=== PATIENT | male | born 1935 | race Caucasian/White ===

== ENCOUNTER → 2016-06-17 | Outpatient (CLI) | payer BC ==
[~2016-06-17] MED LIST: ASPI81TA28 PO; CALC500C50 PO; CZR25 PO; MULT-513 PO; SERT25TA PO
[2016-06-17 13:03] LABS: BASO % 0.1 %; BASO ABS # 0.01 K/uL (0-0.2); COMPLETE YES; EOS % 1.5 %; HEMATOCRIT 44.5 % (42-52); LYMPH ABS # 1.85 K/uL (1.2-3.4); MEAN CELL VOLUME 93.3 fL (80-100); MEAN CORPUSCULAR HEMOGLOBIN 33.1 pg (25-34); MEAN CORPUSCULAR HGB CONC 35.5 g/dl (32-36); MEAN PLATELET VOLUME 9.7 fL (7.4-10.4); NEUT % 61.4 %; PLATELET COUNT 222 K/uL (130-400); RED BLOOD COUNT 4.77 M/uL (4.7-6.1); WHITE BLOOD COUNT 7.12 K/uL (4.8-10.8)
[2016-06-17 13:16] LABS: ALT/SGPT 23 U/L (12-78); AST/SGOT 24 U/L (15-37); BLOOD UREA NITROGEN 15 mg/dl (7-18); BUN/CREATININE RATIO 15.8 (10-20); CALCIUM 9.2 mg/dl (8.5-10.1); CARBON DIOXIDE 23 mmol/L (21-32); CHLORIDE 101 mmol/L (98-107); CHOLESTEROL 160 mg/dl (0-200); CREATININE 0.93 mg/dl (0.60-1.40); GLUCOSE 119 mg/dl (70-99); POTASSIUM 4.3 mmol/L (3.5-5.1); SODIUM 135 mmol/L (136-145); TRIGLYCERIDES 87 mg/dl (0-150); VERY LOW DENSITY LIPOPROT CALC 17 mg/dl
[2016-06-17 13:26] LABS: ALB/GLOB RATIO 1.2 (0.9-2); ALKALINE PHOSPHATASE 72 U/L (45-117); CHOLESTEROL/HDL RATIO 2.9; HDL CHOLESTEROL 55 mg/dl
== END | disposition home or self-care (01) ==
LOC: C.LABSPEC 12:20
PROVIDERS: ATTEND Internal Medicine
DX: I10 Essential (primary) hypertension (principal); E78.5 Hyperlipidemia, unspecified; K59.00 Constipation, unspecified

== ENCOUNTER → 2016-12-16 | Outpatient (CLI) | payer BC ==
[2016-12-16 13:45] LABS: BASO % 0.1 %; BASO ABS # 0.01 K/uL (0-0.2); COMPLETE YES; EOS % 2.6 %; HEMATOCRIT 45.8 % (42-52); LYMPH % 25.4 %; LYMPH ABS # 1.93 K/uL (1.2-3.4); MEAN CELL VOLUME 94.4 fL (80-100); MEAN CORPUSCULAR HEMOGLOBIN 32.6 pg (25-34); MEAN CORPUSCULAR HGB CONC 34.5 g/dl (32-36); MEAN PLATELET VOLUME 9.3 fL (7.4-10.4); MONO % 11.9 %; PLATELET COUNT 231 K/uL (130-400); RED BLOOD COUNT 4.85 M/uL (4.7-6.1); WHITE BLOOD COUNT 7.59 K/uL (4.8-10.8)
[2016-12-16 14:16] LABS: ALT/SGPT 25 U/L (12-78); AST/SGOT 24 U/L (15-37); BLOOD UREA NITROGEN 9 mg/dl (7-18); BUN/CREATININE RATIO 9.2 (10-20); CALCIUM 9.2 mg/dl (8.5-10.1); CARBON DIOXIDE 27 mmol/L (21-32); CHLORIDE 101 mmol/L (98-107); CREATININE 0.94 mg/dl (0.60-1.40); GLUCOSE 98 mg/dl (70-99); POTASSIUM 4.4 mmol/L (3.5-5.1); SODIUM 135 mmol/L (136-145)
[2016-12-16 14:26] LABS: ALB/GLOB RATIO 1.1 (0.9-2); ALKALINE PHOSPHATASE 79 U/L (45-117)
[2016-12-17 07:54] LABS: ESTIMATED AVERAGE GLUCOSE 126 mg/dl; HA1C FLAG Normal (Normal)
--- NOTE | 2016-12-23 08:51 | CODING QUERY MEDICAL NECESSITY ---
SUPPORTING DIAGNOSIS NEEDED Dr. Chari Collins, A supporting diagnosis is required for the test/procedure performed on this patient in order for us to be reimbursed by the patient's insurance. Please provide a supporting diagnosis for the following test/procedure listed below next to the test name along with your signature. *If there is no additional diagnosis for this patient that would support the following test/procedure please document that below next to the test/procedure. Test(s)/Procedure(s) that require a supporting diagnosis: * [id number] GLYCATED HEMOGLOBIN DIAGNOSIS: DATE OF SERVICE: 12/16/16 Provider Signature: Date: Thank you Ish Meléndez [facility] Once completed, please kindly fax back to [phone] For questions please call [phone]
== END | disposition home or self-care (01) ==
LOC: C.LABSPEC 12:22
PROVIDERS: ATTEND Internal Medicine
DX: I10 Essential (primary) hypertension (principal); R63.4 Abnormal weight loss; Z85.46 Personal history of malignant neoplasm of prostate; R73.9 Hyperglycemia, unspecified

== ENCOUNTER 2017-10-14 09:36 | Inpatient (IN) | payer BC, OTHER ==
[~2017-10-14] VITALS: Ht 180.3 cm; Wt 86.5 kg
[2017-10-14] MEDS ORDERED: MULT-1093 PO (10:35)
[2017-10-14] MEDS ORDERED: ASPI-435 PO (10:35)
[2017-10-14] MEDS ORDERED: ALPR-412 PO (10:35)
[2017-10-14] MEDS ORDERED: LOSA1TAB PO (10:35)
[2017-10-14] MEDS ORDERED: NAPR1TAB9 PO (10:35)
[2017-10-14] MEDS ORDERED: SIME80CH PO (10:35)
[2017-10-14] MEDS ORDERED: FLUO20CA35 PO (10:35)
[2017-10-14 10:44] LABS: BASO % 0.1 %; BASO ABS # 0.01 K/uL (0-0.2); EOS % 0.7 %; EOS ABS # 0.05 K/uL (0-0.5); HEMATOCRIT 40.7 % (42-52); HEMOGLOBIN 14.8 g/dL (14.0-18.0); IG# 0.02 K/uL (0.00-0.02); LYMPH % 13.4 %; LYMPH ABS # 0.95 K/uL (1.2-3.4); MEAN CELL VOLUME 93.1 fL (80-100); MEAN CORPUSCULAR HEMOGLOBIN 33.9 pg (25-34); MEAN CORPUSCULAR HGB CONC 36.4 g/dl (32-36); MEAN PLATELET VOLUME 8.5 fL (7.4-10.4); MONO % 9.9 %; NEUT % 75.6 %; NEUT ABS # 5.37 K/uL (1.4-6.5); PLATELET COUNT 184 K/uL (130-400); RED CELL DISTRIBUTION WIDTH CV 12.8 % (11.5-14.5); RED CELL DISTRIBUTION WIDTH SD 43.9 fL (36.4-46.3)
--- NOTE | 2017-10-14 10:48 | EMERGENCY ROOM VISIT NOTE ---
History Report prepared by Alexander: Roberto Vega Under the Supervision of: Dr. Antoni Norman M.D. First contact with patient: 10:02 Chief Complaint: MENTAL HEALTH EVALUATION Stated Complaint: MENTAL HEALTH-ANXIETY/DARK THOUGHTS SENT BY PCP History of Present Illness The patient is an 82 year old white male with a past medical history of prostates cancer, spinal stenosis, and anxiety who presents to the ED with a cc of worsening anxiety beginning 3 months ago. Pt sates he was on sertraline without problems for 5 years. He reports he stopped taking it a few months ago and developed shakes in June. The patient's daughter notes he also started to have constipation. She states he was extremely compulsive and had to make sure he flushed his toilet and turned the facets off. The daughter reports he eventually started revolving his day around if he had a BM or not. She notes he started taking Xanax and Prozac in July, and he started to do slightly better. The daughter states the patient's Prozac was increased, and he is now more agitated. He reports he had a vision he was standing next to his grandchildren holding a knife. The patient notes he does not want to hurt them, but he feels like they may get hurt. He states he called his PCP and was told to come to the ED. Negative SI, HI, a history of hurting himself, alcohol use, tobacco use, drug use, auditory hallucinations, visual hallucination. Pt notes he does not have a psychiatrist or psychologist. All of his psychiatric needs are monitored by his PCP. Source of History: patient Onset: 3 months ago Quality: other (anxiety) Timing: worsening Modifying Factors (Worsening): other (increasing Prozac dosage) Note: Associated symptoms: visual thoughts of holding a knife Denies: SI, HI, a history of hurting himself, alcohol use, tobacco use, drug use , auditory hallucinations, visual hallucination. Review of Systems See HPI for pertinent positives and negatives. A total of ten systems were reviewed and were otherwise negative. Past Medical & Surgical Medical Problems: (1) Anxiety (2) OCD (obsessive compulsive disorder) (3) Prostate cancer (4) Spinal stenosis Family History Patient reports no known family medical history. Social History Smoking Status: Former Smoker Marital Status: Occupation Status: retired Current/Historical Medications Scheduled Alprazolam (Alprazolam), 0.25 MG PO BID Aspirin (Aspirin 81), 81 MG PO DAILY Fluoxetine (Prozac), 20 MG PO DAILY Losartan Potassium (Cozaar), 25 MG PO DAILY Multiple Vitamins W/ Minerals (Centrum Silver 50+Men), 1 TAB PO DAILY Naproxen (Aleve), 220 MG PO BID Simethicone (Gas-X), 160 MG PO TIDM Allergies Coded Allergies: No Known Allergies (Unverified , 07/07/13) Physical Exam Vital Signs Date Time Temp Pulse Resp B/P (MAP) Pulse Ox O2 Delivery O2 Flow Rate FiO2 10/14/17 11:40 81 18 136/78 95 Room Air 10/14/17 09:40 37.2 89 18 129/84 95 Room Air Physical Exam GENERAL: Awake, alert, well-appearing, NAD HENT: Normocephalic, atraumatic. EYES: Normal conjunctiva. Sclera non-icteric. PERRL. No anisocoria. NECK: Supple. No nuchal rigidity. FROM. RESPIRATORY: CTAB, no rhonchi, wheezing, crackles CARDIAC: RRR, no MRG ABDOMEN: Soft, NTND, BS+ MSK: No chest wall TTP, no LE edema NEURO: GCS 15, CN 2-12 intact, moves all 4s on command SKIN: No rash or jaundice noted. PSYCH: No SI, HI, or AVH Medical Decision & Procedures Laboratory Results 10/14/17 10:29 Red Blood Count 4.37, Mean Corpuscular Volume 93.1, Mean Corpuscular Hemoglobin 33.9, Mean Corpuscular Hemoglobin Concent 36.4, Mean Platelet Volume 8.5, Neutrophils (%) (Auto) 75.6, Lymphocytes (%) (Auto) 13.4, Monocytes (%) (Auto) 9.9, Eosinophils (%) (Auto) 0.7, Basophils (%) (Auto) 0.1, Neutrophils # (Auto) 5.37, Lymphocytes # (Auto) 0.95, Monocytes # (Auto) 0.70, Eosinophils # (Auto) 0.05, Basophils # (Auto) 0.01 10/14/17 10:29 Test 10/14/17 10:29 10/14/17 11:09 White Blood Count 7.10 K/uL (4.8-10.8) Red Blood Count 4.37 M/uL (4.7-6.1) Hemoglobin 14.8 g/dL (14.0-18.0) Hematocrit 40.7 % (42-52) Mean Corpuscular Volume 93.1 fL (80-100) Mean Corpuscular Hemoglobin 33.9 pg (25-34) Mean Corpuscular Hemoglobin Concent 36.4 g/dl (32-36) Platelet Count 184 K/uL (130-400) Mean Platelet Volume 8.5 fL (7.4-10.4) Neutrophils (%) (Auto) 75.6 % Lymphocytes (%) (Auto) 13.4 % Monocytes (%) (Auto) 9.9 % Eosinophils (%) (Auto) 0.7 % Basophils (%) (Auto) 0.1 % Neutrophils # (Auto) 5.37 K/uL (1.4-6.5) Lymphocytes # (Auto) 0.95 K/uL (1.2-3.4) Monocytes # (Auto) 0.70 K/uL (0.11-0.59) Eosinophils # (Auto) 0.05 K/uL (0-0.5) Basophils # (Auto) 0.01 K/uL (0-0.2) RDW Standard Deviation 43.9 fL (36.4-46.3) RDW Coefficient of Variation 12.8 % (11.5-14.5) Immature Granulocyte % (Auto) 0.3 % Immature Granulocyte # (Auto) 0.02 K/uL (0.00-0.02) Anion Gap 8.0 mmol/L (3-11) Est Creatinine Clear Calc Drug Dose 67.7 ml/min Estimated GFR () 92.1 Estimated GFR (Non- 79.4 BUN/Creatinine Ratio 12.9 (10-20) Calcium Level 8.4 mg/dl (8.5-10.1) Total Bilirubin 1.5 mg/dl (0.2-1) Direct Bilirubin 0.4 mg/dl (0-0.2) Aspartate Amino Transf (AST/SGOT) 24 U/L (15-37) Alanine Aminotransferase (ALT/SGPT) 23 U/L (12-78) Alkaline Phosphatase 75 U/L (45-117) Total Protein 7.5 gm/dl (6.4-8.2) Albumin 3.8 gm/dl (3.4-5.0) Thyroid Stimulating Hormone (TSH) 1.530 uIu/ml (0.300-4.500) Salicylates Level < 1.7 mg/dl (2.8-20) Acetaminophen Level < 2 ug/ml (10-30) Ethyl Alcohol mg/dL < 3.0 mg/dl (0-3) Urine Color YELLOW Urine Appearance CLEAR (CLEAR) Urine pH 7.5 (4.5-7.5) Urine Specific [place] 1.017 (1.000-1.030) Urine Protein NEG (NEG) Urine Glucose (UA) NEG (NEG) Urine Ketones 1+ (NEG) Urine Occult Blood NEG (NEG) Urine Nitrite NEG (NEG) Urine Bilirubin NEG (NEG) Urine Urobilinogen NEG (NEG) Urine Leukocyte Esterase NEG (NEG) Urine Opiates Screen NEG (NEG) Urine Methadone, Qualitative NEG (NEG) Urine Barbiturates NEG (NEG) Urine Phencyclidine (PCP) Level NEG (NEG) Ur Amphetamine/Methamphetamine NEG (NEG) MDMA (Ecstasy) Screen NEG (NEG) Urine Benzodiazepines Screen POS (NEG) Urine Cocaine Metabolite NEG (NEG) Urine Marijuana (THC) NEG (NEG) Laboratory results reviewed by me ED Course 1044: The patient was evaluated in room A05. A complete history and physical exam was performed. 1316: I reevaluated the patient and discussed his test results. The patient was accepted to [facility] for further management and care. Medical Decision Nursing notes reviewed. Ancillary studies and prior records reviewed. The patient is an 82 year old white male with a past medical history of prostates cancer, spinal stenosis, and anxiety who presents to the ED with a cc of worsening anxiety beginning 3 months ago. Differential diagnosis: Etiologies such as mood disorder, infection, hypoglycemia, electrolyte abnormalities, cardiac sources, intracerebral event, toxicologic, neurologic, as well as others were entertained. Patient was seen and evaluated the bedside. Patient does have a known history of anxiety and depression. Patient had been on sertraline this year but was taken off due to some what he describes as "shakes." Patient was then started on some Prozac and was taking some Xanax. Patient has had some morbid thoughts including holding a knife over his grandchildren. The patient denies any acute SI, HI, or AVH. The patient denies any alcohol or drug abuse. The patient did have blood work completed in the patient was seen by the mental health specialist. Mild hypocalcemia and patient's bilirubin is mildly elevated. Patient denies any abdominal discomfort. I told that they should follow-up with her PCP and if anything worsens could be evaluated while inpatient here. The patient was admitted as a voluntary inpatient treatment was taken upstairs. Medication Reconcilliation Current Medication List: was personally reviewed by me Blood Pressure Screening Patient's blood pressure: Elevated blood pressure Impression Primary Impression: Depression Scribe Attestation The scribe's documentation has been prepared under my direction and personally reviewed by me in its entirety. I confirm that the note above accurately reflects all work, treatment, procedures, and medical decision making performed by me. Departure Information Dispostion Mental Health Acute Care Referrals Shaun Pathak M.D. (PCP) Patient Instructions My [facility] Problem Qualifiers Primary Impression: Depression Depression Type: unspecified Qualified Codes: F32.9 - Major depressive disorder, single episode, unspecified
[2017-10-14 11:13] LABS: ALBUMIN 3.8 gm/dl (3.4-5.0); CALCIUM 8.4 mg/dl (8.5-10.1); CREATININE 0.88 mg/dl (0.60-1.40); POTASSIUM 4.2 mmol/L (3.5-5.1); TOTAL PROTEIN 7.5 gm/dl (6.4-8.2)
[2017-10-14] MEDS ORDERED: ALUMINUM/MAGNESIUM SUSP 30 ML UDC PO PRN (13:00)
[2017-10-14] MEDS ORDERED: ACETAMINOPHEN 325 MG TAB PO PRN (13:00)
[2017-10-14] MEDS ORDERED: MAGNESIUM HYDROXIDE SUSP 30 ML UDC PO PRN (13:00)
[2017-10-14] MEDS ORDERED: hydrOXYzine HCL 25 MG TAB PO PRN ×2 (13:00)
[2017-10-14] MEDS ORDERED: BISMUTH SUBSALICYLATE PER ML OMNICELL CHARGE PO PRN (13:00)
[2017-10-14] MEDS ORDERED: SODIUM CHLORIDE 0.65% NA SOLN 45 ML (OCEAN) PRN (13:00)
[2017-10-14 13:35] VITALS: O2SAT 96
--- NOTE | 2017-10-14 13:44 | Psychiatric History & Physical ---
History Date of Service October 14, 2017. Identifying Data Vikram Ac is a 82-year-old male with anxiety treated by his PCP who was admitted voluntarily on 10/14/2017 for worsening anxiety and intrusive thoughts of harming others. Chief Complaint "For some reason, come June this year, I started going downhill". History of Present Illness Patient presented to the emergency room today with his daughter on referral from his PCPs office for thoughts of harming others. He has a history of anxiety for which she was successfully treated with sertraline for 5 years, but stopped taking the medication several months ago, and developed "shakes" in June. He also became obsessed with his bowel movements, was revolving his entire day around whether or not he had a bowel movement, and was checking repeatedly to see if he flushed the toilet and turn to the faucets off. In July, he was started on fluoxetine and alprazolam, and symptoms improved. His fluoxetine dose was increased at some point, and he became more agitated. He reported a vision of himself standing next to his grandchildren holding a knife , and although he stated he did not want to hurt them, he was afraid that they would get hurt. He called his PCP who instructed him to go to the emergency room. Spoke to Dr. Chari Collins, his PCP who treats his anxiety. He reports the patient was on sertraline for years, and was 25mg daily when he started seeing him in 2012. He reports obsessive thoughts, often around his urinary frequency and bowel movements. He went off the SSRI but his then noticed symptoms, so he was started on fluoxetine 10mg. On 10/01/17 he reported increased obsessions with his bowel movements, so the dose was increased to 20mg daily. He was also prescribing alprazolam 0.25mg bid prn. The patient reports he has had long standing anxiety, but it worsened in Jun. when he started having constipation and became more worried about symptoms. This past Thursday, he had intrusive thoughts of himself standing beside his grandchildren while holding a knife, and worried that he would harm them. He denies any intent or desire to harm them, but felt "panicked" about it. Denies VH, "it was just a thought." He stayed up all night worrying about it. He told his the next day, and felt better. The next morning, he woke up and "thought I had a screwdriver in my hand," even though he didn't. Again denies that he had a hallucination, but just "saw it in my mind." This caused him to feel very scared, and they called his family doctor. He notes his family was all supposed to come into town this weekend for the holiday, and he was afraid to have his grandkids in the house with these thoughts. He reports anxiety for several years, for which he was initially on sertraline, which helped. He says his PCP switched him from sertraline to fluoxetine, and isn't sure why as he thinks the sertraline was working and his anxiety was well controlled. He says he's always worried a lot, about everything, finds it difficult to control the worry, and it affects his daily life. He endorsing repeated checking everything in the house, including lights, stove, faucets. He will shut things off several times to ensure that it's really off. He says he has prostate cancer 20+ years ago, which has caused urinary frequency, so goes to the bathroom frequently. He has been very focused on his bowel movements, and says his "whole day is ruined if I didn't have a bowel movement." He has been isolating at home, and relies heavily on his , feeling very anxious being away from her. He reports episodes of high anxiety and "shakiness," but denies other panic symptoms. Describes mood as anxious, "not a very nice person to be around." Has been more irritable and sad, denies tearfulness, SI, and anhedonia. Energy has been low, appetite is decreased with at least a 10lb weight loss in the past 3 months, and he feels easily fatigued. Denies hallucinations, jose maria, paranoia. Does report memory has been worse over the past 3 months, not able to recall names. He is worried that the fluoxetine is causing side effects, as he and his read about it. He has been taking Xanax 0.25mg bid since Jun., and initially thought it helped, but anxiety then worsened over the past few weeks, despite increasing his fluoxetine dose. Exacerbating factors include worsening physical health, as hasn't been able to go to the gym regularly for the past two months due to spinal stenosis and chronic rib and back pain. He enjoys watching sports on TV, and time with family. Past Psychiatric History Current OP Treatment: no current treatment Prior OP Treatment: no prior treatment Prior Psych Hospitalizations: none Access to a Gun: Yes Suicide Attempts: No Past Medical/Surgical History (1) Spinal stenosis (2) Prostate cancer (3) Fracture dislocation of ankle Allergies Allergies: Coded Allergies: No Known Allergies (Unverified , 07/07/13) Home Medications Scheduled Alprazolam (Alprazolam), 0.25 MG PO BID Aspirin (Aspirin 81), 81 MG PO DAILY Fluoxetine (Prozac), 20 MG PO DAILY Losartan Potassium (Cozaar), 25 MG PO DAILY Multiple Vitamins W/ Minerals (Centrum Silver 50+Men), 1 TAB PO DAILY Naproxen (Aleve), 220 MG PO BID Simethicone (Gas-X), 160 MG PO TIDM Family History Patient reports no known family medical history. History of Suicide: No History of Substance Abuse: Yes (Oldest brother "drank himself to .") Psychiatric History: Yes (older sister with "mental problems her whole life," and had ECT. Doesn't know her diagnoses, notes she was a hoarder. ) Alcohol Use Alcohol Use In Past 12 Months: Yes (Occasional) Used to drink heavily, up to 6 beers daily, but cut back in the 90s. Now drinks once every few months, 1 drink. Smoking Use Smoking Status: Former Smoker Substance History Denies. Personal History Lives in: [place] with his Childhood: From [place]. Youngest of 5 children. Living in [place] since 1964. 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 Relationship History: Children: 4 children, 9 grandkids Spiritual Affiliation: "I read the Bible every day." [facility] History: none Psychological Trauma History: Denies Hx Traumatic Event, Other Additional Comments: Hasn't been going to religious for the past few months due to not feeling well. Review of Systems 10 systems reviewed - +rib and back pain, chronic urinary frequency, constipation, hard of hearing and has hearing aids, difficulty walking (uses cane), leg numbness, decreased appetite. Others negative except as stated above. Examination Physical Examination A physical exam was performed [in the ER] [on the medical floor] prior to admission to the unit by [ ]. I accept that physical as correct/medical clearance for the inpatient physical exam. Vital Signs Vital Signs Past 12 Hours Date Time Temp Pulse Resp B/P (MAP) Pulse Ox O2 Delivery O2 Flow Rate FiO2 10/14/17 13:12 89 18 139/78 96 Room Air 10/14/17 11:40 81 18 136/78 95 Room Air 10/14/17 09:40 37.2 89 18 129/84 95 Room Air Laboratory Results Last 24 Hours Test 10/14/17 10:29 10/14/17 11:09 White Blood Count 7.10 K/uL Red Blood Count 4.37 M/uL Hemoglobin 14.8 g/dL Hematocrit 40.7 % Mean Corpuscular Volume 93.1 fL Mean Corpuscular Hemoglobin 33.9 pg Mean Corpuscular Hemoglobin Concent 36.4 g/dl Platelet Count 184 K/uL Mean Platelet Volume 8.5 fL Neutrophils (%) (Auto) 75.6 % Lymphocytes (%) (Auto) 13.4 % Monocytes (%) (Auto) 9.9 % Eosinophils (%) (Auto) 0.7 % Basophils (%) (Auto) 0.1 % Neutrophils # (Auto) 5.37 K/uL Lymphocytes # (Auto) 0.95 K/uL Monocytes # (Auto) 0.70 K/uL Eosinophils # (Auto) 0.05 K/uL Basophils # (Auto) 0.01 K/uL RDW Standard Deviation 43.9 fL RDW Coefficient of Variation 12.8 % Immature Granulocyte % (Auto) 0.3 % Immature Granulocyte # (Auto) 0.02 K/uL Sodium Level 131 mmol/L Potassium Level 4.2 mmol/L Chloride Level 97 mmol/L Carbon Dioxide Level 26 mmol/L Anion Gap 8.0 mmol/L Blood Urea Nitrogen 11 mg/dl Creatinine 0.88 mg/dl Est Creatinine Clear Calc Drug Dose 67.7 ml/min Estimated GFR () 92.1 Estimated GFR (Non- 79.4 BUN/Creatinine Ratio 12.9 Random Glucose 99 mg/dl Calcium Level 8.4 mg/dl Total Bilirubin 1.5 mg/dl Direct Bilirubin 0.4 mg/dl Aspartate Amino Transf (AST/SGOT) 24 U/L Alanine Aminotransferase (ALT/SGPT) 23 U/L Alkaline Phosphatase 75 U/L Total Protein 7.5 gm/dl Albumin 3.8 gm/dl Thyroid Stimulating Hormone (TSH) 1.530 uIu/ml Salicylates Level < 1.7 mg/dl Acetaminophen Level < 2 ug/ml Ethyl Alcohol mg/dL < 3.0 mg/dl Urine Color YELLOW Urine Appearance CLEAR Urine pH 7.5 Urine Specific [place] 1.017 Urine Protein NEG Urine Glucose (UA) NEG Urine Ketones 1+ Urine Occult Blood NEG Urine Nitrite NEG Urine Bilirubin NEG Urine Urobilinogen NEG Urine Leukocyte Esterase NEG Urine Opiates Screen NEG Urine Methadone, Qualitative NEG Urine Barbiturates NEG Urine Phencyclidine (PCP) Level NEG Ur Amphetamine/Methamphetamine NEG MDMA (Ecstasy) Screen NEG Urine Benzodiazepines Screen POS Urine Cocaine Metabolite NEG Urine Marijuana (THC) NEG Mental Examination During interview pt is: alert and oriented, cooperative Appearance: appropriately dressed, appropriately groomed Eye contact is: fair Motor behavior is: steady gait & station (walks with a cane), no abnormal motor movements Speech: normal in rate, rhythm & volume Affect: mood congruent, blunted Mood is: depressed, anxious Thought process: goal directed, linear, logical, clear, coherent Thought content: reality based without delusions Suicidal thought are: denied Homicidal thoughts are: present Hallucinations: denies auditory, denies visual Cognition: memory grossly intact, attention grossly intact, language grossly intact Intelligence estimated to be: above average Insight: fair Judgement: fair Impression / Recommendations Impression 82-year-old male with a history of anxiety treated by his PCP who presents with worsening anxiety and depression and intrusive thoughts to harm others. He was switched from low-dose sertraline to fluoxetine several months ago, and says his symptoms worsened at that time. He had 2 episodes of intrusive thoughts of harming others in the past 2 days, which were very concerning to him. He requires inpatient treatment due to the severity of his symptoms and the risk of harm to himself or others. Inventory Assets Strengths: Intelligence, good insight, supportive family, willing for treatment Needs: Medication adjustments to target severe anxiety, outpatient care Risk Factors Assessment Male: Yes : Yes /single/: No Higher / Fall in social status: No Access to guns: Yes Health problems: Yes Mental Health Diagnoses: Yes Substance use disorders: No Previous attempt: No Previous psychiatric stay: No Hopelessness: No Smoker: No Protective Factors Assessment Hinduism beliefs: Yes : Yes Responsible for young children: No Employed: No Stable relationships: Yes Supportive family: Yes Good rapport with provider: Yes Recommendations (1) Anxiety 10/14 -meets criteria for generalized anxiety disorder. Discussed his diagnoses with him, and the treatment options. Feels symptoms are much better controlled on sertraline, and would like to switch back. Discontinue fluoxetine, and start sertraline 25 mg daily tomorrow. May benefit from an increase to 50 mg daily, as he had never been on doses over 25 mg in the past. -discussed risks of long-term benzodiazepine use, including cognitive impairment (which he is already reporting), increased fall risk, development of tolerance, and AMS. Ideally these would be used only short-term, and only when needed. He feels it is helpful for bedtime, so will schedule alprazolam 0.25 mg nightly, and ordered the second dose daily as needed. He has been advised not to mix this with alcohol. Would recommend it be tapered off as soon as his symptoms stabilized. -Involve the patient in groups and therapy on the unit, work on healthy coping skills, behavioral techniques for managing anxiety, and a discharge safety plan. -Family meeting with and daughter. Review plan to secure guns. -Refer for outpatient psychiatric care. Care coordinated with his PCP, Dr. Felix, today. (2) OCD (obsessive compulsive disorder) 10/14 -switch from fluoxetine to sertraline. Introduced the role of therapy and treatment of OCD, and refer for outpatient therapy (3) Depression 10/14 - Starting to develop depressive symptoms in the context of worsening anxiety. Encourage group attendance and participation CPT Code Initial Hospital Care: 46247 Problem Qualifiers (1) Depression: Depression Type: major depressive disorder Major depression recurrence: single episode Active/Remission status: currently active Major depression episode severity: moderate Qualified Codes: F32.1 - Major depressive disorder , single episode, moderate
[2017-10-14] MEDS ORDERED: ALPRAZOLAM 0.25 MG TAB PO PRN ×2 (14:30→14:45)
[2017-10-14 16:16] VITALS: BP 103/74; PULSE 73; TEMP 36.5; Ht 180.3 cm; Wt 86.5 kg
[2017-10-14] MEDS: SIMETHICONE 80 MG CHEW PO SCH (17:13)
[2017-10-14] MEDS: POLYETHYLENE (MIRALAX) 17 GM PACK PO PRN (18:56)
[2017-10-14] MEDS: ALPRAZOLAM 0.25 MG TAB PO SCH (21:32)
[2017-10-14] MEDS: NAPROXEN 250 MG TAB PO SCH (21:33)
[2017-10-15 06:52] VITALS: BP_SYST 120; BP_SYST 121; BP_DIAS 68; BP_DIAS 72; PULSE 59; PULSE 61; TEMP 36.5
[2017-10-15] MEDS: CEROVITE ADV FORMULA TAB PO SCH (07:55)
[2017-10-15] MEDS: LOSARTAN POTASSIUM 25 MG TAB PO SCH (07:55)
[2017-10-15] MEDS: SIMETHICONE 80 MG CHEW PO SCH ×3 (07:55→17:49)
[2017-10-15] MEDS: ASPIRIN 81 MG ECTAB PO SCH (07:55)
[2017-10-15] MEDS: NAPROXEN 250 MG TAB PO SCH (08:07)
[2017-10-15] MEDS ORDERED: NAPROXEN 250 MG TAB PO PRN (08:30)
[2017-10-15] MEDS ORDERED: SERTRALINE HCL 50 MG TAB PO SCH (09:00)
--- NOTE | 2017-10-15 10:59 | Psychiatric Progress Notes ---
Progress Note Date of Service October 15, 2017. Interval History Vikram Ac is a 82-year-old male with anxiety treated by his PCP who was admitted voluntarily on 10/14/2017 for worsening anxiety and intrusive thoughts of harming others. Chief Complaint "Better since I learned the system ". Subjective Patient was seen & assessed with Sreedhar Owusu MS4, and interval progress reviewed with nursing. Staff report he was very anxious yesterday, although reported it was helpful to have staff explain what would be happening next, and that he would be checked on overnight. He was very worried about being able to get to the bathroom in time overnight. His family visited, and his affect brightened when they were here. He is attending groups, and met with the parks worker today to schedule a family meeting. He received his scheduled dose of alprazolam last night, but did not require the as needed dose. On my assessment, he states that he was very anxious upon arriving on the unit, as he did not realize "that would be so many restrictions." He feels more comfortable now that he has settled in. His mood is improved, but he continues to have anxiety. He says he woke up in the middle of the night and felt "jittery," but managed it by praying and thinking about positive memories involving his family , and was able to fall back asleep. Less compulsions here, as the faucets are automatic and he doesn't have to check that the doors are locked or flip the light switches. He denies SI and HI, no intrusive thoughts of harming others. He had a good visit with his family, notes it was "too short" and misses them. He is tolerating sertraline well and agreeable to increasing his dose to 50mg for tomorrow. Review of Systems No GI symptoms, + back pain Sleep Information Total Hours of Sleep: 6.50 Meal Information Percent of Breakfast Consumed: 100 Percent of Dinner Consumed: 95 Mental Status Exam During interview pt is: alert and oriented, cooperative Appearance: appropriately dressed, appropriately groomed Eye contact is: good Motor behavior is: steady gait & station (walks with a cane), no abnormal motor movements Speech: normal in rate, rhythm & volume Affect: mood congruent, anxious (but bright, reactive, smiling) Mood is: other ("better") Thought process: goal directed, linear, logical, clear, coherent Thought content: reality based without delusions Suicidal thought are: denied Homicidal thoughts are: present Hallucinations: denies auditory, denies visual Cognition: memory grossly intact, attention grossly intact, language grossly intact Intelligence estimated to be: above average Insight: fair Judgement: fair Impression 82-year-old male with a history of anxiety treated by his PCP who presents with worsening anxiety and depression and intrusive thoughts to harm others. He was switched from low-dose sertraline to fluoxetine several months ago, and says his symptoms worsened at that time. He had 2 episodes of intrusive thoughts of harming others in the 2 days prior to presentation, which were very concerning to him. He opted to switch back to sertraline, and we are titrating to an effective dose, while introducing techniques that he can utilize to manage his severe anxiety and OCD. He requires inpatient treatment due to the severity of his symptoms and the risk of harm to himself or others. Plan (1) Anxiety 10/14 -meets criteria for generalized anxiety disorder. Discussed his diagnoses with him, and the treatment options. Feels symptoms are much better controlled on sertraline, and would like to switch back. Discontinue fluoxetine, and start sertraline 25 mg daily tomorrow. May benefit from an increase to 50 mg daily, as he had never been on doses over 25 mg in the past. -discussed risks of long-term benzodiazepine use, including cognitive impairment (which he is already reporting), increased fall risk, development of tolerance, and AMS. Ideally these would be used only short-term, and only when needed. He feels it is helpful for bedtime, so will schedule alprazolam 0.25 mg nightly, and ordered the second dose daily as needed. He has been advised not to mix this with alcohol. Would recommend it be tapered off as soon as his symptoms stabilized. -Involve the patient in groups and therapy on the unit, work on healthy coping skills, behavioral techniques for managing anxiety, and a discharge safety plan. -Family meeting with and daughter. Review plan to secure guns. -Refer for outpatient psychiatric care. Care coordinated with his PCP, Dr. Felix, today. 10/15 - Increase sertraline to 50mg daily for tomorrow. Continue current dose of alprazolam - if doesn't need daytime prn dose, would discontinue at discharge. - Refer for OP psychiatric f/u and therapy. - Family meeting with and daughter. - Work on safety plan and coping skills. (2) OCD (obsessive compulsive disorder) 10/14 -switch from fluoxetine to sertraline. Introduced the role of therapy and treatment of OCD, and refer for outpatient therapy 10/15 - See above. (3) Depression 10/14 - Starting to develop depressive symptoms in the context of worsening anxiety. Encourage group attendance and participation Discharge / Aftercare Planning Primary Care Physician: Name: Dr. Felix Appointment Notes: [address] [place] [id number] Visit Code E&M Code: 71286 Inventory Assets Strengths: Intelligence, good insight, supportive family, willing for treatment Needs: Medication adjustments to target severe anxiety, outpatient care Risk Factors Assessment Male: Yes : Yes /single/: No Higher / Fall in social status: No Access to guns: Yes Health problems: Yes Mental Health Diagnoses: Yes Substance use disorders: No Previous attempt: No Family history of suicide: No Previous psychiatric stay: No Hopelessness: No Smoker: No Protective Factors Assessment Mormon beliefs: Yes : Yes Responsible for young children: No Employed: No Stable relationships: Yes Supportive family: Yes Good rapport with provider: Yes Data Vital Signs Last 24 Hrs: Date Time Temp Pulse Resp B/P (MAP) Pulse Ox O2 Delivery O2 Flow Rate FiO2 10/15/17 06:52 36.5 61 18 121/68 59 120/72 10/14/17 16:16 36.5 73 20 103/74 10/14/17 13:35 89 18 139/78 96 10/14/17 13:12 89 18 139/78 96 Room Air 10/14/17 11:40 81 18 136/78 95 Room Air Meds Administered Last 24 Hrs: Meds Administered (Past 24Hrs) Medications (Trade) Dose Ordered Sig/Ruba Route Start Time Stop Time Status Last Admin Dose Admin Aspirin (Ecotrin Tab) 81 mg DAILY PO 10/15/17 09:00 11/14/17 08:59 10/15/17 07:55 81 MG Losartan Potassium (coZAAR TAB) 25 mg DAILY PO 10/15/17 09:00 6/23/18 08:59 10/15/17 07:55 25 MG Multivitamins/ Minerals (Multivitamin W/ Minerals Tab) 1 tab DAILY PO 10/15/17 09:00 11/14/17 08:59 10/15/17 07:55 1 TAB Simethicone (Mylicon Chew Tab) 160 mg TIDM PO 10/14/17 17:45 11/13/17 17:59 10/15/17 07:55 160 MG Naproxen (Naprosyn Tab) 250 mg BID PO 10/14/17 21:00 10/15/17 08:18 DC 10/14/17 21:33 250 MG Polyethylene (Miralax Powder Packet) 17 gm DAILY PRN PO 10/14/17 14:30 11/13/17 14:29 10/14/17 18:56 17 GM Alprazolam (Xanax Tab) 0.25 mg HS PO 10/14/17 22:00 11/13/17 14:29 10/14/17 21:32 0.25 MG Sertraline HCl (Zoloft Tab) 25 mg QAM PO 10/15/17 09:00 11/14/17 08:59 10/15/17 07:56 25 MG Lab Results Last 24 Hrs: Last 24 Hours Test 10/14/17 10:29 10/14/17 11:09 White Blood Count 7.10 K/uL Red Blood Count 4.37 M/uL Hemoglobin 14.8 g/dL Hematocrit 40.7 % Mean Corpuscular Volume 93.1 fL Mean Corpuscular Hemoglobin 33.9 pg Mean Corpuscular Hemoglobin Concent 36.4 g/dl Platelet Count 184 K/uL Mean Platelet Volume 8.5 fL Neutrophils (%) (Auto) 75.6 % Lymphocytes (%) (Auto) 13.4 % Monocytes (%) (Auto) 9.9 % Eosinophils (%) (Auto) 0.7 % Basophils (%) (Auto) 0.1 % Neutrophils # (Auto) 5.37 K/uL Lymphocytes # (Auto) 0.95 K/uL Monocytes # (Auto) 0.70 K/uL Eosinophils # (Auto) 0.05 K/uL Basophils # (Auto) 0.01 K/uL RDW Standard Deviation 43.9 fL RDW Coefficient of Variation 12.8 % Immature Granulocyte % (Auto) 0.3 % Immature Granulocyte # (Auto) 0.02 K/uL Sodium Level 131 mmol/L Potassium Level 4.2 mmol/L Chloride Level 97 mmol/L Carbon Dioxide Level 26 mmol/L Anion Gap 8.0 mmol/L Blood Urea Nitrogen 11 mg/dl Creatinine 0.88 mg/dl Est Creatinine Clear Calc Drug Dose 67.7 ml/min Estimated GFR () 92.1 Estimated GFR (Non- 79.4 BUN/Creatinine Ratio 12.9 Random Glucose 99 mg/dl Calcium Level 8.4 mg/dl Total Bilirubin 1.5 mg/dl Direct Bilirubin 0.4 mg/dl Aspartate Amino Transf (AST/SGOT) 24 U/L Alanine Aminotransferase (ALT/SGPT) 23 U/L Alkaline Phosphatase 75 U/L Total Protein 7.5 gm/dl Albumin 3.8 gm/dl Thyroid Stimulating Hormone (TSH) 1.530 uIu/ml Salicylates Level < 1.7 mg/dl Acetaminophen Level < 2 ug/ml Ethyl Alcohol mg/dL < 3.0 mg/dl Urine Color YELLOW Urine Appearance CLEAR Urine pH 7.5 Urine Specific [facility] 1.017 Urine Protein NEG Urine Glucose (UA) NEG Urine Ketones 1+ Urine Occult Blood NEG Urine Nitrite NEG Urine Bilirubin NEG Urine Urobilinogen NEG Urine Leukocyte Esterase NEG Urine Opiates Screen NEG Urine Methadone, Qualitative NEG Urine Barbiturates NEG Urine Phencyclidine (PCP) Level NEG Ur Amphetamine/Methamphetamine NEG MDMA (Ecstasy) Screen NEG Urine Benzodiazepines Screen POS Urine Cocaine Metabolite NEG Urine Marijuana (THC) NEG Problem Qualifiers (1) Depression: Depression Type: major depressive disorder Major depression recurrence: single episode Active/Remission status: currently active Major depression episode severity: moderate Qualified Codes: F32.1 - Major depressive disorder , single episode, moderate
[2017-10-15] MEDS: POLYETHYLENE (MIRALAX) 17 GM PACK PO PRN (17:49)
[2017-10-15] MEDS: ALPRAZOLAM 0.25 MG TAB PO SCH (21:27)
[2017-10-16 06:35] VITALS: BP_SYST 121; BP_SYST 136; BP_DIAS 75; BP_DIAS 78; PULSE 70; PULSE 72; TEMP 36.6
[2017-10-16] MEDS: SERTRALINE HCL 50 MG TAB PO SCH (08:40)
[2017-10-16] MEDS: CEROVITE ADV FORMULA TAB PO SCH (08:40)
[2017-10-16] MEDS: SIMETHICONE 80 MG CHEW PO SCH ×3 (08:40→18:09)
[2017-10-16] MEDS: ASPIRIN 81 MG ECTAB PO SCH (08:40)
[2017-10-16] MEDS: LOSARTAN POTASSIUM 25 MG TAB PO SCH (08:40)
--- NOTE | 2017-10-16 09:25 | Psychiatric Progress Notes ---
Progress Note Date of Service October 16, 2017. Interval History Vikram Ac is a 82-year-old male with anxiety treated by his PCP who was admitted voluntarily on 10/14/2017 for worsening anxiety and intrusive thoughts of harming others. Chief Complaint "I'm just trying to get everything in order this morning before my get together , feeling a little anxious". Subjective Patient was seen & assessed interval progress reviewed with Treatment Team. Staff reports the patient has shown improvement in his level of anxiety while here on the unit. He is scheduled for a family meeting with his and youngest daughter today. Pt was seen this morning to assess progress since admission. He states he has been feeling "a bit jittery" this morning, as he is not sure what to expect at his family session. Pt states he has noticed a decrease in anxiety overall since his admission. He states the initial day was "overwhelming", but he has started to settle in to the unit a bit more. Pt denies side effects with the taper from fluoxetine to sertraline. Pt denies change to sleep or appetite. Denies SI or onset of new psychiatric concerns. Review of Systems Psych: denies symptoms other than stated above Constitutional: denied Cardiovascular: denied GI: reports fluctuations between diarrhea and constipation Neurologic: denied Remainder of 10 body systems also reviewed and denied other than noted above. Sleep Information Total Hours of Sleep: 8.00 Meal Information Percent of Breakfast Consumed: 100 Percent of Lunch Consumed: 100 Percent of Dinner Consumed: 25 Mental Status Exam During interview pt is: alert and oriented, cooperative Appearance: appropriately dressed, appropriately groomed Eye contact is: good Motor behavior is: steady gait & station, no abnormal motor movements Speech: normal in rate, rhythm & volume Affect: mood congruent, anxious (affect bright and reactive) Mood is: anxious ("jittery this morning"), other ("feeling better overall") Thought process: goal directed, linear, logical, clear, coherent Thought content: reality based without delusions Suicidal thought are: denied Homicidal thoughts are: denied Hallucinations: denies auditory, denies visual Cognition: memory grossly intact, attention grossly intact, language grossly intact Intelligence estimated to be: above average Insight: fair Judgement: fair Impression Pt reports improvement in level of anxiety since settling in to the unit a bit more. He denies any side effects or concerns related to switching from fluoxetine back to sertraline. Pt denies any thoughts of self harm and does not report any concerns for intrusive thoughts of harming others. Pt states his anxiety has been decreased and continuous tapering of alprazolam has been tolerable. He has a family meet scheduled today with his and daughter. Pt is looking forward to returning home, and will be able to better gauge length of ongoing treatment following his family session. At this point requires ongoing inpatient mental health treatment as we continue to titrate medications and focus on the development of healthy and sustainable coping skills to better manage anxiety. Plan (1) Anxiety 10/14 -meets criteria for generalized anxiety disorder. Discussed his diagnoses with him, and the treatment options. Feels symptoms are much better controlled on sertraline, and would like to switch back. Discontinue fluoxetine, and start sertraline 25 mg daily tomorrow. May benefit from an increase to 50 mg daily, as he had never been on doses over 25 mg in the past. -discussed risks of long-term benzodiazepine use, including cognitive impairment (which he is already reporting), increased fall risk, development of tolerance, and AMS. Ideally these would be used only short-term, and only when needed. He feels it is helpful for bedtime, so will schedule alprazolam 0.25 mg nightly, and ordered the second dose daily as needed. He has been advised not to mix this with alcohol. Would recommend it be tapered off as soon as his symptoms stabilized. -Involve the patient in groups and therapy on the unit, work on healthy coping skills, behavioral techniques for managing anxiety, and a discharge safety plan. -Family meeting with and daughter. Review plan to secure guns. -Refer for outpatient psychiatric care. Care coordinated with his PCP, Dr. Felix, today. 10/15 - Increase sertraline to 50mg daily for tomorrow. Continue current dose of alprazolam - if doesn't need daytime prn dose, would discontinue at discharge. - Refer for OP psychiatric f/u and therapy. - Family meeting with and daughter. - Work on safety plan and coping skills. 10/06 - Sertraline 50mg; titrating as needed - Alprazolam .25 qHS; has not required daily prn of same dose - Family session today; encourage work on safety plan in preparation for discharge in the next few days - Will be seeing Dr. Marcelo for psychiatric med management and Sami Pappas for OP therapy sessions with focus on treatment of OCD. (2) OCD (obsessive compulsive disorder) 10/14 -switch from fluoxetine to sertraline. Introduced the role of therapy and treatment of OCD, and refer for outpatient therapy 10/15 - See above. 10/16 - sertraline at 50mg qAM (3) Depression 10/14 - Starting to develop depressive symptoms in the context of worsening anxiety. Encourage group attendance and participation Discharge / Aftercare Planning Primary Care Physician: Name: Dr. Felix Appointment Notes: [address] [place] [id number] Psychiatrist: Name: Salbador - Dr. Cassi Marcelo - bring credit card , ID , and insurance card Date of Appointment: October 22, 2017 Time of Appointment: 12:30 pm Appointment Notes: [address] [facility] [address], [place] [address] Therapist: Name: Dr. Eugene Pappas Date of Appointment: October 21, 2017 Time of Appointment: 2:00 pm Appointment Notes: [address], [place] [address] Can Top Setter: Name: none Visit Code E&M Code: 33169 Inventory Assets Strengths: Intelligence, good insight, supportive family, willing for treatment Needs: Medication adjustments to target severe anxiety, outpatient care Risk Factors Assessment Male: Yes : Yes /single/: No Higher / Fall in social status: No Access to guns: Yes Health problems: Yes Mental Health Diagnoses: Yes Substance use disorders: No Previous attempt: No Family history of suicide: No Previous psychiatric stay: No Hopelessness: No Smoker: No Protective Factors Assessment Sikhism beliefs: Yes : Yes Responsible for young children: No Employed: No Stable relationships: Yes Supportive family: Yes Good rapport with provider: Yes Data Vital Signs Last 24 Hrs: Date Time Temp Pulse Resp B/P (MAP) Pulse Ox O2 Delivery O2 Flow Rate FiO2 10/16/17 06:35 36.6 70 18 136/75 72 121/78 Meds Administered Last 24 Hrs: Meds Administered (Past 24Hrs) Medications (Trade) Dose Ordered Sig/Ruba Route Start Time Stop Time Status Last Admin Dose Admin Aspirin (Ecotrin Tab) 81 mg DAILY PO 10/15/17 09:00 11/14/17 08:59 10/16/17 08:40 81 MG Losartan Potassium (coZAAR TAB) 25 mg DAILY PO 10/15/17 09:00 11/14/17 08:59 10/16/17 08:40 25 MG Multivitamins/ Minerals (Multivitamin W/ Minerals Tab) 1 tab DAILY PO 10/15/17 09:00 11/14/17 08:59 10/16/17 08:40 1 TAB Simethicone (Mylicon Chew Tab) 160 mg TIDM PO 10/14/17 17:45 11/13/17 17:59 10/16/17 08:40 160 MG Naproxen (Naprosyn Tab) 250 mg BID PO 10/14/17 21:00 10/15/17 08:18 DC 10/14/17 21:33 250 MG Polyethylene (Miralax Powder Packet) 17 gm DAILY PRN PO 10/14/17 14:30 11/13/17 14:29 10/15/17 17:49 17 GM Alprazolam (Xanax Tab) 0.25 mg HS PO 10/14/17 22:00 11/13/17 14:29 10/15/17 21:27 0.25 MG Sertraline HCl (Zoloft Tab) 25 mg QAM PO 10/15/17 09:00 10/15/17 13:35 DC 10/15/17 07:56 25 MG Sertraline HCl (Zoloft Tab) 50 mg QAM PO 10/16/17 09:00 11/14/17 08:59 10/16/17 08:40 50 MG Problem Qualifiers (1) Depression: Depression Type: major depressive disorder Major depression recurrence: single episode Active/Remission status: currently active Major depression episode severity: moderate Qualified Codes: F32.1 - Major depressive disorder , single episode, moderate
[2017-10-16] MEDS ORDERED: POLYETHYLENE (MIRALAX) 17 GM PACK PO SCH (17:30)
[2017-10-16] MEDS ORDERED: ALPRAZOLAM 0.25 MG TAB PO SCH (21:00)
[2017-10-17 07:05] VITALS: BP_SYST 122; BP_SYST 133; BP_DIAS 75; BP_DIAS 80; PULSE 69; PULSE 70; TEMP 36.4
[2017-10-17] MEDS: CEROVITE ADV FORMULA TAB PO SCH (08:53)
[2017-10-17] MEDS: SIMETHICONE 80 MG CHEW PO SCH (08:53)
[2017-10-17] MEDS: LOSARTAN POTASSIUM 25 MG TAB PO SCH (08:53)
[2017-10-17] MEDS: ASPIRIN 81 MG ECTAB PO SCH (08:53)
[2017-10-17] MEDS: SERTRALINE HCL 50 MG TAB PO SCH (08:53)
[2017-10-17] MEDS ORDERED: ZLF50 PO (09:11)
[2017-10-17] MEDS ORDERED: XNX25 PO (09:11)
--- NOTE | 2017-10-17 09:18 | Discharge Instructions ---
Discharge Information Report Includes Report will include the: Discharge Instructions & Summary Admission Admission Date / Time: October 14, 2017 at 13:03 Reason for Admission: Anxiety Discharge Discharge Diagnosis / Problem: generalized anxiety disorder Condition at Discharge: Good Discharge Goals Goal(s): Improve function, Improve disease control Activity Recommendations Activity Limitations: resume your previous activity . Instructions / Follow-Up Instructions / Follow-Up . SPECIAL CARE INSTRUCTIONS: 1. Follow through with your scheduled aftercare appointments. If unable to keep an appointment, please call to reschedule. 2. Take your medication only as prescribed. Medication should not be changed or stopped without the approval of your doctor. In the event of worsening symptoms or concerns about side effects, contact your doctor immediately. 3. Utilize new healthy coping skills, anger management skills, and stress management skills learned during your hospitalization. Journal feelings and process them with a support person. Identify stressors or situations that may result in relapse, deterioration or inappropriate behaviors and develop a plan to deal with those issues. 4. If your coping skills are ineffective and you are in crisis, contact your outpatient providers for direction. If unable to reach your providers, please call the CAN HELP LINE AT or go to the closest Emergency Room. 5. Avoid alcohol and un-prescribed drugs. 6. You have been provided with the Mental Health Advance Directives Pamphlet for your review. AFTERCARE APPOINTMENTS: * Please call your insurance company prior to your scheduled appointment to confirm your aftercare providers are covered. Take your insurance information to your appointments. . Discharge / Aftercare Planning Primary Care Physician: Name: Dr. Felix Date of Appointment: Oct 23, 2017 Time of Appointment: 1:30 Appointment Notes: [address] [place] [id number] Psychiatrist: Name: Salbador shahid credit card , ID , and insurance card Date of Appointment: October 22, 2017 Time of Appointment: 12:30 pm Appointment Notes: [address] [facility] [address], [place] [address] Therapist: Name Of Therapist: Dr. Eugene Pappas Date of Appointment: October 21, 2017 Time of Appointment: 2:00 pm Appointment Comments: [address] [place], [place] [id number]. [address], [place] [address] Stock Plan Administrator: Name: none . Follow-Up Care Plan for Follow-Up Care: CONTENTS OF TRANSITION OF CARE RECORD REVIEWED WITH PATIENT. Current Hospital Diet Patient's current hospital diet: Regular Diet Discharge Diet Recommended Diet: Regular Diet Procedures Procedures Performed: No Pending Studies Pending Studies at Discharge: No Medical Emergencies . Who to Call and When: Medical Emergencies: For questions or emergencies related to your hospital stay, please contact the Inpatient Behavioral Health Unit at [phone]. A billing clinician is on-call 15/12 for the Behavioral Health Unit for emergencies At any time you feel your situation is an emergency, you may also call 911 immediately. . Non-Emergent Contact Non-Emergency issues call your: Primary Care Provider, Psychiatrist Call Non-Emergent contact if: you have any medication questions Advance Directives Existing Advance Directive: No Do You Have an Existing Mental: No Existing Living Will: No Existing Power of Home Health Cna: No Advance Directives Info Given: To Pt/S.O. Advance Directives Reason: Declines as Mental Health Visit. Discharge Summary Admission HPI Per the Admitting provider: Patient presented to the emergency room today with his daughter on referral from his PCPs office for thoughts of harming others. He has a history of anxiety for which she was successfully treated with sertraline for 5 years, but stopped taking the medication several months ago, and developed "shakes" in June. He also became obsessed with his bowel movements, was revolving his entire day around whether or not he had a bowel movement, and was checking repeatedly to see if he flushed the toilet and turn to the faucets off. In July, he was started on fluoxetine and alprazolam, and symptoms improved. His fluoxetine dose was increased at some point, and he became more agitated. He reported a vision of himself standing next to his grandchildren holding a knife , and although he stated he did not want to hurt them, he was afraid that they would get hurt. He called his PCP who instructed him to go to the emergency room. Spoke to Dr. Chari Collins, his PCP who treats his anxiety. He reports the patient was on sertraline for years, and was 25mg daily when he started seeing him in 2012. He reports obsessive thoughts, often around his urinary frequency and bowel movements. He went off the SSRI but his then noticed symptoms, so he was started on fluoxetine 10mg. On 10/01/17 he reported increased obsessions with his bowel movements, so the dose was increased to 20mg daily. He was also prescribing alprazolam 0.25mg bid prn. The patient reports he has had long standing anxiety, but it worsened in Jun. when he started having constipation and became more worried about symptoms. This past Thursday, he had intrusive thoughts of himself standing beside his grandchildren while holding a knife, and worried that he would harm them. He denies any intent or desire to harm them, but felt "panicked" about it. Denies VH, "it was just a thought." He stayed up all night worrying about it. He told his the next day, and felt better. The next morning, he woke up and "thought I had a screwdriver in my hand," even though he didn't. Again denies that he had a hallucination, but just "saw it in my mind." This caused him to feel very scared, and they called his family doctor. He notes his family was all supposed to come into town this weekend for the holiday, and he was afraid to have his grandkids in the house with these thoughts. He reports anxiety for several years, for which he was initially on sertraline, which helped. He says his PCP switched him from sertraline to fluoxetine, and isn't sure why as he thinks the sertraline was working and his anxiety was well controlled. He says he's always worried a lot, about everything, finds it difficult to control the worry, and it affects his daily life. He endorsing repeated checking everything in the house, including lights, stove, faucets. He will shut things off several times to ensure that it's really off. He says he has prostate cancer 20+ years ago, which has caused urinary frequency, so goes to the bathroom frequently. He has been very focused on his bowel movements, and says his "whole day is ruined if I didn't have a bowel movement." He has been isolating at home, and relies heavily on his , feeling very anxious being away from her. He reports episodes of high anxiety and "shakiness," but denies other panic symptoms. Describes mood as anxious, "not a very nice person to be around." Has been more irritable and sad, denies tearfulness, SI, and anhedonia. Energy has been low, appetite is decreased with at least a 10lb weight loss in the past 3 months, and he feels easily fatigued. Denies hallucinations, jose maria, paranoia. Does report memory has been worse over the past 3 months, not able to recall names. He is worried that the fluoxetine is causing side effects, as he and his read about it. He has been taking Xanax 0.25mg bid since , and initially thought it helped, but anxiety then worsened over the past few weeks, despite increasing his fluoxetine dose. Exacerbating factors include worsening physical health, as hasn't been able to go to the gym regularly for the past two months due to spinal stenosis and chronic rib and back pain. He enjoys watching sports on TV, and time with family. Hospital Course (1) Anxiety 10/14 -meets criteria for generalized anxiety disorder. Discussed his diagnoses with him, and the treatment options. Feels symptoms are much better controlled on sertraline, and would like to switch back. Discontinue fluoxetine, and start sertraline 25 mg daily tomorrow. May benefit from an increase to 50 mg daily, as he had never been on doses over 25 mg in the past. -discussed risks of long-term benzodiazepine use, including cognitive impairment (which he is already reporting), increased fall risk, development of tolerance, and AMS. Ideally these would be used only short-term, and only when needed. He feels it is helpful for bedtime, so will schedule alprazolam 0.25 mg nightly, and ordered the second dose daily as needed. He has been advised not to mix this with alcohol. Would recommend it be tapered off as soon as his symptoms stabilized. -Involve the patient in groups and therapy on the unit, work on healthy coping skills, behavioral techniques for managing anxiety, and a discharge safety plan. -Family meeting with and daughter. Review plan to secure guns. -Refer for outpatient psychiatric care. Care coordinated with his PCP, Dr. Felix, today. 10/15 - Increase sertraline to 50mg daily for tomorrow. Continue current dose of alprazolam - if doesn't need daytime prn dose, would discontinue at discharge. - Refer for OP psychiatric f/u and therapy. - Family meeting with and daughter. - Work on safety plan and coping skills. 10/06 - Sertraline 50mg; titrating as needed - Alprazolam .25 qHS; has not required daily prn of same dose - Family session today; encourage work on safety plan in preparation for discharge in the next few days - Will be seeing Dr. Marcelo for psychiatric med management and Sami Pappas for OP therapy sessions with focus on treatment of OCD. (2) OCD (obsessive compulsive disorder) 10/14 -switch from fluoxetine to sertraline. Introduced the role of therapy and treatment of OCD, and refer for outpatient therapy 10/15 - See above. 10/16 - sertraline at 50mg qAM (3) Depression 10/14 - Starting to develop depressive symptoms in the context of worsening anxiety. Encourage group attendance and participation Risk Factors Assessment Male: Yes : Yes /single/: No Higher / Fall in social status: No Access to guns: Yes Health problems: Yes Mental Health Diagnoses: Yes Substance use disorders: No Previous attempt: No Family history of suicide: No Previous psychiatric stay: No Hopelessness: No Smoker: No Protective Factors Assessment Evangelical beliefs: Yes : Yes Responsible for young children: No Employed: No Stable relationships: Yes Supportive family: Yes Good rapport with provider: Yes Day of Discharge Assessment Patient had a successful meeting with and daughter yesterday and is tolerating medication. Verbalizes safety plan. Reconfirms no suicidal thoughts since med change. He is aware of fall risk with benzos in patients over 65 and dose tapered to hs only, recommend prn upon discharge. The patient presented as alert and cooperative. The patient was casually dressed and groomed. Eye contact was fair. No psychomotor restlessness or agitation was noted. Speech was normal in rate, rhythm, and volume. Affect was mood congruent. The patients mood appeared euthymic. Thought processes were clear, coherent and goal directed without evidence of loose associations or flight of ideas. Thought content/perception was reality based without delusions. The patient denied suicidal and homicidal ideation. The patient denied hallucinations and did not appear to be responding to internal stimuli. Cognition was grossly intact with orientation to person, place and time. Laboratory Test 10/14/17 10:29 10/14/17 11:09 White Blood Count 7.10 Red Blood Count 4.37 Hemoglobin 14.8 Hematocrit 40.7 Mean Corpuscular Volume 93.1 Mean Corpuscular Hemoglobin 33.9 Mean Corpuscular Hemoglobin Concent 36.4 Platelet Count 184 Mean Platelet Volume 8.5 Neutrophils (%) (Auto) 75.6 Lymphocytes (%) (Auto) 13.4 Monocytes (%) (Auto) 9.9 Eosinophils (%) (Auto) 0.7 Basophils (%) (Auto) 0.1 Neutrophils # (Auto) 5.37 Lymphocytes # (Auto) 0.95 Monocytes # (Auto) 0.70 Eosinophils # (Auto) 0.05 Basophils # (Auto) 0.01 RDW Standard Deviation 43.9 RDW Coefficient of Variation 12.8 Immature Granulocyte % (Auto) 0.3 Immature Granulocyte # (Auto) 0.02 Sodium Level 131 Potassium Level 4.2 Chloride Level 97 Carbon Dioxide Level 26 Anion Gap 8.0 Blood Urea Nitrogen 11 Creatinine 0.88 Est Creatinine Clear Calc Drug Dose 67.7 Estimated GFR () 92.1 Estimated GFR (Non- 79.4 BUN/Creatinine Ratio 12.9 Random Glucose 99 Calcium Level 8.4 Total Bilirubin 1.5 Direct Bilirubin 0.4 Aspartate Amino Transferase (AST) 24 Alanine Aminotransferase (ALT) 23 Alkaline Phosphatase 75 Total Protein 7.5 Albumin 3.8 Thyroid Stimulating Hormone (TSH) 1.530 Salicylates Level < 1.7 Acetaminophen Level < 2 Ethyl Alcohol mg/dL < 3.0 Urine Color YELLOW Urine Appearance CLEAR Urine pH 7.5 Urine Specific [place] 1.017 Urine Protein NEG Urine Glucose (UA) NEG Urine Ketones 1+ Urine Occult Blood NEG Urine Nitrite NEG Urine Bilirubin NEG Urine Urobilinogen NEG Urine Leukocyte Esterase NEG Urine Opiates Screen NEG Urine Methadone, Qualitative NEG Urine Barbiturates NEG Urine Phencyclidine (PCP) Level NEG Ur Amphetamine/Methamphetamine NEG MDMA (Ecstasy) Screen NEG Urine Hydroxyalprazolam Confirm 49 Urine Benzodiazepines Screen POS 7-Amino Clonazepam Level NEGATIVE Urine Nordiazepam Confirmation NEGATIVE Urine Hydroxyethylflurazepam Level NEGATIVE Urine Lorazepam (GC/MS) NEGATIVE Urine Oxazepam Confirm (GC/MS) NEGATIVE Urine Temazepam Confirmation NEGATIVE Urine Hydroxytriazolam Confirmation NEGATIVE Urine Hydroxymidazolam Confirmation NEGATIVE Urine Cocaine Metabolite NEG Urine Marijuana (THC) NEG Total Time Total Time Spent (min): Greater than 30 minutes Total Time Included: examination of the patient, medication reconciliation Tobacco Cessation at Discharge Smoking Status: Former Smoker FDA approved Prescription: non-smoker Problem Qualifiers (1) Depression: Depression Type: major depressive disorder Major depression recurrence: single episode Active/Remission status: currently active Major depression episode severity: moderate Qualified Codes: F32.1 - Major depressive disorder , single episode, moderate
== END 2017-10-17 10:10 | disposition home or self-care (01) | DRG 885 ==
LOC: C.EDB 09:38 → C.MHU 13:03
PROVIDERS: ADMIT Psychiatry & Neurology Psychiatry; ATTEND Psychiatry & Neurology Psychiatry
DX: F32.1 Major depressive disorder, single episode, moderate (principal); F41.1 Generalized anxiety disorder; F42.9 Obsessive-compulsive disorder, unspecified; M48.00 Spinal stenosis, site unspecified; Z79.899 Other long term (current) drug therapy; Z79.82 Long term (current) use of aspirin; Z79.1 Long term (current) use of non-steroidal anti-inflammatories (NSAID); Z85.46 Personal history of malignant neoplasm of prostate; Z87.891 Personal history of nicotine dependence; Z81.8 Family history of other mental and behavioral disorders; Z81.1 Family history of alcohol abuse and dependence

== ENCOUNTER 2021-02-14 09:45 | Inpatient (IN) ==
[2021-02-14] MEDS ORDERED: SODIUM CHLORIDE 0.9% 500 ML IV SCH (10:15)
--- NOTE | 2021-02-14 10:19 | Emergency Department Note ---
History of Present Illness General Chief complaint: Dizziness Time Seen by Provider: 02/14/21 10:01 Source: patient Mode of arrival: ambulatory Limitations: no limitations History of Present Illness Maximum Pain Intensity: 3 This patient is an 85-year-old male who comes in after feeling weak while he was in the shower. This happened about an hour ago he was feeling fine prior he said he felt like he was weak in both of his legs he felt dizzy that he describes as more of a weakness rather than a vertigo or spinning he lowered himself down there is no fall or injury there is no loss of consciousness. He says he feels back to normal now just a little tired. He had no headache neck pain or stiffness no difficulty speaking or swallowing no change in vision. Denies chest pain shortness of breath or palpitations. No blood or melena stool. No dysuria or hematuria. No abdominal or back pain he is some chronic left hip pain. Denies that he is on any blood thinners. Denies previous cardiac disease Home Medications Medication Instructions Recorded Confirmed Type losartan 25 mg tablet 25 mg PO QAM 02/17/18 02/14/21 History ndhnerap-skz-ndmoo acid 300 1 tab PO QAM 02/17/18 02/14/21 History mcg-lycopene 600 mcg-lutein 300 mcg tablet (Centrum Silver Men) polyethylene glycol 3350 17 1 dose PO QPM 02/17/18 02/14/21 History gram/dose oral powder (Miralax) ibuprofen 200 mg tablet (Advil) 200 mg PO UD PRN 08/10/20 02/14/21 History aspirin 81 mg tablet,delayed 81 mg PO QAM 02/07/21 02/14/21 History release betamethasone dipropionate 0.05 % 1 applic TOPICAL BID PRN 02/07/21 02/14/21 History topical cream vit C-vit Z-[id number]-vofx ox-lutein 1 cap PO BID 02/07/21 02/14/21 History 226 mg-200 unit-5 mg-0.8 mg capsule (PreserVision Lutein) buspirone 5 mg tablet 2.5 mg PO BID 02/14/21 02/14/21 History donepezil 5 mg tablet 5 mg PO PM 02/14/21 02/14/21 History sertraline 100 mg tablet 100 mg PO QAM 02/14/21 02/14/21 History sertraline 25 mg tablet 25 mg PO QAM 02/14/21 02/14/21 History Allergies Allergy/AdvReac Type Severity Reaction Status Date / Time citalopram Allergy Unknown Unknown Verified 02/14/21 11:48 Past Med/Surg History Medical History (Updated 02/14/21 @ 16:15 by Steven Sotelo MD) Anxiety Arthritis Constipation Depression Eczema Hiatal hernia DX 30 YR AGO History of prostate cancer HX 1996 PROSTATECTOMY, NO CHEMO/NO RADIATION Hypertension Otosclerosis Overactive bladder Spinal stenosis B/L LE NEUROPATHY Urinary incontinence DEPENDS Urinary incontinence Weight loss 20 POUNDS OVER LAST 2 YRS/HAS UPCOMING APPOINTMENT WITH NEUROLOGY SEPTEMBER 2020 ...? [facility] Surgical History History of ankle surgery LEFT History of colonoscopy History of ear surgery L (WITH METAL IMPLANT) 2/2 OTOSCLEROSIS History of hernia repair History of inguinal hernia repair History of right cataract extraction Hx of prostatectomy Hx of tonsillectomy Family History Mother Family history of diabetes mellitus Hypertension Diabetes Sister Family history of diabetes mellitus Diabetes Anxiety Father Pancreatic cancer Brother No problems noted. Sister Family history of diabetes mellitus Grandmother (Maternal) Diabetes Grandmother (Paternal) Mental illness in member of household Social History Smoking Status: Never smoker Second Hand Exposure: No; Hx Alcohol Use: Yes (HX OF, NONE NOW) Alcohol type: hard liquor Hx Substance Use: No Preferred Language: Indonesian Communication Ability: Effective Relationship Assoc Required: No Beliefs That Will Affect Care: None marital status: Current Living Situation: Spouse current occupational status: retired Feels Safe at Home: Yes Assistive Devices: Glasses, Hearing Aid - Bilateral and Walker Review of Systems A total of 10 systems reviewed and were otherwise negative Physical Exam Vital Signs Vital Signs - 24 hr 02/14/21 09:47 02/14/21 09:49 02/14/21 10:31 Temperature 36.5 C Temperature Source Oral Pulse Rate - Lying Pulse Rate - Sitting Pulse Rate - Standing Pulse Rate 60 58 L 68 Pulse Rate [Apical] Pulse Rate from SpO2 Sensor Pulse Rhythm Regular Pulse Strength Normal Respiratory Rate 22 20 24 Respiratory Effort / Characteristics Non-Labored Spontaneous Respiratory Depth Normal Respiratory Pattern Regular Blood Pressure - Lying Blood Pressure - Sitting Blood Pressure- Standing Blood Pressure 135/73 135/73 133/75 Blood Pressure [Right Arm] Blood Pressure Mean 93 93 94 Blood Pressure Mean [Right Arm] Blood Pressure Position Sitting Pulse Oximetry 97 Oxygen Delivery Method Room Air Sepsis Recent Fever Within 48 Hours No Sepsis New/Unexplained Change in Mental Status No Sepsis Action Taken by Nursing No Action Required 02/14/21 10:35 02/14/21 11:12 02/14/21 11:26 Temperature Temperature Source Pulse Rate - Lying 63 Pulse Rate - Sitting 64 Pulse Rate - Standing 55 L Pulse Rate 58 L 63 Pulse Rate [Apical] 57 L Pulse Rate from SpO2 Sensor 62 Pulse Rhythm Pulse Strength Respiratory Rate 20 17 Respiratory Effort / Characteristics Non-Labored Spontaneous Respiratory Depth Normal Respiratory Pattern Regular Blood Pressure - Lying 133/75 Blood Pressure - Sitting 133/84 Blood Pressure- Standing 104/68 Blood Pressure 144/85 H Blood Pressure [Right Arm] 104/68 Blood Pressure Mean 104 Blood Pressure Mean [Right Arm] 80 Blood Pressure Position Pulse Oximetry 98 98 Oxygen Delivery Method Room Air Sepsis Recent Fever Within 48 Hours Sepsis New/Unexplained Change in Mental Status Sepsis Action Taken by Nursing 02/14/21 11:30 02/14/21 12:00 02/14/21 12:30 Temperature Temperature Source Pulse Rate - Lying Pulse Rate - Sitting Pulse Rate - Standing Pulse Rate 62 55 L 60 Pulse Rate [Apical] Pulse Rate from SpO2 Sensor 63 56 L 60 Pulse Rhythm Pulse Strength Respiratory Rate 18 16 17 Respiratory Effort / Characteristics Respiratory Depth Respiratory Pattern Blood Pressure - Lying Blood Pressure - Sitting Blood Pressure- Standing Blood Pressure 134/79 139/77 134/74 Blood Pressure [Right Arm] Blood Pressure Mean 97 97 94 Blood Pressure Mean [Right Arm] Blood Pressure Position Pulse Oximetry 98 94 98 Oxygen Delivery Method Sepsis Recent Fever Within 48 Hours Sepsis New/Unexplained Change in Mental Status Sepsis Action Taken by Nursing 02/14/21 13:00 02/14/21 13:30 02/14/21 14:00 Temperature Temperature Source Pulse Rate - Lying Pulse Rate - Sitting Pulse Rate - Standing Pulse Rate 62 69 65 Pulse Rate [Apical] Pulse Rate from SpO2 Sensor 62 66 Pulse Rhythm Pulse Strength Respiratory Rate 18 19 19 Respiratory Effort / Characteristics Respiratory Depth Respiratory Pattern Blood Pressure - Lying Blood Pressure - Sitting Blood Pressure- Standing Blood Pressure 135/78 138/78 134/76 Blood Pressure [Right Arm] Blood Pressure Mean 97 98 95 Blood Pressure Mean [Right Arm] Blood Pressure Position Pulse Oximetry 98 96 99 Oxygen Delivery Method Sepsis Recent Fever Within 48 Hours Sepsis New/Unexplained Change in Mental Status Sepsis Action Taken by Nursing 02/14/21 14:30 02/14/21 15:00 02/14/21 15:30 Temperature Temperature Source Pulse Rate - Lying Pulse Rate - Sitting Pulse Rate - Standing Pulse Rate 65 69 69 Pulse Rate [Apical] Pulse Rate from SpO2 Sensor 65 69 69 Pulse Rhythm Pulse Strength Respiratory Rate 19 20 21 Respiratory Effort / Characteristics Respiratory Depth Respiratory Pattern Blood Pressure - Lying Blood Pressure - Sitting Blood Pressure- Standing Blood Pressure 135/75 146/76 H 127/77 Blood Pressure [Right Arm] Blood Pressure Mean 95 99 93 Blood Pressure Mean [Right Arm] Blood Pressure Position Pulse Oximetry 100 99 99 Oxygen Delivery Method Sepsis Recent Fever Within 48 Hours Sepsis New/Unexplained Change in Mental Status Sepsis Action Taken by Nursing 02/14/21 16:00 Temperature Temperature Source Pulse Rate - Lying Pulse Rate - Sitting Pulse Rate - Standing Pulse Rate 69 Pulse Rate [Apical] Pulse Rate from SpO2 Sensor 70 Pulse Rhythm Pulse Strength Respiratory Rate 17 Respiratory Effort / Characteristics Respiratory Depth Respiratory Pattern Blood Pressure - Lying Blood Pressure - Sitting Blood Pressure- Standing Blood Pressure 116/70 Blood Pressure [Right Arm] Blood Pressure Mean 85 Blood Pressure Mean [Right Arm] Blood Pressure Position Pulse Oximetry 98 Oxygen Delivery Method Sepsis Recent Fever Within 48 Hours Sepsis New/Unexplained Change in Mental Status Sepsis Action Taken by Nursing General: Well developed well nourished older male who appears in no acute distress, breathing comfortably on room air. Normal speech. Alert and orient x3 answers all questions appropriately HEENT: Normal cephalic atraumatic. Pupils are equal round and reactive to light. Extraocular movements are intact. Oropharynx is pink with moist mucous membranes. No swelling of the mouth lips or tongue. Neck: Supple with a midline trachea. No meningeal signs or stiffness, no JVD or bruits. No Stridor. Chest: Clear to auscultation bilaterally. No wheezes or rhonchi. No increased work of breathing. Heart: Regular rate and rhythm without murmurs or gallops. Abdomen: Soft nontender, nondistended without rebound guarding or rigidity. Extremities: No cyanosis clubbing or edema. No calf tenderness or assymetry Spine/Back. Non tender to palpation. No CVA tenderness Skin: Good turgor without rashes. Neurologic exam: Cranial nerves two through 12 are intact. Motor and sensation are intact and symmetrical throughout. No tremor. Course Administered Medications Discontinued Medications Sodium Chloride (Nss) 500 mls @ 999 mls/hr IV .Q31M JAMES Stop: 02/14/21 10:45 Last Infusion: 02/14/21 11:11 Dose: 0 mls/hr Documented by: [id number] Admin: 02/14/21 10:38 Dose: 999 mls/hr Documented by: [id number] Medical Decision Making Differential Diagnosis Syncope, near syncope, electrolyte or metabolic abnormality, arrhythmia, central neurologic process, infection, anemia Medical Records Attestation: I reviewed the patient's medical records. Home Medications Current Medication List: was personally reviewed by me Laboratory Data Attestation: I reviewed the patient's lab results. Result diagrams: 02/14/21 10:27 02/14/21 10:27 Lab Results 02/14/21 02/14/21 02/14/21 Range/Units 10:05 10:27 10:27 WBC 4.91 (4.8-10.8) K/uL RBC 4.29 L (4.7-6.1) M/uL Hgb 13.6 L (14.0-18.0) g/dL Hct 39.2 L (42-52) % MCV 91.4 (80-100) fL MCH 31.7 (25-34) pg MCHC 34.7 (32-36) g/dL RDW Std Deviation 46.3 (36.4-46.3) fL RDW Coeff of Bambi 14.0 (11.5-14.5) % Plt Count 165 (130-400) K/uL MPV 8.7 (7.4-10.4) fL Immature Gran % (Auto) 0.2 % Neut % (Auto) 77.6 % Lymph % (Auto) 14.9 % Johnson % (Auto) 5.7 % Eos % (Auto) 1.4 % Baso % (Auto) 0.2 % Neut # (Auto) 3.81 (1.4-6.5) K/uL Lymph # (Auto) 0.73 L (1.2-3.4) K/uL Johnson # (Auto) 0.28 (0.11-0.59) K/uL Eos # (Auto) 0.07 (0-0.5) K/uL Baso # (Auto) 0.01 (0-0.2) K/uL Immature Gran # (Auto) 0.01 (0.00-0.02) K/uL PT 11.2 (9.0-12.0) Seconds INR 1.1 (0.9-1.1) APTT 30.4 (21.0-31.0) Seconds PTT Ratio 1.2 Sodium (136-145) mmol/L Potassium (3.5-5.1) mmol/L Chloride (98-107) mmol/L Carbon Dioxide (21-32) mmol/L Anion Gap (3-11) BUN (7-18) mg/dl Creatinine (0.6-1.4) mg/dl Est Cr Clr Drug Dosing ml/min Est GFR ( Amer) ml/min Est GFR (Non-Af Amer) ml/min BUN/Creatinine Ratio (10-20) Glucose (70-99) mg/dl POC Glucose 93 (70-99) mg/dl Calcium (8.5-10.1) mg/dl Total Bilirubin (0.2-1) mg/dl AST (15-37) U/L ALT (12-78) U/L Alkaline Phosphatase (45-117) U/L Troponin I (0-0.045) ng/ml Total Protein (6.4-8.2) gm/dl Albumin (3.4-5.0) gm/dl Globulin (2.5-4.0) gm/dl Albumin/Globulin Ratio (0.9-2) Urine Color Urine Appearance (Clear) Urine pH (4.5-7.5) Ur Specific [place] (1.000-1.030) Urine Protein (Negative) Urine Glucose (UA) (Negative) Urine Ketones (Negative) Urine Blood (Negative) Urine Nitrite (Negative) Urine Bilirubin (Negative) Urine Urobilinogen (Negative) Ur Leukocyte Esterase (Negative) COVID-19 Eval Order SARS-CoV-2 (PCR) (Negative) 02/14/21 02/14/21 02/14/21 Range/Units 10:27 11:24 11:24 WBC (4.8-10.8) K/uL RBC (4.7-6.1) M/uL Hgb (14.0-18.0) g/dL Hct (42-52) % MCV (80-100) fL MCH (25-34) pg MCHC (32-36) g/dL RDW Std Deviation (36.4-46.3) fL RDW Coeff of Bambi (11.5-14.5) % Plt Count (130-400) K/uL MPV (7.4-10.4) fL Immature Gran % (Auto) % Neut % (Auto) % Lymph % (Auto) % Johnson % (Auto) % Eos % (Auto) % Baso % (Auto) % Neut # (Auto) (1.4-6.5) K/uL Lymph # (Auto) (1.2-3.4) K/uL Johnson # (Auto) (0.11-0.59) K/uL Eos # (Auto) (0-0.5) K/uL Baso # (Auto) (0-0.2) K/uL Immature Gran # (Auto) (0.00-0.02) K/uL PT (9.0-12.0) Seconds INR (0.9-1.1) APTT (21.0-31.0) Seconds PTT Ratio Sodium 131 L (136-145) mmol/L Potassium 4.2 (3.5-5.1) mmol/L Chloride 99 (98-107) mmol/L Carbon Dioxide 29 (21-32) mmol/L Anion Gap 3.0 (3-11) BUN 12 (7-18) mg/dl Creatinine 0.78 (0.6-1.4) mg/dl Est Cr Clr Drug Dosing 65.8 ml/min Est GFR ( Amer) 94.7 ml/min Est GFR (Non-Af Amer) 81.7 ml/min BUN/Creatinine Ratio 14.9 (10-20) Glucose 113 H (70-99) mg/dl POC Glucose (70-99) mg/dl Calcium 9.0 (8.5-10.1) mg/dl Total Bilirubin 1.1 H (0.2-1) mg/dl AST 24 (15-37) U/L ALT 20 (12-78) U/L Alkaline Phosphatase 101 (45-117) U/L Troponin I < 0.015 (0-0.045) ng/ml Total Protein 7.6 (6.4-8.2) gm/dl Albumin 3.8 (3.4-5.0) gm/dl Globulin 3.8 (2.5-4.0) gm/dl Albumin/Globulin Ratio 1.0 (0.9-2) Urine Color Urine Appearance (Clear) Urine pH (4.5-7.5) Ur Specific [place] (1.000-1.030) Urine Protein (Negative) Urine Glucose (UA) (Negative) Urine Ketones (Negative) Urine Blood (Negative) Urine Nitrite (Negative) Urine Bilirubin (Negative) Urine Urobilinogen (Negative) Ur Leukocyte Esterase (Negative) COVID-19 Eval Order Covid19 at [facility] SARS-CoV-2 (PCR) NEGATIVE (Negative) 02/14/21 Range/Units 14:01 WBC (4.8-10.8) K/uL RBC (4.7-6.1) M/uL Hgb (14.0-18.0) g/dL Hct (42-52) % MCV (80-100) fL MCH (25-34) pg MCHC (32-36) g/dL RDW Std Deviation (36.4-46.3) fL RDW Coeff of Bambi (11.5-14.5) % Plt Count (130-400) K/uL MPV (7.4-10.4) fL Immature Gran % (Auto) % Neut % (Auto) % Lymph % (Auto) % Johnson % (Auto) % Eos % (Auto) % Baso % (Auto) % Neut # (Auto) (1.4-6.5) K/uL Lymph # (Auto) (1.2-3.4) K/uL Johnson # (Auto) (0.11-0.59) K/uL Eos # (Auto) (0-0.5) K/uL Baso # (Auto) (0-0.2) K/uL Immature Gran # (Auto) (0.00-0.02) K/uL PT (9.0-12.0) Seconds INR (0.9-1.1) APTT (21.0-31.0) Seconds PTT Ratio Sodium (136-145) mmol/L Potassium (3.5-5.1) mmol/L Chloride (98-107) mmol/L Carbon Dioxide (21-32) mmol/L Anion Gap (3-11) BUN (7-18) mg/dl Creatinine (0.6-1.4) mg/dl Est Cr Clr Drug Dosing ml/min Est GFR ( Amer) ml/min Est GFR (Non-Af Amer) ml/min BUN/Creatinine Ratio (10-20) Glucose (70-99) mg/dl POC Glucose (70-99) mg/dl Calcium (8.5-10.1) mg/dl Total Bilirubin (0.2-1) mg/dl AST (15-37) U/L ALT (12-78) U/L Alkaline Phosphatase (45-117) U/L Troponin I (0-0.045) ng/ml Total Protein (6.4-8.2) gm/dl Albumin (3.4-5.0) gm/dl Globulin (2.5-4.0) gm/dl Albumin/Globulin Ratio (0.9-2) Urine Color Yellow Urine Appearance Clear (Clear) Urine pH 8.0 H (4.5-7.5) Ur Specific [place] 1.007 (1.000-1.030) Urine Protein Negative (Negative) Urine Glucose (UA) Negative (Negative) Urine Ketones Negative (Negative) Urine Blood Negative (Negative) Urine Nitrite Negative (Negative) Urine Bilirubin Negative (Negative) Urine Urobilinogen Negative (Negative) Ur Leukocyte Esterase Negative (Negative) COVID-19 Eval Order SARS-CoV-2 (PCR) (Negative) Imaging Data Attestation: I personally reviewed and interpreted this imaging study as follows: My Impression: Chest x-raychronic interstitial lung disease without any definite infiltrate pneumonia or pneumothorax Radiologist's Impression: Chest X-Ray 02/14/21 10:15 SINGLE VIEW CHEST CLINICAL HISTORY: Generalized weakness. FINDINGS: An AP, portable, upright chest radiograph is compared to study dated 02/07/2021 and 10 8. The heart is enlarged noting atherosclerotic calcification of the thoracic aorta. Findings suggest chronic interstitial lung disease. Diffuse interstitial thickening is identified. No lobar consolidation or pleural effusion is identified. No pneumothorax is seen. The skeletal structures are osteopenic. The bony thorax is grossly intact. IMPRESSION: 1. Cardiomegaly with findings suggestive of chronic interstitial lung disease. 2. Diffuse coarsening of interstitium could represent superimposed fluid overload or possibly an infectious/inflammatory pneumonitis. Clinical correlation will be required. ACT 112: Negative or not required by law. Electronically signed by: Darrel Rock M.D. 02/14/2021 10:[address] 02/14/21 10:15 CT SCAN OF THE BRAIN WITHOUT IV CONTRAST CLINICAL HISTORY: Generalized weakness. COMPARISON STUDY: CT of the brain dated 02/07/2021. TECHNIQUE: Unenhanced axial CT scan of the brain is performed from the vertex to the skull base. A dose lowering technique was utilized adhering to the principles of ALARA. The patient was scanned twice due to motion artifact. CT DOSE: 1543.34 mGy.cm FINDINGS: Brain parenchyma: There are age-related involutional changes noting mild subcortical and periventricular microangiopathic change. A linear focus of encephalomalacia extends from the right frontal convexity to the right lateral ventricle, likely related to previous ventriculostomy catheter. There is no hemorrhage, mass effect, or evidence of acute territorial ischemia by CT criteria. Huitron-white matter differentiation is preserved. No extra-axial fluid collection is seen. Ventricles, sulci, cisterns: Prominent secondary to involutional change. Intracranial vasculature: There is atherosclerotic calcification of the cavernous carotid and vertebral arteries. Calvarium: There is a right frontal omar hole. No destructive calvarial lesion is identified. Sinuses and mastoids: Trace mucosal thickening is noted in the left maxillary antrum. The remaining visualized paranasal sinuses are clear. The mastoid air cells are well pneumatized. Orbits: The bony orbits are grossly intact. There are bilateral ocular lens implants. IMPRESSION: 1. There is no hemorrhage, mass effect, or evidence of acute territorial ischemia by CT criteria. 2. Chronic and postoperative findings as above. ACT 112: Negative or not required by law. Electronically signed by: Darrel Rock M.D. 02/14/2021 11:08 AM ECG Data Attestation: I personally reviewed and interpreted this ECG as follows: Indication: + weakness Rate (beats per minute): 59 Rhythm: + sinus bradycardia ECG Intervals/blocks: + Right Bundle branch block, + Normal QRS and + Normal AL ECG [place]: + Normal ECG ST segments: + Normal ST segments ECG Findings: no PACs or no PVCs Comparison ECG Date: from (02/07/21) Change: no significant change MDM Narrative This patient comes in after an episode of weakness in the shower. He did not have any syncope he had no focal neurologic deficits he looks well at present. EKG was obtained which shows sinus bradycardia with a right bundle branch block. Multiple blood testing was obtained. he was placed on a desk monitor in the ED. he was given fluid hydration with a normal saline bolus CAT scan of his head was obtained as well as a chest x-ray he was reassessed frequently. CAT scan of his head is unremarkable. Chest x-ray shows findings which are likely chronic. Covid testing was negative. He has no white count or fever to suggest infection. He has no acute electrolyte or metabolic abnormality. Urinalysis does not suggest UTI. 1 we got him up to try to obtain orthostatics he had extreme difficult time standing and was very weak diffusely. I talked his at length. He was seen here last week after having an episode where he was stiff. He has been started on Aricept recently and since last week he has been very weak and they cannot take care of him at home. I did consult the [facility] hospitalist team to see him for admission/observation Continuous cardiac monitoring: Orders placed in EMR for continuous cardiac monitoring. Upon my interpretation he was noted to be in sinus bradycardia with a rate of 60 Impression & Plan Weakness, Lab test negative for COVID-19 virus, Dizziness, Ambulatory dysfunction Discharge Plan Visit Data Chief Complaint: Dizziness ED Provider: Steven Sotelo Discharge Problem: Weakness, Lab test negative for COVID-19 virus, Dizziness, Ambulatory dysfunction Forms Stand Alone Forms: [facility] Prescriptions Prescriptions: No Action losartan 25 mg Tablet 25 mg PO QAM RF: 0 polyethylene glycol 3350 [Miralax] 17 gram/dose Powder 1 dose PO QPM RF: 0 Centrum Silver Men 300-600-300 mcg Tablet 1 tab PO QAM RF: 0 aspirin 81 mg Tablet,Delayed Release (Dr/Ec) 81 mg PO QAM RF: 0 betamethasone dipropionate 0.05 % Cream 1 applic TOPICAL BID PRN (Reason: ECZEMA) RF: 0 PreserVision Lutein 226 mg-200 unit -5 mg-0.8 mg Capsule 1 cap PO BID RF: 0 buspirone 5 mg Tablet 2.5 mg PO BID RF: 0 donepezil 5 mg Tablet 5 mg PO PM RF: 0 sertraline 100 mg Tablet 100 mg PO QAM RF: 0 sertraline 25 mg Tablet 25 mg PO QAM RF: 0 ibuprofen [Advil] 200 mg Tablet 200 mg PO UD PRN (Reason: Pain) RF: 0 Referrals Referrals: Shaun Felix MD [Primary Care Provider] -
[2021-02-14 10:36] LABS: Basophils # (auto) 0.01 K/uL (0-0.2); Basophils % (auto) 0.2 %; Eosinophils # (auto) 0.07 K/uL (0-0.5); Eosinophils % (auto) 1.4 %; Hematocrit (blood only) 39.2 % (42-52); Hemoglobin 13.6 g/dL (14.0-18.0); Immature Granulocytes # (auto) 0.01 K/uL (0.00-0.02); Immature Granulocytes % (auto) 0.2 %; Lymphocytes # (auto) 0.73 K/uL (1.2-3.4); Lymphocytes % (auto) 14.9 %; Mean Corpuscular Hemoglobin 31.7 pg (25-34); Mean Corpuscular Hgb Conc 34.7 g/dL (32-36); Mean Corpuscular Volume 91.4 fL (80-100); Mean Platelet Volume 8.7 fL (7.4-10.4); Monocytes # (auto) 0.28 K/uL (0.11-0.59); Monocytes % (auto) 5.7 %; Neutrophils # (auto) 3.81 K/uL (1.4-6.5); Neutrophils % (auto) 77.6 %; Platelet Count 165 K/uL (130-400); RDW Standard Deviation 46.3 fL (36.4-46.3); Red Blood Count 4.29 M/uL (4.7-6.1); White Blood Count 4.91 K/uL (4.8-10.8)
--- NOTE | 2021-02-14 10:39 | XRay Report ---
SINGLE VIEW CHEST CLINICAL HISTORY: Generalized weakness. FINDINGS: An AP, portable, upright chest radiograph is compared to study dated 02/07/2021 and 10 1 8. The heart is enlarged noting atherosclerotic calcification of the thoracic aorta. Findings suggest ch ronic interstitial lung disease. Diffuse interstitial thickening is identified. No lobar consolidatio n or pleural effusion is identified. No pneumothorax is seen. The skeletal structures are osteopenic. The bony thorax is grossly intact. IMPRESSION: 1. Cardiomegaly with findings suggestive of chronic interstitial lung disease. 2. Diffuse coarsening of interstitium could represent superimposed fluid overload or possibly an infe ctious/inflammatory pneumonitis. Clinical correlation will be required. ACT 112: Negative or not required by law. Electronically signed by: Darrel Rock M.D. 02/14/2021 10:38 AM
[2021-02-14 10:50] LABS: INR 1.1 (0.9-1.1); Partial Thromboplastin Ratio 1.2; Partial Thromboplastin Time 30.4 Seconds (21.0-31.0); Prothrombin Time 11.2 Seconds (9.0-12.0)
[2021-02-14 10:57] LABS: Alanine Aminotransferase 20 U/L (12-78); Albumin Level 3.8 gm/dl (3.4-5.0); Aspartate Aminotransferase 24 U/L (15-37); BUN Creatinine Ratio 14.9 (10-20); Blood Urea Nitrogen 12 mg/dl (7-18); Carbon Dioxide 29 mmol/L (21-32); Chloride 99 mmol/L (98-107); Creatinine Clr Calc Pharmacy 65.8 ml/min; Est GFR (African American) 94.7 ml/min; Est GFR (Non-African American) 81.7 ml/min; Glucose 113 mg/dl (70-99); Potassium 4.2 mmol/L (3.5-5.1); Sodium 131 mmol/L (136-145)
[2021-02-14 11:01] LABS: Alkaline Phosphatase 101 U/L (45-117); Bilirubin,Total 1.1 mg/dl (0.2-1); Globulin 3.8 gm/dl (2.5-4.0); Total Protein 7.6 gm/dl (6.4-8.2); Troponin I < 0.015 ng/ml (0-0.045)
--- NOTE | 2021-02-14 11:09 | CT Scan Report ---
CT SCAN OF THE BRAIN WITHOUT IV CONTRAST CLINICAL HISTORY: Generalized weakness. COMPARISON STUDY: CT of the brain dated 02/07/2021. TECHNIQUE: Unenhanced axial CT scan of the brain is performed from the vertex to the skull base. A do se lowering technique was utilized adhering to the principles of ALARA. The patient was scanned twice due to motion artifact. CT DOSE: 1543.34 mGy.cm FINDINGS: Brain parenchyma: There are age-related involutional changes noting mild subcortical and periventric ular microangiopathic change. A linear focus of encephalomalacia extends from the right frontal conve xity to the right lateral ventricle, likely related to previous ventriculostomy catheter. There is no hemorrhage, mass effect, or evidence of acute territorial ischemia by CT criteria. Huitron-white matter differentiation is preserved. No extra-axial fluid collection is seen. Ventricles, sulci, cisterns: Prominent secondary to involutional change. Intracranial vasculature: There is atherosclerotic calcification of the cavernous carotid and vertebr al arteries. Calvarium: There is a right frontal omar hole. No destructive calvarial lesion is identified. Sinuses and mastoids: Trace mucosal thickening is noted in the left maxillary antrum. The remaining v isualized paranasal sinuses are clear. The mastoid air cells are well pneumatized. Orbits: The bony orbits are grossly intact. There are bilateral ocular lens implants. IMPRESSION: 1. There is no hemorrhage, mass effect, or evidence of acute territorial ischemia by CT criteria. 2. Chronic and postoperative findings as above. ACT 112: Negative or not required by law. Electronically signed by: Darrel Rock M.D. 02/14/2021 11:08 AM
--- NOTE | 2021-02-14 12:10 | History & Physical Report ---
Date of Service February 14, 2021 Assessment & Plan (1) Weakness: Plan: Unclear whether this is progression of his previous existing spinal disease or encephalopathy from UTI has he has had urinary incontinence. Urine culture is pending. Patient also did have a fall in the shower after not eating or drinking for more than 12 hours. He did not take his morning medications. PT OT evaluation checking for metabolic encephalopathy from UTI. He does have some interstitial changes on his chest x-ray which will urge me not to hydrate him at this time. Clinically he looks euvolemic and his BUN/creatinine seem to be stable Patient underwent third endoscopic third ventriculostomy for normal pressure hydrocephalus treatment on December 11, [address] [facility] CT scan on presentation is not significantly comment on any enlargement of ventricles are concerned that his ventriculostomy may not be functioning correctly. The patient does not have a urinary tract infection consideration of neurologic consult to evaluate for worsening of his normal pressure hydrocephalus. (2) Abnormal chest x-ray: Plan: Patient with increased interstitial changes on chest x-ray unknown if chronic patient's did not seem to have any knowledge of having chronic lung disease. Subsequently we will check an echocardiogram he does not sound to be in congestive failure at this time he does not have Covid or other infectious symptoms of pneumonitis but will evaluate for his systolic function given his history of hypertension. (3) Spinal stenosis: Plan: Last imaging I can find is a myelogram from 2005 which showed degenerative changes L2-L5, patient has no radicular signs or symptoms with global weakness he also has no neurological sensory loss. (4) Prostate cancer: Plan: Is by history takes no medications at this time (5) Depression: Plan: Typically sertraline continue (6) Dementia: Plan: Will continue on Aricept (7) Hypertension: Plan: We will continue losartan follow blood pressure checked orthostatics in the morning History of Present Illness Primary Care Provider: Shaun Felix MD 85-year-old male who comes in after feeling weak while he was in the shower. He describes as more of a weakness rather than a vertigo or spinning he lowered himself down there is no fall or injury there was no loss of consciousness. Patient does have some memory impairment. His is present at the bedside and fills in most of the conversation. Reportedly he has been having increasing urinary incontinence at night. He has been progressively weaker since his ER visit approximately a week ago. Patient denied having any chest pain or pressure feelings of palpitations he is back to his normal mental state however his legs are significantly weak and cannot lift them off the bed. His lower extremities show changes of chronic venous stasis he is incontinent of urine in his briefs Allergies Allergy/AdvReac Type Severity Reaction Status Date / Time citalopram Allergy Unknown Unknown Verified 02/14/21 11:48 Home Medications Medication Instructions Recorded Confirmed Type losartan 25 mg tablet 25 mg PO QAM 02/17/18 02/14/21 History qqsxmuab-ezm-ehhws acid 300 1 tab PO QAM 02/17/18 02/14/21 History mcg-lycopene 600 mcg-lutein 300 mcg tablet (Centrum Silver Men) polyethylene glycol 3350 17 1 dose PO QPM 02/17/18 02/14/21 History gram/dose oral powder (Miralax) ibuprofen 200 mg tablet (Advil) 200 mg PO UD PRN 08/10/20 02/14/21 History aspirin 81 mg tablet,delayed 81 mg PO QAM 02/07/21 02/14/21 History release betamethasone dipropionate 0.05 % 1 applic TOPICAL BID PRN 02/07/21 02/14/21 History topical cream vit C-vit B-nphfwe-hpsz ox-lutein 1 cap PO BID 02/07/21 02/14/21 History 226 mg-200 unit-5 mg-0.8 mg capsule (PreserVision Lutein) buspirone 5 mg tablet 2.5 mg PO BID 02/14/21 02/14/21 History donepezil 5 mg tablet 5 mg PO PM 02/14/21 02/14/21 History sertraline 100 mg tablet 100 mg PO QAM 02/14/21 02/14/21 History sertraline 25 mg tablet 25 mg PO QAM 02/14/21 02/14/21 History Past Med/Surg History Medical History (Updated 02/14/21 @ 13:06 by Williams Mann MD) Anxiety Arthritis Constipation Depression Eczema Hiatal hernia DX 30 YR AGO History of prostate cancer HX 1996 PROSTATECTOMY, NO CHEMO/NO RADIATION Hypertension Otosclerosis Overactive bladder Spinal stenosis B/L LE NEUROPATHY Urinary incontinence DEPENDS Urinary incontinence Weight loss 20 POUNDS OVER LAST 2 YRS/HAS UPCOMING APPOINTMENT WITH NEUROLOGY SEPTEMBER 2020 ...? [facility] Surgical History History of ankle surgery LEFT History of colonoscopy History of ear surgery L (WITH METAL IMPLANT) 2/2 OTOSCLEROSIS History of hernia repair History of inguinal hernia repair History of right cataract extraction Hx of prostatectomy Hx of tonsillectomy Family History Mother Family history of diabetes mellitus Hypertension Diabetes Sister Family history of diabetes mellitus Diabetes Anxiety Father Pancreatic cancer Brother No problems noted. Sister Family history of diabetes mellitus Grandmother (Maternal) Diabetes Grandmother (Paternal) Mental illness in member of household Social History Smoking Status: Never smoker Second Hand Exposure: No; Hx Alcohol Use: Yes (HX OF, NONE NOW) Alcohol type: hard liquor Hx Substance Use: No Preferred Language: Croatian Communication Ability: Effective Grade Checker Required: No Beliefs That Will Affect Care: None marital status: Current Living Situation: Spouse current occupational status: retired Feels Safe at Home: Yes Assistive Devices: Glasses, Hearing Aid - Bilateral and Walker Review of Systems Review of Systems: Mild distress and fatigue no headache, no visual changes no speech or swallowing issues no chest pain, pressure or palpitations no shortness of breath, cough or wheezes no abdominal pain, nausea or vomiting, diarrhea or constipation no dysuria, hematuria or frequency no focal joint pain or swelling no back pain, CVA tenderness or radicular pain Venous stasis changes to the skin of his lower extremities no focal signs of numbness or altered sensation is a weakness of the lower extremities no complaints of anxiety or depression.. Physical Exam Physical Exam: The patient appeared well nourished and normally developed. Vital signs as documented. Head exam is normocephalic atraumatic Neck is without JVD, thyromegaly, or carotid bruits. Lungs some very fine rhonchi are heard which clear with deep inspiration Cardiac exam, Rhythm is regular.. No murmurs, rubs or gallops. Abdominal exam reveals normal bowel sounds, soft non tender, no masses Extremities are nonedematous and both pedal pulses are present Neurologic exam is alert and oriented, x2 patient has good sensation of his legs but cannot lift them off the bed. He has pulses intact at dorsalis pedis bilaterally Skin is with in a stasis dermatitis Psychologically is with transferred to mention some depression Results & Data Results & Data ([facility]) Vital Signs (Past 12 Hours) Vital Signs Temp Pulse Pulse Resp BP BP Pulse Ox 02/14/21 11:30 62 18 134/79 98 02/14/21 11:26 63 17 144/85 H 98 02/14/21 11:12 58 L 57 L 20 104/68 98 02/14/21 10:31 68 24 133/75 02/14/21 09:49 97.7 F 58 L 20 135/73 97 02/14/21 09:47 60 22 135/[address] head 02/14/2021 no hemorrhage mass-effect evidence of acute territorial ischemia chronic postoperative findings with a linear focus of encephalomalacia extending from the right frontal convexities to the right lateral ventricle likely related to previous ventriculostomy catheter. Chest x-ray shows cardiomegaly with suggestion of chronic interstitial lung disease with diffuse coarsening of interstitium Covid test is negative ECG Additional Comments: EKG shows sinus bradycardia PG Care Time/CCT Total # of Minutes Spent Total Time Spent with Patient: Total time spent is greater than 50% in coordination of care (as documented) at patient's floor/unit and/or counseling patient: Coding Level of Care Code 00163 Initial Inpt Care Lvl 3 Diagnoses Weakness R53.1 Spinal stenosis M48.00 Prostate cancer C61 Depression F32.9 Dementia F03.90 Hypertension I10 Abnormal chest x-ray R93.89
--- NOTE | 2021-02-14 13:05 | Electrocardiogram Report ---
Test Reason : Blood Pressure : / mmHG Vent. Rate : 059 BPM Atrial Rate : 059 BPM P-R Int : 186 ms QRS Dur : 126 ms QT Int : 452 ms P-R-T Axes : 057 086 -02 degrees QTc Int : 447 ms Sinus bradycardia Right bundle branch block Abnormal ECG When compared with ECG of 07-FEB-2021 12:30, T wave inversion no longer evident in Anterior leads Confirmed by Christiano Alvarez ([id number]) on 02/14/2021 1:04:59 PM Referred By: Confirmed By:Christiano Alvarez
[2021-02-14 14:35] LABS: Appearance Urine Clear (Clear); Bilirubin Urine Negative (Negative); Blood Urine Negative (Negative); Color Urine Yellow; Glucose Urine UA Negative (Negative); Ketones Urine Negative (Negative); Leukocyte Esterase Urine Negative (Negative); Nitrite Urine Negative (Negative); Protein Urine Negative (Negative); Specific Gravity Urine 1.007 (1.000-1.030); Urobilinogen Urine Negative (Negative)
[2021-02-14] MEDS ORDERED: IBUPROFEN 200 MG TAB PO PRN (16:50)
[2021-02-14] MEDS ORDERED: ALUMINUM/MAGNESIUM SUSP 30 ML UDC PO PRN (16:50)
[2021-02-14] MEDS ORDERED: ONDANSETRON INJ 2 MG/ML 2 ML VIAL IV PRN (16:50)
[2021-02-14] MEDS ORDERED: ACETAMINOPHEN 325 MG TAB PO PRN (16:50)
--- NOTE | 2021-02-14 17:28 | XCELERA ---
[id number] \\[id number]_[id number]}___[id number]
[2021-02-14] MEDS: busPIRone 5 MG TAB PO SCH (20:36)
[2021-02-14] MEDS: HEPARIN SOD 5,000 UNIT/0.5 ML VIAL SQ SCH (20:36)
[2021-02-14] MEDS ORDERED: POLYETHYLENE (MIRALAX) 17 GM PACK PO SCH (21:00)
[2021-02-14] MEDS ORDERED: DONEPEZIL HCL 5 MG TAB PO SCH (21:00)
[2021-02-15] MEDS: HEPARIN SOD 5,000 UNIT/0.5 ML VIAL SQ SCH (07:52)
[2021-02-15] MEDS: busPIRone 5 MG TAB PO SCH (07:54)
[2021-02-15 07:55] LABS: BUN Creatinine Ratio 12.4 (10-20); Calcium 8.9 mg/dl (8.5-10.1); Creatinine Clr Calc Pharmacy 80.7 ml/min; Est GFR (Non-African American) 85.5 ml/min; Magnesium 2.1 mg/dl (1.8-2.4); Potassium 3.8 mmol/L (3.5-5.1)
[2021-02-15] MEDS ORDERED: LOSARTAN POTASSIUM 25 MG TAB PO SCH (09:00)
[2021-02-15] MEDS ORDERED: SERTRALINE HCL 100 MG TABLET PO SCH (09:00)
[2021-02-15] MEDS ORDERED: SERTRALINE HCL 50 MG TABLET PO SCH (09:00)
[2021-02-15] MEDS ORDERED: CEROVITE ADV FORMULA TAB PO SCH (09:00)
[2021-02-15] MEDS ORDERED: ASPIRIN 81 MG ECTAB PO SCH (09:00)
--- NOTE | 2021-02-24 09:31 | Discharge Summary ---
Date of Service February 15, 2021 Admission HPI Per Admitting Provider 85-year-old male who comes in after feeling weak while he was in the shower. He describes as more of a weakness rather than a vertigo or spinning he lowered himself down there is no fall or injury there was no loss of consciousness. Patient does have some memory impairment. His is present at the bedside and fills in most of the conversation. Reportedly he has been having increasing urinary incontinence at night. He has been progressively weaker since his ER visit approximately a week ago. Patient denied having any chest pain or pressure feelings of palpitations he is back to his normal mental state however his legs are significantly weak and cannot lift them off the bed. His lower extremities show changes of chronic venous stasis he is incontinent of urine in his briefs Principal Diagnosis Weakness from viral illness Discharge Exam The patient appeared well nourished and normally developed. Vital signs as documented. Head exam is normocephalic atraumatic Neck is without JVD, thyromegaly, or carotid bruits. Lungs some very fine rhonchi are heard which clear with deep inspiration Cardiac exam, Rhythm is regular.. No murmurs, rubs or gallops. Abdominal exam reveals normal bowel sounds, soft non tender, no masses Extremities are nonedematous and both pedal pulses are present Neurologic exam is alert and oriented, x2 patient has good sensation of his legs but cannot lift them off the bed. He has pulses intact at dorsalis pedis bilaterally Skin is with in a stasis dermatitis \ Discharge Data Allergies Allergy/AdvReac Type Severity Reaction Status Date / Time citalopram Allergy Unknown Unknown Verified 02/14/21 11:48 Consultations 02/14/21 12:09 ED Decision to Admit Stat Ordered Studies 02/14/21 10:15 CT head/brain wo con Stat Hospital Course (1) Weakness: On admission: Unclear whether this is progression of his previous existing spinal disease or encephalopathy from UTI has he has had urinary incontinence. Urine culture is pending. Patient also did have a fall in the shower after not eating or drinking for more than 12 hours. He did not take his morning medications. PT OT evaluation checking for metabolic encephalopathy from UTI. He does have some interstitial changes on his chest x-ray which will urge me not to hydrate him at this time. Clinically he looks euvolemic and his BUN/creatinine seem to be stable Patient underwent third endoscopic third ventriculostomy for normal pressure hydrocephalus treatment on December 11, [address] Nichols [facility] CT scan on presentation is not significantly comment on any enlargement of ventricles are concerned that his ventriculostomy may not be functioning correctly. The patient does not have a urinary tract infection consideration of neurologic consult to evaluate for worsening of his normal pressure hydrocephalus. On day of discharge, Patient is feeling better. Patient is more ambulatory and participated with rehab. Urine analysis is clean which rules out UTI. Patient clinically was euvolemic and did not appear to be in acute Congestive heart failure. Echocardiogram showed normal EF with perhaps grade 1 diastolic dysfunction. Perhaps patient had a viral infection. Had discussion with daughter who was at bedside, she was agreeable for discharge. Patient has 24 hour care at home. (2) Abnormal chest x-ray: Patient with increased interstitial changes on chest x-ray unknown if chronic patient's did not seem to have any knowledge of having chronic lung disease. Subsequently we will check an echocardiogram he does not sound to be in congestive failure at this time he does not have Covid or other infectious symptoms of pneumonitis but will evaluate for his systolic function given his history of hypertension. (3) Spinal stenosis: Last imaging I can find is a myelogram from 2005 which showed degenerative changes L2-L5, patient has no radicular signs or symptoms with global weakness he also has no neurological sensory loss. (4) Prostate cancer: Is by history takes no medications at this time (5) Depression: Typically sertraline continue (6) Dementia: Will continue on Aricept (7) Hypertension: We will continue losartan follow blood pressure checked orthostatics in the morning Total Time Total Time Spent Total Time Spent (In Minutes): 32 Discharge Plan Discharge Items Patient Disposition: Home - Self-Care Reason For Visit: PRESYNCOPE, WEAKNESS, URINARY INCONT Discharge Diagnosis: weakness likely from viral illness Activity: Resume your previous activity Non-emergency contact: Primary Care Provider Call non-emergency contact if: you have any medication questions Follow-up/Referrals: Shaun Felix MD [Primary Care Provider] - Diet: Regular Addtl Attending Provider Instructions: You have been hospitalized for an acute medical problem. During your stay at [facility], we have made an effort to correct the problem that brought you to the hospital while keeping you as comfortable as possible. Medications were used to bring your condition under control and your discharge instructions will include directions for any medications you should take after leaving the hospital. Please make sure you see your Primary Care Provider as part of your follow up plan. Pending Studies at Discharge: No Stand-Alone Forms: My [facility], Smoking Cessation Medications and DC Order Prescriptions: New benzonatate [Tessalon Perles] 100 mg capsule 100 mg PO BID PRN (Reason: cough) Qty: 14 RF: 0 Continued polyethylene glycol 3350 [Miralax] 17 gram/dose Powder 1 dose PO QPM RF: 0 Centrum Silver Men 300-600-300 mcg Tablet 1 tab PO QAM RF: 0 aspirin 81 mg Tablet,Delayed Release (Dr/Ec) 81 mg PO QAM RF: 0 betamethasone dipropionate 0.05 % Cream 1 applic TOPICAL BID PRN (Reason: ECZEMA) RF: 0 PreserVision Lutein 226 mg-200 unit -5 mg-0.8 mg Capsule 1 cap PO BID RF: 0 buspirone 5 mg Tablet 2.5 mg PO BID RF: 0 donepezil 5 mg Tablet 5 mg PO PM RF: 0 sertraline 100 mg Tablet 100 mg PO QAM RF: 0 sertraline 25 mg Tablet 25 mg PO QAM RF: 0 ibuprofen [Advil] 200 mg Tablet 200 mg PO UD PRN (Reason: Pain) RF: 0 Discontinued losartan 25 mg Tablet 25 mg PO QAM RF: 0 Discharge Orders: Discharge Order (Routine); Ordered 02/15/21 Ordered By: Geoff Ma Admission Data Admit Date/Time: 02/14/21 13:10 Attending Provider: Geoff Ma Admit Provider: Williams Mann Primary Care Provider: Shaun Felix Other Providers: Williams Mann Other Interventions: Discharge Summary Assessment (RN) Last Done: 02/15/21 18:51 Coding Level of Care Code D/C DAY MANAGEMENT >30 MINS Diagnoses Weakness R53.1 Abnormal chest x-ray R93.89 Spinal stenosis M48.00 Prostate cancer C61 Depression F32.9 Dementia F03.90 Hypertension I10 Time Spent (min) 32
== END 2021-02-15 19:05 | disposition home or self-care (01) | DRG 866 ==
LOC: 2W 09:45 → ED 09:45 → OBSVTOIN 13:10 → SUATTDRO 13:10 → 2W 16:17

== ENCOUNTER 2021-03-08 08:43 | Inpatient (IN) ==
[2021-03-08] MEDS ORDERED: LORazepam 0.5 MG/1 ML VIAL IV STA (08:53)
[2021-03-08] MEDS ORDERED: SODIUM CHLORIDE 0.9% 1000ML 500 ML IV ONE (08:53)
--- NOTE | 2021-03-08 08:59 | Emergency Department Note ---
Impression & Plan Weakness, Urinary incontinence, Muscle rigidity, Acute UTI ED Provider Note NAME: OTTO VARGAS AGE: 85 SEX: M : 1935 ARRIVES VIA: Ambulance INFORMANT: [Patient][ems] ED PROVIDER(S): [Darrel Gill MD] CHIEF COMPLAINT: Weakness HISTORY OF PRESENT ILLNESS: The patient is an 85-year-old male who presents with weakness/muscle spasm. The patient states that he woke up this morning and he was like this. He could not move. He is speaking fine. The patient has had several episodes similar to the above. He was in the ER and actually admitted to the hospital at 1 point. He was seen by neurology yesterday. At this point, no etiology for his presentation has been determined. The patient currently has no pain, no headache. He denies shortness of breath. He has not been sick or ill with any cough or cold symptoms. He has no urinary complaints. No abdominal pain. He states he just cannot move as his muscles are all in spasm. He does not really have pain. REVIEW OF SYSTEMS: See HPI for pertinent positives and negatives. A total of ten systems were reviewed and were otherwise negative. PMHx/PSHx: See Below SOCIAL HISTORY: See Below. PHYSICAL EXAM: GENERAL: Patient is in no acute distress. HEENT: No acute trauma, normocephalic atraumatic, mucous membranes moist, no nasal congestion, no scleral icterus. NECK: No stridor, no adenopathy, no meningismus, trachea is midline. LUNGS: Clear to auscultation bilaterally, no wheeze, no rhonchi, breath sounds equal. HEART: Without murmurs gallops or rubs, regular rate and rhythm. ABDOMEN: Soft, nontender, bowel sounds positive, no hernias, no peritonitis. EXTREMITIES: The patient's muscles appear in spasm. His legs are in extension and very difficult to move in any direction. His arms are flexed at the elbows and somewhat at the wrists and laying across his chest, there is some mild bilateral pedal edema. NEUROLOGIC: Awake and alert, no speech slur, his muscles all seem in spasm across his extremities. SKIN: No rash, no jaundice, no diaphoresis. DIFFERENTIAL DIAGNOSIS: Electrolyte imbalance, dehydration, medication reaction, seizure, UTI, int racranial event, stroke, among others. EMERGENCY DEPARTMENT COURSE/PROCEDURES: MEDICAL DECISION MAKING: There is no leukocytosis or worrisome anemia. There is a normal platelet count. Sodium slightly low at 135. No renal failure. Magnesium and phosphorus values were normal. No concerning liver enzyme elevation. The patient appeared to be in a euthyroid state. Urinalysis was consistent with infection. Covid testing returned negative. On exam, the patient's muscles were in spasm. His upper and lower extremities were almost rigid. He was awake and interactive and speaking normally. The patient received IV saline, he was given IV Ativan and IV ceftriaxone. The cause for this recurrent muscle spasm and rigidity is unclear. I did discuss the case with neurology. We discussed the possibility of this being related to medications, possibly, he would improve with the stoppage of his psychiatric meds. Further care/sedation is required. The UTI of course may be contributing to his presentation today. I did speak with the patient and his family, I spoke with case management. The on-call hospitalist was consulted. Past Med/Surg History Medical History Anxiety Arthritis Constipation Depression Eczema Hiatal hernia DX 30 YR AGO History of prostate cancer HX 1996 PROSTATECTOMY, NO CHEMO/NO RADIATION Hypertension Otosclerosis Overactive bladder Spinal stenosis B/L LE NEUROPATHY Urinary incontinence DEPENDS Urinary incontinence Weight loss 20 POUNDS OVER LAST 2 YRS/HAS UPCOMING APPOINTMENT WITH NEUROLOGY SEPTEMBER 2020 ...? [facility] Surgical History History of ankle surgery History of colonoscopy History of ear surgery History of hernia repair History of inguinal hernia repair History of right cataract extraction Hx of prostatectomy Hx of tonsillectomy Family History Mother Family history of diabetes mellitus Hypertension Diabetes Sister Family history of diabetes mellitus Diabetes Anxiety Father Pancreatic cancer Brother No problems noted. Sister Family history of diabetes mellitus Grandmother (Maternal) Diabetes Grandmother (Paternal) Mental illness in member of household Social History Smoking Status: Never smoker Second Hand Exposure: No; Hx Alcohol Use: No Hx Substance Use: No Preferred Language: Turkmen Communication Ability: Effective Sales And Service Consultant Required: No Beliefs That Will Affect Care: None marital status: Current Living Situation: Spouse current occupational status: retired How many Children do You have: 4 Feels Safe at Home: Yes Assistive Devices: Walker Allergies Allergies Allergy/AdvReac Type Severity Reaction Status Date / Time No Known Allergies Allergy Unverified 03/08/21 11:02 Home Meds Home Medications Medication Instructions Recorded Confirmed tfrevnrp-tks-lfoqy acid 300 1 tab PO QAM 02/17/18 03/08/21 mcg-lycopene 600 mcg-lutein 300 mcg tablet (Centrum Silver Men) polyethylene glycol 3350 17 1 dose PO QPM 02/17/18 03/08/21 gram/dose oral powder (Miralax) ibuprofen 200 mg tablet (Advil) 200 mg PO UD PRN MDD fever/pain 08/10/20 03/08/21 aspirin 81 mg tablet,delayed 81 mg PO QAM 02/07/21 03/08/21 release vit C-vit H-gpoawo-qxni ox-lutein 1 cap PO BID 02/07/21 03/08/21 226 mg-200 unit-5 mg-0.8 mg capsule (PreserVision Lutein) buspirone 5 mg tablet 2.5 mg PO BID 02/14/21 03/08/21 sertraline 100 mg tablet 100 mg PO QAM 02/14/21 03/08/21 sertraline 25 mg tablet 25 mg PO QAM 02/14/21 03/08/21 donepezil 10 mg tablet 5 mg PO HS 03/08/21 03/08/21 olanzapine 10 mg tablet (Zyprexa) 10 mg PO HS 03/08/21 03/08/21 omeprazole 20 mg capsule,delayed 20 mg PO HS 03/08/21 03/08/21 release Results & Data (ED) Vital Signs Vital Signs - 24 hr 03/08/21 08:53 03/08/21 08:54 03/08/21 10:38 Temperature 36.7 C Temperature Source Oral Pulse Rate 58 L Pulse Rate [Apical] 60 55 L Respiratory Rate 18 16 16 Respiratory Pattern Blood Pressure 137/76 Blood Pressure [Left Arm] 137/76 137/76 Blood Pressure Mean 96 Blood Pressure Mean [Left Arm] 96 96 Blood Pressure Position Lying Pulse Oximetry 99 98 98 Oxygen Delivery Method Room Air Room Air Sepsis Recent Fever Within 48 Hours No Sepsis New/Unexplained Change in Mental Status No Sepsis Action Taken by Nursing No Action Required 03/08/21 12:00 Temperature Temperature Source Pulse Rate Pulse Rate [Apical] 77 Respiratory Rate 18 Respiratory Pattern Regular Blood Pressure Blood Pressure [Left Arm] 126/73 Blood Pressure Mean Blood Pressure Mean [Left Arm] 90 Blood Pressure Position Pulse Oximetry 96 Oxygen Delivery Method Room Air Sepsis Recent Fever Within 48 Hours Sepsis New/Unexplained Change in Mental Status Sepsis Action Taken by [facility] Medications Current Medication List: was personally reviewed by me Laboratory Data Attestation: I reviewed the patient's lab results. Result diagrams: 03/08/21 09:00 03/08/21 11:16 Lab Results 03/08/21 03/08/21 03/08/21 Range/Units 08:54 08:54 09:00 WBC 5.70 (4.8-10.8) K/uL RBC 4.26 L (4.7-6.1) M/uL Hgb 13.5 L (14.0-18.0) g/dL Hct 38.9 L (42-52) % MCV 91.3 (80-100) fL MCH 31.7 (25-34) pg MCHC 34.7 (32-36) g/dL RDW Std Deviation 46.5 H (36.4-46.3) fL RDW Coeff of Bambi 14.0 (11.5-14.5) % Plt Count 156 (130-400) K/uL MPV 9.5 (7.4-10.4) fL Immature Gran % (Auto) 0.5 % Neut % (Auto) 69.2 % Lymph % (Auto) 18.4 % [place] % (Auto) 9.8 % Eos % (Auto) 1.9 % Baso % (Auto) 0.2 % Neut # (Auto) 3.94 (1.4-6.5) K/uL Lymph # (Auto) 1.05 L (1.2-3.4) K/uL [place] # (Auto) 0.56 (0.11-0.59) K/uL Eos # (Auto) 0.11 (0-0.5) K/uL Baso # (Auto) 0.01 (0-0.2) K/uL Immature Gran # (Auto) 0.03 H (0.00-0.02) K/uL Sodium (136-145) mmol/L Potassium (3.5-5.1) mmol/L Chloride (98-107) mmol/L Carbon Dioxide (21-32) mmol/L Anion Gap (3-11) BUN (7-18) mg/dl Creatinine (0.6-1.4) mg/dl Est Cr Clr Drug Dosing ml/min Est GFR ( Amer) ml/min Est GFR (Non-Af Amer) ml/min BUN/Creatinine Ratio (10-20) Glucose (70-99) mg/dl Calcium (8.5-10.1) mg/dl Phosphorus (2.5-4.9) mg/dl Magnesium (1.8-2.4) mg/dl Total Bilirubin (0.2-1) mg/dl AST (15-37) U/L ALT (12-78) U/L Alkaline Phosphatase (45-117) U/L Total Creatine Kinase (39-308) U/L Total Protein (6.4-8.2) gm/dl Albumin (3.4-5.0) gm/dl Globulin (2.5-4.0) gm/dl Albumin/Globulin Ratio (0.9-2) TSH (0.300-4.500) uIu/ml Specimen Hemolysis Urine Color Urine Appearance (Clear) Urine pH (4.5-7.5) Ur Specific [place] (1.000-1.030) Urine Protein (Negative) Urine Glucose (UA) (Negative) Urine Ketones (Negative) Urine Blood (Negative) Urine Nitrite (Negative) Urine Bilirubin (Negative) Urine Urobilinogen (Negative) Ur Leukocyte Esterase (Negative) Urine WBC (Auto) (0-5) /hpf Urine RBC (Auto) (0-4) /hpf U Hyaline Cast (Auto) (0-5) /lpf U Epithel Cells (Auto) (0-5) /lpf Urine Bacteria (Auto) (Negative) COVID-19 Eval Order Covid19 at [facility] SARS-CoV-2 (PCR) NEGATIVE (Negative) 03/08/21 03/08/21 03/08/21 Range/Units 09:00 11:06 11:16 WBC (4.8-10.8) K/uL RBC (4.7-6.1) M/uL Hgb (14.0-18.0) g/dL Hct (42-52) % MCV (80-100) fL MCH (25-34) pg MCHC (32-36) g/dL RDW Std Deviation (36.4-46.3) fL RDW Coeff of Bambi (11.5-14.5) % Plt Count (130-400) K/uL MPV (7.4-10.4) fL Immature Gran % (Auto) % Neut % (Auto) % Lymph % (Auto) % [place] % (Auto) % Eos % (Auto) % Baso % (Auto) % Neut # (Auto) (1.4-6.5) K/uL Lymph # (Auto) (1.2-3.4) K/uL [place] # (Auto) (0.11-0.59) K/uL Eos # (Auto) (0-0.5) K/uL Baso # (Auto) (0-0.2) K/uL Immature Gran # (Auto) (0.00-0.02) K/uL Sodium 135 L (136-145) mmol/L Potassium 4.3 (3.5-5.1) mmol/L Chloride 102 (98-107) mmol/L Carbon Dioxide 32 (21-32) mmol/L Anion Gap 1.0 L (3-11) BUN 10 (7-18) mg/dl Creatinine 0.70 (0.6-1.4) mg/dl Est Cr Clr Drug Dosing 78.2 ml/min Est GFR ( Amer) 99.0 ml/min Est GFR (Non-Af Amer) 85.5 ml/min BUN/Creatinine Ratio 14.3 (10-20) Glucose 103 H (70-99) mg/dl Calcium 8.8 (8.5-10.1) mg/dl Phosphorus 3.1 (2.5-4.9) mg/dl Magnesium 2.3 (1.8-2.4) mg/dl Total Bilirubin 1.0 (0.2-1) mg/dl AST 20 (15-37) U/L ALT 21 (12-78) U/L Alkaline Phosphatase 94 (45-117) U/L Total Creatine Kinase 60 (39-308) U/L Total Protein 7.3 (6.4-8.2) gm/dl Albumin 3.4 (3.4-5.0) gm/dl Globulin 3.9 (2.5-4.0) gm/dl Albumin/Globulin Ratio 0.9 (0.9-2) TSH 2.360 (0.300-4.500) uIu/ml Specimen Hemolysis Urine Color Yellow Urine Appearance Clear (Clear) Urine pH 8.0 H (4.5-7.5) Ur Specific [place] 1.005 (1.000-1.030) Urine Protein Negative (Negative) Urine Glucose (UA) Negative (Negative) Urine Ketones Negative (Negative) Urine Blood Negative (Negative) Urine Nitrite Negative (Negative) Urine Bilirubin Negative (Negative) Urine Urobilinogen Negative (Negative) Ur Leukocyte Esterase 2+ H (Negative) Urine WBC (Auto) 10-30 H (0-5) /hpf Urine RBC (Auto) 0-4 (0-4) /hpf U Hyaline Cast (Auto) 1-5 (0-5) /lpf U Epithel Cells (Auto) 0-5 (0-5) /lpf Urine Bacteria (Auto) 3+ H (Negative) COVID-19 Eval Order SARS-CoV-2 (PCR) (Negative) Administered Medications Discontinued Medications Buspirone HCl (Buspirone 5 Mg Tab) 2.5 mg PO ONE STA Stop: 03/08/21 11:58 Last Admin: 03/08/21 12:58 Dose: 2.5 mg Documented by: [id number] Sodium Chloride (Nss 1000ml) 500 mls @ 999 mls/hr IV .Q31M ONE Stop: 03/08/21 09:23 Last Admin: 03/08/21 09:12 Dose: 999 mls/hr Documented by: [id number] Lorazepam (Ativan) 0.5 mg in 1 mls @ 1 mls/min IV NOW STA Stop: 03/08/21 08:54 Last Admin: 03/08/21 09:13 Dose: 1 mls/min Documented by: [id number] Ceftriaxone Sodium (Rocephin) 1,000 mg in 50 mls @ 100 mls/hr IV NOW STA Stop: 03/08/21 12:17 Last Admin: 03/08/21 12:19 Dose: 100 mls/hr Documented by: [id number] Sertraline HCl (Sertraline Hcl 50 Mg Tablet) 150 mg PO ONE STA Stop: 03/08/21 11:58 Last Admin: 03/08/21 12:58 Dose: 150 mg Documented by: [id number] Discharge Plan Visit Data Chief Complaint: Weakness Stated Complaint: Unable to Ambulate ED Provider: Darrel Gill Discharge Problem: Weakness, Urinary incontinence, Muscle rigidity, Acute UTI Patient Disposition: Admitted As Inpatient Condition: Fair Discharge Problem: Urinary incontinence Qualifiers: Urinary Incontinence type: unspecified incontinence Qualified Code(s): R32 - Unspecified urinary incontinence
[2021-03-08 09:17] LABS: Basophils # (auto) 0.01 K/uL (0-0.2); Basophils % (auto) 0.2 %; Eosinophils # (auto) 0.11 K/uL (0-0.5); Eosinophils % (auto) 1.9 %; Hematocrit (blood only) 38.9 % (42-52); Hemoglobin 13.5 g/dL (14.0-18.0); Immature Granulocytes # (auto) 0.03 K/uL (0.00-0.02); Immature Granulocytes % (auto) 0.5 %; Lymphocytes # (auto) 1.05 K/uL (1.2-3.4); Lymphocytes % (auto) 18.4 %; Mean Corpuscular Hemoglobin 31.7 pg (25-34); Mean Corpuscular Hgb Conc 34.7 g/dL (32-36); Mean Corpuscular Volume 91.3 fL (80-100); Mean Platelet Volume 9.5 fL (7.4-10.4); Monocytes # (auto) 0.56 K/uL (0.11-0.59); Monocytes % (auto) 9.8 %; Neutrophils # (auto) 3.94 K/uL (1.4-6.5); Neutrophils % (auto) 69.2 %; Platelet Count 156 K/uL (130-400); RDW Standard Deviation 46.5 fL (36.4-46.3); Red Blood Count 4.26 M/uL (4.7-6.1)
[2021-03-08 09:54] LABS: Magnesium 2.3 mg/dl (1.8-2.4); Phosphorus 3.1 mg/dl (2.5-4.9); Thyroid Stimulating Hormone 2.36 uIu/ml (0.300-4.500)
[2021-03-08 11:26] LABS: Appearance Urine Clear (Clear); Bacteria Urine Automated 3+ (Negative); Bilirubin Urine Negative (Negative); Blood Urine Negative (Negative); Color Urine Yellow; Epithelial Cell Urine Auto 0-5 /lpf (0-5); Glucose Urine UA Negative (Negative); Ketones Urine Negative (Negative); Leukocyte Esterase Urine 2+ (Negative); Nitrite Urine Negative (Negative); Protein Urine Negative (Negative); RBC Urine Automated 0-4 /hpf (0-4); Specific Gravity Urine 1.005 (1.000-1.030); Urobilinogen Urine Negative (Negative)
--- NOTE | 2021-03-08 11:36 | History & Physical Report ---
Date of Service March 08, 2021 Assessment & Plan (1) Muscle rigidity: Plan: Possible side effect of sertraline/buspirone but given significant anxiety which is currently controlled on these medications would elect to continue them currently and treat the UTI. ?Catatonia Consult neurology (2) Acute UTI: Plan: No specific symptoms of this however given catatonia above would elect to treat. Ceftriaxone 1g IV daily Follow up urine culture (3) Weakness: Plan: PT/OT (4) Anxiety: Plan: Continue sertraline and Buspar as above (5) OCD (obsessive compulsive disorder): Plan: As above for anxiety (6) NPH (normal pressure hydrocephalus): Plan: Noted history of this. (7) Dementia: Plan: Continue donepezil Plan: VTE prophylaxis - deferred, SCDs increased falls risk and low risk DVT, if pr olonged stay or immobile consider chemical prophylaxis Diet - regular Disposition - observation status to med/tele Admission and Anticipated Discharge Date Admission Date: March 09, 2021 History of Present Illness Chief Complaint: Muscle rigidity Primary Care Provider: Shaun Felix MD Ish Ac is an 85 year old male with anxiety, OCD and normal pressure h ydrocephalus who presents to the ER with dystonia. Most of the history is taken from his daughter at bedside. She reports this was the same kind of episode to what happened on March 06 and prior admission on February 14. He wakes up in the morning and has bilateral increased tone in all his limbs. This can take hours to improve. Reportedly on arrival to the ER he was in decorticate posturin g and it was very difficult to move any of his limbs. Prior workup for CVA on February 14 was negative and he was discharged with diagnosis of possible viral illness. On that occasion he was having increased tone during a nap in the afternoon. No pain noted during episodes. He is unable to speak proper during the episode as cannot move his mouth. Current after Ativan given in the ER he is more back to his normal self although speech is a little slow and tone remains mildly increased but supposedly much improved from arrival. She notes high anxiety and OCD with her father that has been present all his life but only needed treatment because of worsening severity in the last 5 years. He has normal pressure hydrocephalus and underwent third ventriculostomy at [facility] in January. His case was discussed with Dr Scott prior to admission and this was not felt to be causing his current symptoms. The patient lives with his and usually mobilizes with a cane. He was referred to medicine for weakness and muscle rigidity. Allergies Allergy/AdvReac Type Severity Reaction Status Date / Time No Known Allergies Allergy Unverified 03/08/21 11:02 Home Medications Medication Instructions Recorded Confirmed Type gnucovgu-ksu-xqyno acid 300 1 tab PO QAM 02/17/18 03/08/21 History mcg-lycopene 600 mcg-lutein 300 mcg tablet (Centrum Silver Men) polyethylene glycol 3350 17 1 dose PO QPM 02/17/18 03/08/21 History gram/dose oral powder (Miralax) ibuprofen 200 mg tablet (Advil) 200 mg PO UD PRN MDD fever/pain 08/10/20 03/08/21 History aspirin 81 mg tablet,delayed 81 mg PO QAM 02/07/21 03/08/21 History release vit C-vit L-siyycw-giya ox-lutein 1 cap PO BID 02/07/21 03/08/21 History 226 mg-200 unit-5 mg-0.8 mg capsule (PreserVision Lutein) buspirone 5 mg tablet 2.5 mg PO BID 02/14/21 03/08/21 History sertraline 100 mg tablet 100 mg PO QAM 02/14/21 03/08/21 History sertraline 25 mg tablet 25 mg PO QAM 02/14/21 03/08/21 History cetirizine 10 mg tablet (Zyrtec) 10 mg PO HS 03/08/21 03/08/21 History donepezil 10 mg tablet 5 mg PO HS 03/08/21 03/08/21 History omeprazole 20 mg capsule,delayed 20 mg PO HS 03/08/21 03/08/21 History release Past Med/Surg History Medical History Anxiety Arthritis Constipation Depression Eczema Hiatal hernia DX 30 YR AGO History of prostate cancer HX 1996 PROSTATECTOMY, NO CHEMO/NO RADIATION Hypertension Otosclerosis Overactive bladder Spinal stenosis B/L LE NEUROPATHY Urinary incontinence DEPENDS Urinary incontinence Weight loss 20 POUNDS OVER LAST 2 YRS/HAS UPCOMING APPOINTMENT WITH NEUROLOGY SEPTEMBER 2020 ...? [facility] Surgical History History of ankle surgery History of colonoscopy History of ear surgery History of hernia repair History of inguinal hernia repair History of right cataract extraction Hx of prostatectomy Hx of tonsillectomy Family History Mother Family history of diabetes mellitus Hypertension Diabetes Sister Family history of diabetes mellitus Diabetes Anxiety Father Pancreatic cancer Brother No problems noted. Sister Family history of diabetes mellitus Grandmother (Maternal) Diabetes Grandmother (Paternal) Mental illness in member of household Social History Smoking Status: Former smoker Second Hand Exposure: No; Hx Alcohol Use: No Hx Substance Use: No Preferred Language: Macedonian Communication Ability: Effective Home School Liaison Officer Required: No Beliefs That Will Affect Care: None marital status: Current Living Situation: Spouse current occupational status: retired How many Children do You have: 4 Feels Safe at Home: Yes Safety Concerns: Feels Safe At This Time Assistive Devices: Walker Review of Systems Review of Systems: All systems reviewed & are unremarkable except as noted in HPI & below Physical Exam Constitutional: well developed; + not well nourished and no acute distress Eyes: PERRL, conjunctivae normal, anicteric sclerae ENMT: external ear and nose normal, oropharynx normal Neck: trachea midline, no thyromegaly Respiratory: normal respiratory effort, lungs clear to auscultation Cardiovascular: RRR, no murmur, no edema Gastrointestinal (Abdomen): normal bowel sounds, soft, nontender, no hepatosplenomegaly Musculoskeletal: no cyanosis or clubbing, extremities motor strength 5/5 Skin: no rashes, warm and dry Neurologic: moves all extremities, awake and + confused (at baseline per daughter at bedside, pt confused about recent events); no focal motor deficits (no lateralizing deficit) Speech / Cognition: normal speech Motor/Sensory: no pronator drift Tone increased in b/l equal upper extremities but it is intermittent and to some extent when distracted it appears to resolve Having difficulty relaxing and following one step commands Psychiatric: A+Ox3, euthymic affect Results & Data Results & Data ([facility]) Vital Signs (Past 12 Hours) Vital Signs Temp Pulse Pulse Resp BP BP Pulse Ox 10/15/21 10:38 55 L 16 137/76 98 03/08/21 08:54 36.7 C 58 L 16 137/76 98 03/08/21 08:53 60 18 137/76 99 Diagnostic Findings XR chest 1V portable HISTORY: 85 years-old Male Chest Pain acute atypical chest pain COMPARISON: Chest radiograph 12/05/2010, 02/22/2018 and 02/14/2021 TECHNIQUE: Portable AP view of the chest FINDINGS: The cardiac silhouette is mildly enlarged. No pneumothorax, pleural effusion or lobar airspace consolidation. Chronic coarsening of the interstitium is redemonstrated and appears slightly improved from comparison. Degenerative changes of the shoulders and spine. IMPRESSION: 1. No acute process. 2. Chronic interstitial coarsening is mildly improved from 02/14/2021. CT OF THE HEAD WITHOUT CONTRAST CLINICAL HISTORY: h/o NPH, extremity rigidity COMPARISON STUDY: Head CT February 14, 2021. CT DOSE: 614.27 mGy.cm TECHNIQUE: Helical axial images of the head were obtained without IV contrast. Automated exposure control was utilized for the study. A dose lowering technique was utilized adhering to the principles of ALARA. FINDINGS: No acute intracranial hemorrhage, midline shift or mass effect is present. Mild prominence of the lateral and third ventricles is unchanged. Right ventriculostomy tract is incidentally noted. The basal cisterns are patent. No extra-axial collections are present. There are no findings to suggest acute dural sinus thrombosis or acute territorial infarct. No significant calvarial abnormalities are present. Visualized portions of the sinuses and mastoid air cells are clear. IMPRESSION: No acute intracranial findings. No change in appearance of the brain. Stable ventricular system. Medications Administered ER Medications Given: NSS 500ml bolus Lorazepam 0.5mg IV Ceftriaxone 1g IV ECG Indication: altered mental status Rate (beats per minute): 61 Rhythm: normal sinus Findings: + RBBB Comparison ECG Date: from (February 14, 2021) Change: no significant change (poor quality EKG with background) Code Status & VTE Plan VTE Prophylaxis Plan VTE Prophylaxis will be ordered: Yes PG Care Time/CCT Total # of Minutes Spent Total Time Spent with Patient: Total time spent is greater than 50% in coordination of care (as documented) at patient's floor/unit and/or counseling patient: Coding Level of Care Code INT OBSERVATION CARE 70M LVL 3 Diagnoses Weakness R53.1 Muscle rigidity R29.898 Acute UTI N39.0 Anxiety F41.9 Dementia F03.90 NPH (normal pressure hydrocephalus) G91.2 OCD (obsessive compulsive disorder) F42.9
[2021-03-08 11:46] LABS: Albumin Level 3.4 gm/dl (3.4-5.0); BUN Creatinine Ratio 14.3 (10-20); Calcium 8.8 mg/dl (8.5-10.1); Creatinine Clr Calc Pharmacy 78.2 ml/min; Est GFR (Non-African American) 85.5 ml/min; Potassium 4.3 mmol/L (3.5-5.1)
[2021-03-08 11:48] LABS: Albumin Globulin Ratio 0.9 (0.9-2); Globulin 3.9 gm/dl (2.5-4.0); Total Protein 7.3 gm/dl (6.4-8.2)
[2021-03-08] MEDS ORDERED: cefTRIAXone SODIUM 1,000 MG/50 ML BAG IV STA (11:48)
[2021-03-08] MEDS ORDERED: busPIRone 5 MG TAB PO STA (11:57)
[2021-03-08] MEDS ORDERED: SERTRALINE HCL 50 MG TABLET PO STA (11:57)
[2021-03-08] MEDS: busPIRone 5 MG TAB PO SCH (21:49)
[2021-03-08] MEDS: PANTOprazole 40 MG TAB PO SCH (21:50)
[2021-03-08] MEDS: DONEPEZIL HCL 5 MG TAB PO SCH (21:50)
[2021-03-08] MEDS: POLYETHYLENE (MIRALAX) 17 GM PACK PO SCH (21:50)
[2021-03-09] MEDS: MELATONIN 3 MG TAB PO PRN ×2 (03:08→23:28)
[2021-03-09 07:10] LABS: Eosinophils # (auto) 0.13 K/uL (0-0.5); Eosinophils % (auto) 1.9 %; Hematocrit (blood only) 37.3 % (42-52); Hemoglobin 13.2 g/dL (14.0-18.0); Immature Granulocytes # (auto) 0.01 K/uL (0.00-0.02); Immature Granulocytes % (auto) 0.1 %; Lymphocytes # (auto) 1.23 K/uL (1.2-3.4); Lymphocytes % (auto) 17.8 %; Mean Corpuscular Hemoglobin 31.7 pg (25-34); Mean Corpuscular Hgb Conc 35.4 g/dL (32-36); Mean Corpuscular Volume 89.7 fL (80-100); Mean Platelet Volume 9.3 fL (7.4-10.4); Monocytes # (auto) 0.69 K/uL (0.11-0.59); Neutrophils # (auto) 4.86 K/uL (1.4-6.5); Neutrophils % (auto) 70.2 %; Platelet Count 166 K/uL (130-400); RDW Standard Deviation 46.1 fL (36.4-46.3); Red Blood Count 4.16 M/uL (4.7-6.1); White Blood Count 6.92 K/uL (4.8-10.8)
[2021-03-09 07:28] LABS: BUN Creatinine Ratio 16.7 (10-20); Calcium 8.6 mg/dl (8.5-10.1); Creatinine Clr Calc Pharmacy 79.3 ml/min; Est GFR (African American) 99.6 ml/min; Potassium 3.8 mmol/L (3.5-5.1)
--- NOTE | 2021-03-09 08:48 | Neurology Consultation ---
Date of Consultation March 09, 2021 Assessment & Plan (1) Bradykinesia: (2) Weakness: (3) Muscle rigidity: (4) Dementia: (5) Urinary incontinence: (6) NPH (normal pressure hydrocephalus): (7) Spinal stenosis: This patient is somewhat complicated neurologically. CT scans in August 2020 were not convincing for normal pressure hydrocephalus, but he did have some temporary improvement after a lumbar puncture/ CSF removal Test (for 24 hours). They went ahead and did the 3rd ventriculostomy procedure and he has had minimal improvement in gait and incontinence since. His cognitive function has not improved. Interestingly, today he is fairly good and his memory is somewhat reasonable to conversation both long and short-term. On examination he has rigidity, legs greater than arms bilaterally and symmetrically with some cogwheeling in the arms. He has bradykinesia and a masklike face. There was no tremor but he does have decreased facility in the hands, relatively brisk reflexes in the right arm and leg compared to the left and upgoing toes on the right. he cannot even ma intain a sitting posture and falls to the right. Given his clinical presentation, I cannot exclude a previous Left hemispheric stroke. Patient cannot get MRIs ( due to metallic implants in his ear). CT scan of the head on March 06 was unremarkable. He has a Parkinson's picture currently. An akinetic rigid form of Parkinson's (no tremor) along with some cognitive dysfunction is possible. Interestingly, he has episodic worsening of his muscle stiffness (including some dystonia ), but he still has significant rigidity and bradykinesia today (and he says his episode is completely over and he feels better) Patient does have a history of lumbar spinal stenosis. With his neck pain, I cannot exclude cervical spinal stenosis giving the upper motor neuron signs in the right arm and leg. Recommendations: 1. Since we cannot get MRIs obtain: CT scan of the cervical spine and brain, without contrast 2. initiate carbidopa/levodopa, 25/100mg, 1 tablets 3 times a day. 3. Increased an episode ill to 5 mg at bedtime. 4. continue antidepressants 5. Physical, occupational, and speech therapy consults Overall, I spent a total of 90 minutes with this case including review of record s, review of CT films, direct evaluation the patient bedside, and discussion of the case with the patient at bedside, RN at bedside, and Dr. Kramer, including differential diagnosis and treatment options. History of Present Illness Reason for Consultation: Patient is an 85-year-old, who was asked to see at the request of Dr. Miller, for neurologic consultation regarding rigidity and spasms Requesting Physician: Dr. Miller Attending Physician: Suhas Kramer, DO History of Present Illness patient has a history of generalized anxiety disorder, hypertension, lumbar spinal stenosis, and metallic inner ear implants in the past that prevent him from getting an MRI of the brain. He 1st saw Dr. Scott in August of 2020 for progressive gait disturbance associated with memory loss and cognitive problems as well as some urinary incontinence. He was bradykinetic but not rigid. There was no resting tremor but he did have considerable gait and postural instability but more consistent with a "magnetic" type gait Dr. Scott did not believe patient had Parkinson's disease although there was some parkinsonism. A CT scan of the head September 21 showed some mild ventricular system prominence but it was not felt to be out of proportion to the atrophy. The patient then saw Dr. Cruz, neurosurgeon at [facility] who was concerned regarding possible normal pressure hydrocephalus. Apparently he had a lumbar puncture with removal of CSF, at [facility], and for 24 hours he had some improvement and walking speed and was a little more alert and energetic. On December 11, patient underwent a 3rd ventriculostomy procedure by Dr. Cruz. He has been followed by Neurosurgery and Dr. Scott since. There was some mild improvement in gait and decrease urinary incontinence but he still has some memory / cognitive issues which are unchanged. He last saw Dr. Scott March 07. A CT scan of the head March 06 ( emergency room visit) was stable. There was a concern that he was more confused and he was having episodes of increased stiffness /rigidity/ spasms. Patient believes that they would come in episodes (either during the day or wake up with it ) and last hours. Echocardiogram February 14 was unremarkable. The patient arrived to the emergency room March 08 after having woke up in the morning with significant stiffness in his limbs. He could not move well but his cognitive function has remained unchanged. In the emergency room, he arrived at 8:53 a.m. on March 08 with a temperature of 36.7, pulse 60 and regular, respiratory rate 18, blood pressure 137/76 and O2 saturation 99%. He was described as having muscular rigidity in all 4 limbs. CBC showed mild anemia and Chem profile was remarkable for mildly low sodium. Magnesium, calcium, TSH was unremarkable. He was determined to have any acute urinary tract infection with Gram-negative bacilli. He is on IV Rocephin. This morning he feels less rigid and is moving better. He wants to go home. He denies pain during these episodes, confusion, numbness, or dizziness. Allergies Allergy/AdvReac Type Severity Reaction Status Date / Time No Known Allergies Allergy Unverified 03/08/21 11:02 Home Medications Medication Instructions Recorded Confirmed Type [id number]-wvx-[id number] acid 300 1 tab PO QAM 02/17/18 03/08/21 History mcg-lycopene 600 mcg-lutein 300 mcg tablet (Centrum Silver Men) polyethylene glycol 3350 17 1 dose PO QPM 02/17/18 03/08/21 History gram/dose oral powder (Miralax) ibuprofen 200 mg tablet (Advil) 200 mg PO UD PRN MDD fever/pain 08/10/20 03/08/21 History aspirin 81 mg tablet,delayed 81 mg PO QAM 02/07/21 03/08/21 History release vit C-vit H-uozcub-dpgc ox-lutein 1 cap PO BID 02/07/21 03/08/21 History 226 mg-200 unit-5 mg-0.8 mg capsule (PreserVision Lutein) buspirone 5 mg tablet 2.5 mg PO BID 02/14/21 03/08/21 History sertraline 100 mg tablet 100 mg PO QAM 02/14/21 03/08/21 History sertraline 25 mg tablet 25 mg PO QAM 02/14/21 03/08/21 History cetirizine 10 mg tablet (Zyrtec) 10 mg PO HS 03/08/21 03/08/21 History donepezil 10 mg tablet 5 mg PO HS 03/08/21 03/08/21 History omeprazole 20 mg capsule,delayed 20 mg PO HS 03/08/21 03/08/21 History release Patient History Medical History Anxiety Arthritis Constipation Depression Eczema Hiatal hernia DX 30 YR AGO History of prostate cancer HX 1996 PROSTATECTOMY, NO CHEMO/NO RADIATION Hypertension Otosclerosis Overactive bladder Spinal stenosis B/L LE NEUROPATHY Urinary incontinence DEPENDS Urinary incontinence Weight loss 20 POUNDS OVER LAST 2 YRS/HAS UPCOMING APPOINTMENT WITH NEUROLOGY SEPTEMBER 2020 ...? [facility]SONS Surgical History History of ankle surgery LEFT History of colonoscopy History of ear surgery L (WITH METAL IMPLANT) 2/2 OTOSCLEROSIS History of hernia repair History of inguinal hernia repair History of right cataract extraction Hx of prostatectomy Hx of tonsillectomy Family History Mother , age 84 with an intercerebral hemorrhage Family history of diabetes mellitus Hypertension Diabetes Sister Family history of diabetes mellitus Diabetes Anxiety Father , age 82 of pancreatic cancer Pancreatic cancer Brother No problems noted. 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, 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61 How many Children do You have: 4 Feels Safe at Home: Yes Safety Concerns: Feels Safe At This Time Assistive Devices: Walker Review of Systems Constitutional: + fatigue and + weakness; no fever Eyes: no diplopia, no eye pain and no worsening vision Ear, Nose, Mouth, Throat: + hearing loss and + dizziness; no ear pain, no tinnitus, no snoring, no hoarseness and no dysphagia Respiratory: no cough and no dyspnea Cardiovascular: no chest pain, no palpitations and no lightheadedness Gastrointestinal: no abdominal pain, no nausea and no vomiting Musculoskeletal: + back pain and + neck pain; no radicular pain, no joint pain and no myalgia Integumentary: no rash and no lesions Neurologic: + gait abnormality and + generalized weakness ( muscles very stiff); no localized weakness, no tingling, no numbness, no tremor(s), no abnormal movements, no headache(s), no abnormal speech, no confusion and no memory loss Psychiatric: no depression, no irritability, no anxiety, no difficulty concentrating, no confusion and no hallucinations Endocrine: no fatigue and no flushing Hematologic / Lymphatic: no easy bleeding and no easy bruising Allergy / Immunological: no urticaria and no problem reported Exam (Neuro) Physical Exam: The patient is right-handed. The patient is awake, alert, and attentive. Speech is normal without any aphasia or dysarthria. The patient can name objects, repeat phrases, and has normal spontaneous speech. Mentation and thought processes are intact, with orientation to person, place and time, and normal fund of knowledge. Attention and concentration are normal. Mood and affect are normal and appropriate. General appearance and grooming are normal. Short and long-term memory seem reasonable to conversation Pupils are 3 mm bilaterally and reactive to light. Extraocular eye muscles are intact without nystagmus. Visual acuity and visual simons seem normal grossly to confrontation. There are no deficits to sensation in the face in all 3 distributions of the fifth cranial nerve bilaterally. Corneal reflexes are positive bilaterally. Facial strength and symmetry was normal bilaterally. Hearing seems normal bilaterally. Palate moves well without asymmetry. There is normal sternocleidomastoid and trapezius (shoulder shrug) strength bilaterally. Tongue is midline with good strength bilaterally. The patient has a masklike face with decreased blink rate and a positive glabellar sign. Neck has a full range of motion without discomfort , but is mildly rigid. There are no cervical bruits bilaterally. There are no cranial or ocular bruits. Heart is without murmur. There is a regular rhythm and rate. Cervical, thoracic, and lumbar spine are nontender to palpation. Gait was not tested. I attempted to have the patient sit up on the edge of the bed with his feet dangling but he could not maintain posture and kept leaning to the right. With outstretched arms there is no drift , but he did posture some with the left upper extremity distally. There are no resting, postural, or action tremors. There is no ataxia with finger to nose testing. There is decreased facility in the hands. No other abnormal involuntary movements are noted. Motor strength is 5/5 diffusely in the arms bilaterally including deltoids, b iceps, triceps, brachioradialis, wrist flexors and extensors, utility technician, and intrinsic hand muscles. Motor strength is 5/5 diffusely in the legs bilaterally including hip flexors, quadriceps, hamstrings, gastrocnemius, tibialis anterior, tibialis posterior, and Peroneii muscles. Toe extensors are normal and there is good bulk in the extensor digitorum brevis muscles bilaterally. The limbs have increased tone with rigidity legs greater than arms and there is cogwheeling in the arms. Sensory examination is intact to touch and pin throughout all 4 limbs diffusely. Reflexes are 3/4 in the biceps, triceps, brachioradialis, and quadriceps tendons on the right. reflexes were 2/4 in the biceps, brachial radialis, and triceps tendons on the left. The left quadriceps was 1/4 and both Achilles tendon reflexes were absent bilaterally. There is no clonus bilaterally. Toes are downgoing with plantar stimulation on the left and upgoing with plantar stimulation on the right Peripheral pulses are present and of normal quality distally in all 4 limbs. There is no peripheral edema noted in the limbs. Results & Data ([facility]) Vital Signs (Past 12 Hours) Vital Signs Temp Pulse Pulse Pulse Resp BP BP 03/09/21 08:13 36.4 C L 68 14 122/76 03/09/21 03:17 36.7 C 71 18 127/79 03/08/21 23:50 36.8 C 70 20 113/65 03/08/21 23:43 72 Pulse Ox 03/09/21 08:13 96 03/09/21 03:17 95 03/08/21 23:50 94 03/08/21 23:43 PG Care Time/CCT Total # of Minutes Spent Total Time Spent with Patient: Total time spent is greater than 50% in coordination of care (as documented) at patient's floor/unit and/or counseling patient: Coding Level of Care Code 63059 Office/Outpt Visit, Est Diagnoses Bradykinesia R25.8 Weakness R53.1 Muscle rigidity R29.898 Dementia F03.90 Dementia behavioral disturbance: without behavioral disturbance Dementia type: unspecified type Urinary incontinence R32 NPH (normal pressure hydrocephalus) G91.2 Spinal stenosis M48.00 Time Spent (min) 90 Comment had modifiers as able (1) Dementia Dementia behavioral disturbance: without behavioral disturbance Dementia type: unspecified type Qualified Code(s): F03.90 - Unspecified dementia without behavioral disturbance
[2021-03-09] MEDS: busPIRone 5 MG TAB PO SCH ×2 (09:30→22:30)
[2021-03-09] MEDS: ASPIRIN 81 MG ECTAB PO SCH (09:30)
[2021-03-09] MEDS: CEROVITE ADV FORMULA TAB PO SCH (09:30)
[2021-03-09] MEDS: MULTIVITAMIN TAB PO SCH (09:30)
[2021-03-09] MEDS: SERTRALINE HCL 50 MG TABLET PO SCH (10:42)
[2021-03-09] MEDS: SERTRALINE HCL 100 MG TABLET PO SCH (10:43)
--- NOTE | 2021-03-09 12:10 | CT Scan Report ---
CERVICAL SPINE CT CT DOSE: 1286.50 mGy.cm HISTORY: Weakness. Stroke symptoms. Neck pain. TECHNIQUE: Multiaxial CT images of the cervical spine were performed and reformatted in the sagittal and coronal plane without the use of contrast. A dose lowering technique was utilized adhering to th e principles of ALARA. COMPARISON: None. FINDINGS: There is a 1.3 cm right thyroid nodule. This does not meet CT criteria for follow-up. No pn eumothorax. Prevertebral soft tissues are intact. No fracture or subluxation within the cervical spin e. The C1-C2 interval is intact. There is mild disc space narrowing at C2-C3 and C4-C5. There is heidy re disc space narrowing at C3-C4 and C5-C6. The C6-C7 vertebral bodies are fused. There are severe ce ntral canal narrowing at C3-C4 due to a broad-based posterior disc osteophyte complex. The central ca nal measures a diameter of 4 mm. There is also severe bilateral neural foraminal narrowing at this le arben. There is severe central canal and severe left-sided neural foraminal narrowing at C4-C5. There i s also moderate right-sided neural foraminal narrowing at this level. There is moderate central canal narrowing at C5-C6 and C6-C7 with moderate to severe bilateral neural foraminal narrowing due to the broad-based posterior disc bulges. IMPRESSION: 1. No fractures within the cervical spine. 2. Advanced degenerative changes throughout the cervical spine resulting in multilevel moderate to se eden central canal and neural foraminal narrowing. This is most pronounced at the C3-C4 level. ACT 112: Negative or not required by law. Electronically signed by: Celso Martinez M.D. 03/09/2021 12:09 PM
--- NOTE | 2021-03-09 12:12 | CT Scan Report ---
HEAD CT NONCONTRAST CT DOSE: HISTORY: Weakness. ? CVA TECHNIQUE: Multiaxial CT images of the head were performed without the use of intravenous contrast. A utomated exposure control was utilized for this study. A dose lowering technique was utilized adheri ng to the principles of ALARA. Comparison: Head CT 03/06/2021. Findings: The paranasal sinuses and mastoid air cells are clear. The calvarium and skull base are int act. There is no mass, hematoma, midline shift, acute infarct. White matter hypodensity is nonspecifi c but suggestive of microvascular ischemic change. The ventricles and sulci demonstrate mild age-rela sammy involutional changes. There is an old right frontal omar hole with an old ventriculostomy tract, unchanged. The ventricles remain stable in size. Impression: No significant change compared to the prior study. No acute intracranial abnormality. ACT 112: Negative or not required by law. Electronically signed by: Celso Martinez M.D. 03/09/2021 12:10 PM
[2021-03-09] MEDS: cefTRIAXone SODIUM 1,000 MG in DEXTROSE 5% 50 ML IV SCH (12:32)
[2021-03-09] MEDS: CARBIDOPA/LEVODOPA 25/100MG TAB PO SCH ×2 (13:31→23:29)
--- NOTE | 2021-03-09 17:06 | Hospitalist Progress Note ---
Date of Service March 09, 2021 Assessment & Plan (1) Bradykinesia: Plan: See below. (2) Weakness: Plan: See below. Also may be r/t to UTI. UC&S pending. Continue IV ceftriaxone. PT/OT Patient would likely benefit from rehab stay. Not a candidate for [facility] therapy requirements. Could consider [facility] or [facility]. Will consult case management to discuss further with the patient and his . Both the patient and his are interested in more information at this time. (3) Muscle rigidity: Plan: Recurrent episodes of muscle rigidity and catatonia. Neurology consulted. Appreciate input---> possible left hemispheric stoke and/or Parkinson's - CT of the head and cervical spine obtained today. Unfortunately the patient cannot have an MRI. - spine - Moderate to severe central canal and neural foraminal narrowing most pronounced at the C3-C4 level. No fractures noted. - head- No significant acute intracranial abnormality or change compared to CT from January - Recommended initiating Sinemet 25/100mg TID - started 03/09/21 - Continue donepezil 5mg PO HS (4) Dementia: Plan: Continue donepezil 5mg PO HS. (5) NPH (normal pressure hydrocephalus): Plan: Hx of 3rd ventriculostomy at [facility] in November. (6) Spinal stenosis: Plan: See CT findings. (7) Weakness: Plan: As above. (8) Acute UTI: Plan: As above. UC&S pending. Continue IV ceftriaxone pending sensitivities. (9) Anxiety: Plan: Continue sertraline and Buspar. (10) OCD (obsessive compulsive disorder): Plan: As above for anxiety. Plan: VTE prophylaxis - deferred, SCDs increased falls risk and low risk DVT, if prolonged stay or immobile consider chemical prophylaxis Diet - regular Disposition - observation status to med/tele Admission and Anticipated Discharge Date Admission Date: March 08, 2021 Subjective Patient reporting some nausea this morning after returning from CT scan. He vomited ~15ml clear liquid while I was in the room and then reported nausea was resolving. He denies pain. Review of Systems Review of Systems: All systems reviewed & are unremarkable except as noted in Subjective Physical Exam Physical Exam: Temp Pulse Resp BP Pulse Ox 36.8 C 67 18 135/74 98 03/09/21 16:17 03/09/21 16:17 03/09/21 16:17 03/09/21 16:17 03/09/21 16:17 Patient is afebrile. Vital signs stable. Constitutional: average body habitus; no acute distress Eyes: + anicteric sclerae ENMT: Ears: no hearing impairment Neck: normal visual inspection Respiratory: normal respiratory effort, lungs clear to auscultation Cardiovascular: RRR, no murmur, no edema Gastrointestinal (Abdomen): Inspection/Auscultation: normal bowel sounds Percussion/Palpation: abdomen soft; abdomen nontender and no hepatosplenomegaly Musculoskeletal: Head/Neck/Chest: normocephalic Extremities: + abnormal strength (b/l feet 3/5; b/l hands 4/5) Neurologic: moves all extremities; not confused Speech / Cognition: normal speech Motor/Sensory: no tremor Cranial Nerves: PERRL, normal facial strength and tongue midline Coordination: + abnormal dghgea-so-rjqh test Psychiatric: A+Ox3, euthymic affect Results & Data Results & Data ([facility]) Vital Signs (Past 12 Hours) Vital Signs Temp Pulse Pulse Resp BP Pulse Ox 03/09/21 16:17 36.8 C 67 18 135/74 98 03/09/21 11:58 36.4 C L 76 16 108/68 95 03/09/21 08:13 36.4 C L 68 14 122/76 96 PG Care Time/CCT Total # of Minutes Spent Total Time Spent with Patient: Total time spent is greater than 50% in coordination of care (as documented) at patient's floor/unit and/or counseling patient: Coding Level of Care Code 49744 Subseq Hosp Care Lvl 3 Diagnoses Bradykinesia R25.8 Weakness R53.1 Muscle rigidity R29.898 Dementia F03.90 Dementia behavioral disturbance: without behavioral disturbance Dementia type: unspecified type NPH (normal pressure hydrocephalus) G91.2 Spinal stenosis M48.00 Weakness R53.1 Acute UTI N39.0 Anxiety F41.9 OCD (obsessive compulsive disorder) F42.9 (1) Dementia Dementia behavioral disturbance: without behavioral disturbance Dementia type: unspecified type Qualified Code(s): F03.90 - Unspecified dementia without behavioral disturbance
[2021-03-09] MEDS: DONEPEZIL HCL 5 MG TAB PO SCH (22:30)
[2021-03-09] MEDS: PANTOprazole 40 MG TAB PO SCH (22:30)
[2021-03-09] MEDS: POLYETHYLENE (MIRALAX) 17 GM PACK PO SCH (22:30)
[2021-03-09] MEDS: ONDANSETRON INJ 2 MG/ML 2 ML VIAL IV PRN (22:33)
[2021-03-10] MEDS: busPIRone 5 MG TAB PO SCH ×2 (08:22→19:53)
[2021-03-10] MEDS: CARBIDOPA/LEVODOPA 25/100MG TAB PO SCH ×3 (08:22→19:52)
[2021-03-10] MEDS: MULTIVITAMIN TAB PO SCH (08:22)
[2021-03-10] MEDS: ASPIRIN 81 MG ECTAB PO SCH (08:23)
[2021-03-10] MEDS: SERTRALINE HCL 100 MG TABLET PO SCH (08:23)
[2021-03-10] MEDS: SERTRALINE HCL 50 MG TABLET PO SCH (08:23)
[2021-03-10] MEDS: CEROVITE ADV FORMULA TAB PO SCH (08:23)
--- NOTE | 2021-03-10 10:29 | Neurology Progress Note ---
Date of Service March 10, 2021 Assessment & Plan (1) Bradykinesia: (2) Weakness: (3) Muscle rigidity: (4) Dementia: (5) Urinary incontinence: (6) NPH (normal pressure hydrocephalus): (7) Spinal stenosis: Plan: This patient is somewhat complicated neurologically. CT scans in August 2020 were not convincing for normal pressure hydrocephalus, but he did have some temporary improvement after a lumbar puncture/ CSF removal Test (for 24 hours). They went ahead and did the 3rd ventriculostomy procedure and he has had minimal improvement in gait and incontinence since. His cognitive function has not improved. Interestingly, on the , he was fairly good, and his memory was somewhat reasonable to conversation both long and short-term. On examination he had rigidity, legs greater than arms bilaterally and symmetrically with some cogwheeling in the arms. He had bradykinesia and a masklike face. There was no tremor but he had decreased facility in the hands, relatively brisk reflexes in the right arm and leg compared to the left and upgoing toes on the right. he cannot even maintain a sitting posture and falls to the right. today, he has less bradykinesia and masklike face, better facility in the hands and less cogwheeling in the upper extremities. He is having some nausea to carbidopa/levodopa. Patient cannot get MRIs ( due to metallic implants in his ear) But repeat CT scan of the head plus a CT scan of the cervical spine showed no stroke, acute changes, or cord impingement. He has a Parkinson's picture currently. An akinetic rigid form of Parkinson's (no tremor) along with some cognitive dysfunction is possible. Interestingly, he has episodic worsening of his muscle stiffness (including some dystonia ), but he still has significant rigidity and bradykinesia today (and he says his episode is completely over and he feels better) . I think he is improved today compared to yesterday. Patient does have a history of lumbar spinal stenosis. Recommendations: 1. Change carbidopa/levodopa, 25/100 milligram, 2-1/2 tablet 3 times a day taken with a little bit of food (avoid big protein loads with each dose ) 2. change donepezil to 10 milligrams at bedtime 3. continue antidepressants at current doses 4. continue Physical, occupational, and speech therapy Overall, I spent a total of 35minutes with this case including review of records, review of CT films, direct evaluation the patient bedside, and discussion of the case with the patient at bedside and Myrna Petit PA-C, including differential diagnosis and treatment options. Admission and Anticipated Discharge Date Admission Date: March 08, 2021 Subjective Patient feels about the same today as he did yesterday with his movements. He is not overtly stiff. He does have some nausea with the carbidopa levodopa pills. Blood pressure is 120/70. CT scan of the head showed no stroke or acute changes. CT scan of the cervical spine showed advanced degenerative changes diffusely without cord impingement. Results & Data ([facility]) Vital Signs (Past 12 Hours) Vital Signs Temp Pulse Pulse Resp BP BP Pulse Ox 03/10/21 08:06 36.6 C 60 20 120/70 96 03/10/21 02:58 36.5 C 60 18 122/67 94 03/10/21 01:53 66 03/10/21 00:03 36.6 C 64 18 131/81 97 Exam (Neuro) Physical Exam: He is awake and alert. Speech is without aphasia or dysarthria. I do not believe he is is much masklike faces he did yesterday. He has better facial expression. Extraocular eye muscles are intact without nystagmus and there is no facial droop. His movement of his arms is improved and he does not have any dystonic posturing . There is less cogwheel rigidity in the arms compared to yesterday. His legs still have some rigidity. Strength is symmetrical. PG Care Time/CCT Total # of Minutes Spent Total Time Spent with Patient: Total time spent is greater than 50% in coordination of care (as documented) at patient's floor/unit and/or counseling patient: Coding Level of Care Code 37951 Subseq Hosp Care Lvl 3 Diagnoses Bradykinesia R25.8 Weakness R53.1 Muscle rigidity R29.898 Dementia F03.90 Dementia behavioral disturbance: without behavioral disturbance Dementia type: unspecified type Urinary incontinence R32 NPH (normal pressure hydrocephalus) G91.2 Spinal stenosis M48.00 Time Spent (min) 35 (1) Dementia Dementia behavioral disturbance: without behavioral disturbance Dementia type: unspecified type Qualified Code(s): F03.90 - Unspecified dementia without behavioral disturbance
[2021-03-10] MEDS: ONDANSETRON INJ 2 MG/ML 2 ML VIAL IV PRN (11:00)
[2021-03-10 11:24] LABS: Lyme Ab IgG w/WB Rflx Negative (Negative)
[2021-03-10 11:30] LABS: Lyme Ab IgM w/WB Rflx Positive (Negative)
[2021-03-10] MEDS ORDERED: CARBIDOPA/LEVODOP 10/100MG TAB PO SCH (14:00)
--- NOTE | 2021-03-10 14:50 | Hospitalist Progress Note ---
Date of Service March 10, 2021 Assessment & Plan (1) Muscle rigidity: Plan: exact etiology unclear Neurology on board and work-up seems consistent with parkinsonism With the positive Lyme test, [employer] Lyme can mimic and cause parkinsonism At this time, will initiate doxycycline. Case discussed with neurology who recommends 4 weeks of treatment Patient has been started on Sinemet 25/100 but is having nausea from this. Will cut dose in half as instructed by neurology and encouraged not to give with a protein load meal (2) Lyme disease: Plan: See above as outlined (3) Acute UTI: Plan: Pansensitive E. coli Started on Rocephin Transition to doxycycline for Lyme disease as outlined above. E. coli is sensitive to tetracyclines No significant symptoms to speak of (4) Weakness: Plan: PT/OT on board who is recommending home PT/OT Spoke with the daughter who reports that her and her brother plan on staying with the patient while he gets his home therapy and strength improves (5) Anxiety: Plan: Continue sertraline and Buspar as above (6) OCD (obsessive compulsive disorder): Plan: As above for anxiety (7) NPH (normal pressure hydrocephalus): Plan: Noted history of this. (8) Dementia: Plan: Increase donepezil as outlined by neuro Plan: Suspect will be ready for discharge tomorrow Admission and Anticipated Discharge Date Admission Date: March 08, 2021 Subjective Patient seen on daily rounds today. He is an 85-year-old white male with a reported history of NPH following neurology who was hospitalized with catatonia/dystonia of unknown etiology. Seen by neurology while in house who does not feel that the patient has NPH but instead suspects this is Parkinson's versus left hemispheric CVA. He was empirically started on Sinemet and his bradykinesia, masked-like facies, and cog wheeling have since shown subtle improvements. Unfortunately, he is having some mild nausea associated with the Sinemet. Other than mild nausea, he vocalizes no significant complaints or concerns. He claims that he has been able to get to and from the bathroom but still feels very unsteady. Nursing reports that therapy has been in but patient has not ambulated any great distances (more than to and from the bathroom). He lives at home with his and typically uses a walker to ambulate. When reviewing his records early this morning, I did add some extra labs (including TSH, Lyme Titer, and a B12) TSH and B12 are WNL. Lyme titer is coming back positive. Review of Systems Review of Systems: All systems reviewed and are unremarkable except as noted in HPI and below Denies fevers, chills, headache, nasal congestion, sore throat, cough, chest pain, shortness of breath, palpitations, orthopnea, PND, abdominal pain, diarrhea, constipation, dysuria, hematuria, frequency, back pain, joint pain or swelling, easy bruising or bleeding, skin lesions or rashes. Physical Exam Physical Exam: General: Resting comfortably in his hospital bed. Mild bradykinesia/bradyphonia with mild masked facies. NAD. HEENT: Head is AT/NC buccal mucosa is moist and pink Neck: No JVD. Negative hepatojugular reflex Cardiac: RRR with 1/6 VICTORIANO Lungs: CTA without W/R/R Abdomen: Normoactive X4. Soft and nontender in all quadrants. Extremities: Patient does have some cogwheeling (right>left) Neuro: A&O X4 cranial nerves II through XII are grossly intact no focal neuro deficits Skin: No obvious skin lesions or rashes Psych: Appropriate affect pleasant and cooperative Results & Data Results & Data ([facility]) Vital Signs (Past 12 Hours) Vital Signs Temp Pulse Pulse Resp BP BP Pulse Ox 03/10/21 11:57 36.3 C L 66 18 112/72 97 03/10/21 08:06 36.6 C 60 20 120/70 96 03/10/21 07:00 60 03/10/21 02:58 36.5 C 60 18 122/67 94 Laboratory Results 03/09/21 06:16 03/09/21 06:16 PG Care Time/CCT Total # of Minutes Spent Total Time Spent with Patient: Total time spent is greater than 50% in coordination of care (as documented) at patient's floor/unit and/or counseling patient: Coding [place] [address] Subseq Hosp Care Lvl 3 Patient Type Established History Comprehensive Diagnoses Muscle rigidity R29.898 Acute UTI N39.0 Weakness R53.1 Anxiety F41.9 OCD (obsessive compulsive disorder) F42.9 NPH (normal pressure hydrocephalus) G91.2 Dementia F03.90 Lyme disease A69.20
[2021-03-10] MEDS: DOXYCYCLINE HYCLATE 100 MG in DEXTROSE 5% 100 ML IV SCH (16:05)
[2021-03-10] MEDS: cefTRIAXone SODIUM 1,000 MG in DEXTROSE 5% 50 ML IV SCH (16:31)
[2021-03-10] MEDS ORDERED: SODIUM CHLORIDE 0.9% 500 ML IV SCH (19:03)
[2021-03-10] MEDS: PANTOprazole 40 MG TAB PO SCH (19:53)
[2021-03-10] MEDS: DONEPEZIL HCL 10 MG TAB PO SCH (19:54)
[2021-03-10] MEDS: POLYETHYLENE (MIRALAX) 17 GM PACK PO SCH (19:54)
[2021-03-10] MEDS ORDERED: DOXYCYCLINE HYCLATE 100 MG CAP PO SCH (21:00)
--- NOTE | 2021-03-11 00:05 | Communication Note ---
Date of Service: March 11, 2021 Contacted by bedside staff in regards to deoxygenation. Earlier this evening was having some nausea and questionable vomiting/dry heaves concern for as piration as a result of new oxygen requirement with previous baseline only required room air. Remaining vital signs stable at this time. Ordered chest x- ray as well as discussed oral care/suctioning and monitoring for continued aspiration concerns. Will try to wean off supplemental oxygen as tolerated. Resident Activity Tracking Resident Involvement: Resident Care Provided Care Provided: Adult [facility] Medicine
[2021-03-11] MEDS: ONDANSETRON INJ 2 MG/ML 2 ML VIAL IV PRN ×2 (00:16→11:38)
[2021-03-11] MEDS ORDERED: MoRPHine SULFATE 2 MG/ML CARP IV STA (00:31)
[2021-03-11] MEDS: DOXYCYCLINE HYCLATE 100 MG in DEXTROSE 5% 100 ML IV SCH ×2 (04:58→15:28)
[2021-03-11] MEDS: SERTRALINE HCL 50 MG TABLET PO SCH (07:27)
[2021-03-11] MEDS: ASPIRIN 81 MG ECTAB PO SCH (07:27)
[2021-03-11] MEDS: MULTIVITAMIN TAB PO SCH (07:27)
[2021-03-11] MEDS: CEROVITE ADV FORMULA TAB PO SCH (07:28)
[2021-03-11] MEDS: busPIRone 5 MG TAB PO SCH ×2 (07:28→20:11)
[2021-03-11] MEDS: CARBIDOPA/LEVODOPA 25/100MG TAB PO SCH ×3 (07:28→20:10)
[2021-03-11] MEDS: SERTRALINE HCL 100 MG TABLET PO SCH (07:29)
--- NOTE | 2021-03-11 07:49 | XRay Report ---
XR chest 1V portable HISTORY: Desaturation. COMPARISON: Chest 03/06/2021. FINDINGS: No pneumothorax. Pleural fusions. There are low lung volumes. The cardiac silhouette remain s normal in size. There is diffuse interstitial thickening with faint patchy peripheral airspace opac ities. This is similar to the prior study. IMPRESSION: No change in the diffuse interstitial thickening with faint patchy peripheral airspace opacities ACT 112: Negative or not required by law. Electronically signed by: Celso Martinez M.D. 03/11/2021 7:48 AM
[2021-03-11 08:18] LABS: Eosinophils # (auto) 0.04 K/uL (0-0.5); Eosinophils % (auto) 0.3 %; Hematocrit (blood only) 39.9 % (42-52); Hemoglobin 13.7 g/dL (14.0-18.0); Immature Granulocytes # (auto) 0.04 K/uL (0.00-0.02); Immature Granulocytes % (auto) 0.3 %; Lymphocytes # (auto) 0.94 K/uL (1.2-3.4); Lymphocytes % (auto) 8.1 %; Mean Corpuscular Hemoglobin 31.1 pg (25-34); Mean Corpuscular Hgb Conc 34.3 g/dL (32-36); Mean Corpuscular Volume 90.5 fL (80-100); Mean Platelet Volume 9.3 fL (7.4-10.4); Monocytes # (auto) 1.17 K/uL (0.11-0.59); Monocytes % (auto) 10.1 %; Neutrophils % (auto) 81.2 %; Platelet Count 189 K/uL (130-400); RDW Standard Deviation 46.8 fL (36.4-46.3); Red Blood Count 4.41 M/uL (4.7-6.1); White Blood Count 11.59 K/uL (4.8-10.8)
[2021-03-11 08:45] LABS: BUN Creatinine Ratio 15.3 (10-20); Calcium 9.1 mg/dl (8.5-10.1); Creatinine Clr Calc Pharmacy 70.2 ml/min; Est GFR (African American) 94.7 ml/min; Est GFR (Non-African American) 81.7 ml/min; Magnesium 2.1 mg/dl (1.8-2.4); Potassium 3.9 mmol/L (3.5-5.1)
--- NOTE | 2021-03-11 14:55 | Hospitalist Progress Note ---
Date of Service March 11, 2021 Assessment & Plan (1) Nausea and vomiting: Plan: exact etiology uncertain. 2nd UTI? 2nd to med side effect (sinemet, doxy, aricept)? lung process? other? I obtained KUB x-ray - decent amount of distal stool - will give dulcolax suppos and see if moving bowels helps with this. re-eval in am. (2) Muscle rigidity: Plan: Dr Mcnally's consultation much appreciated. He sees features of a Parkinson's disease or parkinsonian state on examination. Sinemet has been initiated but some concern that #1 could be due to such. Dose cut in 05/26 to see if this improves the N/V. Serial exams. Will need neuro f/u post-d/c. (3) Lyme disease: Plan: ? of. IgM screen +. IgG screen negative. patient has had no exposures or significant outdoor activity. this could be a false positive. await Western Blot for confirmation. doxy in meantime. even if he has Lyme I do not believe it is contributing to current state. (4) Acute UTI: Plan: Pansensitive E. coli first day of Rx 03/08 (rocephin given in ER) has had additional rocephin since, then doxy will add back rocephin as I'm uncertain if doxy will truly cover the e.coli additionally rocephin will add coverage for lungs if there is indeed any pneumonia process will need SHLOMO to r/o prostatitis (5) Weakness: Plan: likely multifactorial cont PT/OT treat UTI, treat ?lyme, etc (6) Anxiety: Plan: Continue sertraline and Buspar (7) OCD (obsessive compulsive disorder): Plan: As above for anxiety (8) NPH (normal pressure hydrocephalus): Plan: s/p 3rd ventriculostomy procedure in the last year no significant improvement in overall constitution, however, since the procedure per history (9) Dementia: Plan: aricept 10mg HS this can cause GI upset if GI symptoms persist consider holding or reducing the dose back (10) Abnormal chest x-ray: Plan: developing ILD/PF? developing pneumonia? chronic aspiration? other? consider CT chest for more detail/info o2 sats wnl on rocephin/doxy in the event he has a pneumonia (11) Dysphagia: Plan: speech eval requested (12) Parkinsonian features: Plan: see #2 above (13) Hyponatremia: Plan: appears chronic for several years 2nd to SSRI? SIADH? (14) DVT prophylaxis: Plan: add lovenox 40mg daily Plan: extensive update given to daughter by phone this evening Admission and Anticipated Discharge Date Admission Date: March 10, 2021 Subjective patient confused during the visit he could not figure out how to operate his TV remote he was frustrated that he could not figure out how to call his family (apparently nursing helped him call his family earlier in the day - he did not recall this) he denied any specific complaints and could not offer much meaningful history denied pain in any location staff report poor oral intake, nausea, and small amount of emesis this am about 0800 (pre-breakfast) spoke with daughter - she reports he has a cough at home, and at times he does have swallowing difficulty Review of Systems Review of Systems: Unobtainable due to cognitive status Physical Exam Physical Exam: gen - NAD, confused mouth - MM slightly dry neck - no JVD heart - RRR, s1 s2 lungs - minimal dry rales bases, cta b/l otherwise abd - soft, NT, ND, BS+, no HSM ext - no edema neuro - rigidity noted of limbs, masked facies psych - a/o to person and place but not time Results & Data Results & Data ([facility]) Vital Signs (Past 12 Hours) Vital Signs Temp Pulse Resp BP Pulse Ox 03/11/21 05:21 36.5 C 94 H 15 145/79 H 96 Laboratory Results Laboratory Results - last 24 hr 03/11/21 03/11/21 03/11/21 07:29 07:29 17:32 WBC 11.59 H RBC 4.41 L Hgb 13.7 L Hct 39.9 L MCV 90.5 MCH 31.1 MCHC 34.3 RDW Std Deviation 46.8 H RDW Coeff of Bambi 14.0 Plt Count 189 MPV 9.3 Immature Gran % (Auto) 0.3 Neut % (Auto) 81.2 Lymph % (Auto) 8.1 [place] % (Auto) 10.1 Eos % (Auto) 0.3 Baso % (Auto) 0.0 Neut # (Auto) 9.40 H Lymph # (Auto) 0.94 L [place] # (Auto) 1.17 H Eos # (Auto) 0.04 Baso # (Auto) 0.00 Immature Gran # (Auto) 0.04 H Sodium 132 L Potassium 3.9 Chloride 97 L Carbon Dioxide 29 Anion Gap 6.0 BUN 12 Creatinine 0.78 Est Cr Clr Drug Dosing 70.2 Est GFR ( Amer) 94.7 Est GFR (Non-Af Amer) 81.7 BUN/Creatinine Ratio 15.3 Glucose 117 H POC Glucose 136 H Calcium 9.1 Magnesium 2.1 Diagnostic Findings urine cx - e.coli - pansensitive PG Care Time/CCT Total # of Minutes Spent Total Time Spent with Patient: Total time spent is greater than 50% in coordination of care (as documented) at patient's floor/unit and/or counseling patient: Coding Level of Care Code 49047 Subseq Hosp Care Lvl 3 Diagnoses Muscle rigidity R29.898 Lyme disease A69.20 Acute UTI N39.0 Weakness R53.1 Anxiety F41.9 OCD (obsessive compulsive disorder) F42.9 NPH (normal pressure hydrocephalus) G91.2 Dementia F03.90 Nausea and vomiting R11.2 Abnormal chest x-ray R93.89 Dysphagia R13.10 DVT prophylaxis Z29.9 Parkinsonian features R25.9 Hyponatremia E87.1
--- NOTE | 2021-03-11 16:20 | XRay Report ---
XR chest 2V PA/lateral CLINICAL HISTORY: ?pneumonia vs ILD? COMPARISON STUDY: Chest radiograph March 10, 2021. Chest radiograph February 22, 2018. FINDINGS: Lung volumes are mildly diminished. This is unchanged. There is no pneumothorax or pleural effusion. Interstitial thickening and bilateral opacities have slightly increased. A 2.7 cm right sup rahilar density is noted. Cardiomediastinal silhouette is stable. IMPRESSION: 1. Interstitial thickening and mild bilateral opacities which have progressed. The findings favor an infectious process or pulmonary edema superimposed upon interstitial lung disease. 2. 2.7 cm right suprahilar density. This may reflect airspace disease. However, radiographic follow-u p to ensure resolution and exclude the possibility of an underlying pulmonary nodule is recommended. ACT 112: Negative or not required by law. Electronically signed by: Ross Guerin M.D. 03/11/2021 4:19 PM
--- NOTE | 2021-03-11 16:28 | XRay Report ---
XR KUB/Abdomen 1 view CLINICAL HISTORY: nausea; fecal impaction/constipation?? TECHNIQUE: 1 view of the abdomen was obtained. Comparison: None available at the time of this dictation. FINDINGS: Multiple surgical clips are seen in the pelvis. Lung bases are unremarkable. The osseous structures a re grossly unremarkable. The bowel gas pattern is nonobstructive. A moderate amount of stool is noted within the large bowel. IMPRESSION: No evidence of fecal impaction. Moderate stool burden is seen. ACT 112: Negative or not required by law. Electronically signed by: Suhas Maynrad M.D. 03/11/2021 4:27 PM
[2021-03-11] MEDS ORDERED: bisacodyL 10 MG SUPP PR STA (17:26)
[2021-03-11] MEDS: PANTOprazole 40 MG TAB PO SCH (20:09)
[2021-03-11] MEDS: DONEPEZIL HCL 10 MG TAB PO SCH (20:09)
[2021-03-11] MEDS: POLYETHYLENE (MIRALAX) 17 GM PACK PO SCH (20:18)
[2021-03-11] MEDS ORDERED: ENOXAPARIN INJ 40 MG/0.4 ML SYR SQ ONE (21:00)
[2021-03-11] MEDS: cefTRIAXone SODIUM 2,000 MG in DEXTROSE 5% 50 ML IV SCH (21:18)
[2021-03-12] MEDS: DOXYCYCLINE HYCLATE 100 MG in DEXTROSE 5% 100 ML IV SCH ×2 (04:00→15:48)
[2021-03-12 06:37] LABS: Hemoglobin 13.4 g/dL (14.0-18.0); Mean Corpuscular Hemoglobin 31.9 pg (25-34); Mean Corpuscular Hgb Conc 35.3 g/dL (32-36); Mean Corpuscular Volume 90.5 fL (80-100); Mean Platelet Volume 9.2 fL (7.4-10.4); Platelet Count 159 K/uL (130-400); RDW Coefficient of Variation 13.8 % (11.5-14.5); RDW Standard Deviation 45.7 fL (36.4-46.3); White Blood Count 9.19 K/uL (4.8-10.8)
[2021-03-12 07:14] LABS: BUN Creatinine Ratio 17.9 (10-20); Calcium 8.5 mg/dl (8.5-10.1); Est GFR (African American) 96.3 ml/min; Est GFR (Non-African American) 83.1 ml/min; Potassium 3.7 mmol/L (3.5-5.1)
[2021-03-12] MEDS: busPIRone 5 MG TAB PO SCH ×2 (07:24→20:34)
[2021-03-12] MEDS: ENOXAPARIN INJ 40 MG/0.4 ML SYR SQ SCH (07:24)
[2021-03-12] MEDS: MULTIVITAMIN TAB PO SCH (07:25)
[2021-03-12] MEDS: CARBIDOPA/LEVODOPA 25/100MG TAB PO SCH ×2 (07:26→13:06)
[2021-03-12] MEDS: SERTRALINE HCL 50 MG TABLET PO SCH (07:28)
[2021-03-12] MEDS: ASPIRIN 81 MG ECTAB PO SCH (07:29)
[2021-03-12] MEDS: CEROVITE ADV FORMULA TAB PO SCH (07:29)
[2021-03-12] MEDS: SERTRALINE HCL 100 MG TABLET PO SCH (07:30)
[2021-03-12] MEDS: ONDANSETRON INJ 2 MG/ML 2 ML VIAL IV PRN ×2 (12:18→19:49)
[2021-03-12] MEDS: cefTRIAXone SODIUM 2,000 MG in DEXTROSE 5% 50 ML IV SCH (20:34)
[2021-03-12] MEDS: PANTOprazole 40 MG TAB PO SCH (20:34)
[2021-03-12] MEDS: POLYETHYLENE (MIRALAX) 17 GM PACK PO SCH (20:35)
--- NOTE | 2021-03-12 21:40 | Hospitalist Progress Note ---
Date of Service March 12, 2021 Assessment & Plan (1) Nausea and vomiting: Plan: exact etiology uncertain but according to this started in the hospital 2nd to med side effect (sinemet, doxy, aricept)? no improvement with Rx of constipation. if medication will HOLD aricept (dose was increased to 10mg this admit); HOLD sinemet (added this admission). re-eval in am. recent head CT without signs of increased ICP. (2) Altered taste: Plan: started when he had ventriculostomy earlier this year. uncertain why this would have caused altered taste/smell. he has never had clinical COVID to family's knowledge. CT head without sinusitis. will check FT4, cortisol to be complete. (3) Muscle rigidity: Plan: Dr cMnally's consultation much appreciated. He sees features of a Parkinson's disease or parkinsonian state on examination. Sinemet has been initiated but some concern that #1 could be due to such. Despite cutting dose in 1/2 no improvement in N/V. Thus, will hold sinemet completely starting tonight. (4) Lyme disease: Plan: ? of. IgM screen +. IgG screen negative. awaiting western blot. if western blot negative - d/c doxy. (5) Acute UTI: Plan: Pansensitive E. coli first day of Rx /15 (rocephin given in ER) thus, day #5 of Rx plan 7 days of Rx unless SHLOMO suggests acute prostatitis (6) Weakness: Plan: likely multifactorial cont PT/OT treat UTI, treat ?lyme, etc (7) Anxiety: Plan: Continue sertraline and Buspar (8) OCD (obsessive compulsive disorder): Plan: As above for anxiety (9) NPH (normal pressure hydrocephalus): Plan: s/p 3rd ventriculostomy procedure in the last year no significant improvement in overall constitution, however, since the procedure per history (10) Dementia: Plan: aricept 10mg HS (was increased from 5-->10mg this admission) this can cause GI upset will hold aricept completely (along with sinemet) to see if N/V improve (11) Abnormal chest x-ray: Plan: developing ILD/PF? developing pneumonia? chronic aspiration? other? consider CT chest for more detail/info o2 sats wnl on rocephin/doxy in the event he has a pneumonia (12) Dysphagia: Plan: speech eval requested (13) Parkinsonian features: Plan: see #2 above (14) Hyponatremia: Plan: appears chronic for several years 2nd to SSRI? SIADH? (15) DVT prophylaxis: Plan: lovenox 40mg daily Plan: extensive update given to at bedside Admission and Anticipated Discharge Date Admission Date: March 10, 2021 Subjective during my rounds pt's at bedside she provides most history states that since his ventriculostomy earlier this year he has had loss of taste/smell appetite has been suboptimal since, but really got bad in the days leading up to this admission per her report it almost seems like he has food aversion he has lost weight albeit <10 pounds over the summer he is still confused - no worse than prior due to confusion/dementia -- he cannot offer any meaningful history per staff he again had nausea intermittently requiring zofran did not eat well today Review of Systems Review of Systems: Unobtainable due to cognitive status Physical Exam Physical Exam: gen - NAD, confused but no different than yesterday's exam mouth - MMM neck - no JVD heart - RRR, s1 s2 lungs - mild dry rales bases, cta b/l otherwise abd - soft, NT, ND, BS+, no HSM ext - no edema, pulses 2+ b/l neuro - rigidity noted of limbs, masked facies Results & Data Results & Data ([facility]) Vital Signs (Past 12 Hours) Vital Signs Temp Pulse Resp BP Pulse Ox 03/12/21 14:59 36.8 C 75 18 121/70 95 Laboratory Results Laboratory Results - last 24 hr 03/12/21 03/12/21 06:18 06:18 WBC 9.19 RBC 4.20 L Hgb 13.4 L Hct 38.0 L MCV 90.5 MCH 31.9 MCHC 35.3 RDW Std Deviation 45.7 RDW Coeff of Bambi 13.8 Plt Count 159 MPV 9.2 Sodium 130 L Potassium 3.7 Chloride 96 L Carbon Dioxide 29 Anion Gap 5.0 BUN 14 Creatinine 0.75 Est Cr Clr Drug Dosing 73.0 Est GFR ( Amer) 96.3 Est GFR (Non-Af Amer) 83.1 BUN/Creatinine Ratio 17.9 Glucose 110 H Calcium 8.5 PG Care Time/CCT Total # of Minutes Spent Total Time Spent with Patient: Total time spent is greater than 50% in coordination of care (as documented) at patient's floor/unit and/or counseling patient: Coding Level of Care Code 30024 Subseq Hosp Care Lvl 2 Diagnoses Nausea and vomiting R11.2 Muscle rigidity R29.898 Lyme disease A69.20 Acute UTI N39.0 Weakness R53.1 Anxiety F41.9 OCD (obsessive compulsive disorder) F42.9 NPH (normal pressure hydrocephalus) G91.2 Dementia F03.90 Abnormal chest x-ray R93.89 Dysphagia R13.10 Parkinsonian features R25.9 Hyponatremia E87.1 DVT prophylaxis Z29.9 Altered taste R43.2
[2021-03-13 02:12] LABS: 18KDIGG Band NON-REACTIVE; 23KDIGG Band NON-REACTIVE; 23KDIGM Band REACTIVE; 28KDIGG Band NON-REACTIVE; 30KDIGG Band NON-REACTIVE; 39KDIGG Band NON-REACTIVE; 39KDIGM Band NON-REACTIVE; 41KDIGG Band REACTIVE; 41KDIGM Band NON-REACTIVE; 45KDIGG Band NON-REACTIVE; 58KDIGG Band NON-REACTIVE; 66KDIGG Band NON-REACTIVE; 93KDIGG Band REACTIVE; Lyme Antibodies, WB IgG NEGATIVE (NEGATIVE); Lyme Antibodies, WB IgM NEGATIVE (NEGATIVE)
[2021-03-13] MEDS: DOXYCYCLINE HYCLATE 100 MG in DEXTROSE 5% 100 ML IV SCH ×2 (03:56→16:21)
[2021-03-13] MEDS: ASPIRIN 81 MG ECTAB PO SCH (08:21)
[2021-03-13] MEDS: ENOXAPARIN INJ 40 MG/0.4 ML SYR SQ SCH (08:22)
[2021-03-13] MEDS: busPIRone 5 MG TAB PO SCH ×2 (08:22→19:41)
[2021-03-13] MEDS: MULTIVITAMIN TAB PO SCH (08:22)
[2021-03-13] MEDS: CEROVITE ADV FORMULA TAB PO SCH (08:22)
[2021-03-13] MEDS: SERTRALINE HCL 50 MG TABLET PO SCH (08:22)
[2021-03-13] MEDS: SERTRALINE HCL 100 MG TABLET PO SCH (08:22)
[2021-03-13] MEDS: ONDANSETRON INJ 2 MG/ML 2 ML VIAL IV PRN (08:34)
[2021-03-13 09:04] LABS: BUN Creatinine Ratio 13.7 (10-20); Calcium 8.5 mg/dl (8.5-10.1); Creatinine Clr Calc Pharmacy 67.6 ml/min; Est GFR (African American) 93.3 ml/min; Est GFR (Non-African American) 80.5 ml/min; Potassium 3.5 mmol/L (3.5-5.1)
[2021-03-13 09:08] LABS: T4 Free Thyroxine 0.98 ng/dl (0.8-1.6)
[2021-03-13] MEDS: PANTOprazole 40 MG TAB PO SCH (19:41)
[2021-03-13] MEDS: POLYETHYLENE (MIRALAX) 17 GM PACK PO SCH (19:42)
[2021-03-13] MEDS: cefTRIAXone SODIUM 2,000 MG in DEXTROSE 5% 50 ML IV SCH (20:35)
--- NOTE | 2021-03-13 21:10 | Hospitalist Progress Note ---
Date of Service March 13, 2021 Assessment & Plan (1) Nausea and vomiting: Plan: suspect 2nd to med side effect uncertain if aricept or the sinemet as aricept dose was increased to 10mg at the same time as initiation of sinemet continue to hold both consider re-introducing the aricept tomorrow albeit at lower dose of 5mg (2) Muscle rigidity: Plan: Dr Mcnally's consultation much appreciated. He sees features of a Parkinson's disease or parkinsonian state on examination. Sinemet had been initiated but some concern that #1 could be due to such. Holding sinemet for now. (3) Lyme disease: Plan: ruled out western blot negative can d/c doxy (4) Acute UTI: Plan: Pansensitive E. 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 developing pneumonia? he has had NO PULMONARY SYMPTOMS during the stay thus, cxr findings likely chronic doubt pneumonia (11) Dysphagia: Plan: question of speech eval requested and they are following (12) Parkinsonian features: Plan: see #2 above (13) Hyponatremia: Plan: appears chronic for several years suspect 2nd to SSRI with development of low-grade SIADH possible NPH could cause SIADH as well (14) DVT prophylaxis: Plan: lovenox 40mg daily (15) Altered taste: Plan: started when he had ventriculostomy earlier this year. uncertain why this would have caused altered taste/smell. he has never had clinical COVID to family's knowledge. CT head without sinusitis. TSH, FT4, cortisol wnl. uncertain etiology Plan: extensive update given to daughter and by phone this evening Admission and Anticipated Discharge Date Admission Date: March 10, 2021 Subjective staff report that he has had no emesis today no specific complaint of nausea from the patient today, also per staff only needed 1 dose of zofran this am ate 25% of breakfast/lunch per flowsheets during the visit he was the same as yesterday Review of Systems Review of Systems: Unobtainable due to cognitive status Physical Exam Physical Exam: gen - NAD, confused but no different than previous visits mouth - MMM neck - no JVD heart - RRR, s1 s2 lungs - bibasilar dry rales abd - soft, NT, ND, BS+, no HSM ext - no edema, pulses 2+ b/l psych - a/o x 2 only Results & Data Results & Data ([facility]) Vital Signs (Past 12 Hours) Vital Signs Temp Pulse Resp BP Pulse Ox 03/13/21 15:09 37.0 C 64 18 127/74 96 Laboratory Results Laboratory Results - last 24 hr 03/10/21 03/13/21 03/13/21 09:55 08:16 08:16 Sodium 131 L Potassium 3.5 Chloride 96 L Carbon Dioxide 31 Anion Gap 4.0 BUN 11 Creatinine 0.81 Est Cr Clr Drug Dosing 67.6 Est GFR ( Amer) 93.3 Est GFR (Non-Af Amer) 80.5 BUN/Creatinine Ratio 13.7 Glucose 108 H Calcium 8.5 Free T4 0.98 Cortisol AM Sample 21.99 Lyme IgG (Western Blot) NEGATIVE Lyme IgG 18 kDa Band NON-REACTIVE Lyme IgG 23 kDa Band NON-REACTIVE Lyme IgG 28 kDa Band NON-REACTIVE Lyme IgG 30 kDa Band NON-REACTIVE Lyme IgG 39 kDa Band NON-REACTIVE Lyme IgG 41 kDa Band REACTIVE A Lyme IgG 45 kDa Band NON-REACTIVE Lyme IgG 58 kDa Band NON-REACTIVE Lyme IgG 66 kDa Band NON-REACTIVE Lyme IgG 93 kDa Band REACTIVE A Lyme IgM Ab (WB) NEGATIVE Lyme IgM 23 kDa Band REACTIVE A Lyme IgM 39 kDa Band NON-REACTIVE Lyme IgM 41 kDa Band NON-REACTIVE PG Care Time/CCT Total # of Minutes Spent Total Time Spent with Patient: Total time spent is greater than 50% in coordination of care (as documented) at patient's floor/unit and/or counseling patient: Coding Level of Care Code 72790 Subseq Hosp Care Lvl 3 Diagnoses Nausea and vomiting R11.2 Muscle rigidity R29.898 Lyme disease A69.20 Acute UTI N39.0 Weakness R53.1 Anxiety F41.9 OCD (obsessive compulsive disorder) F42.9 NPH (normal pressure hydrocephalus) G91.2 Dementia F03.90 Abnormal chest x-ray R93.89 Dysphagia R13.10 Parkinsonian features R25.9 Hyponatremia E87.1 DVT prophylaxis Z29.9 Altered taste R43.2
[2021-03-14] MEDS: MELATONIN 3 MG TAB PO PRN (01:06)
[2021-03-14] MEDS: DOXYCYCLINE HYCLATE 100 MG in DEXTROSE 5% 100 ML IV SCH (03:50)
[2021-03-14 08:45] LABS: Calcium 8.9 mg/dl (8.5-10.1); Creatinine Clr Calc Pharmacy 81.7 ml/min; Est GFR (African American) 100.8 ml/min; Potassium 3.6 mmol/L (3.5-5.1)
[2021-03-14] MEDS: CEROVITE ADV FORMULA TAB PO SCH (08:53)
[2021-03-14] MEDS: busPIRone 5 MG TAB PO SCH ×2 (08:53→21:03)
[2021-03-14] MEDS: SERTRALINE HCL 100 MG TABLET PO SCH (08:54)
[2021-03-14] MEDS: ASPIRIN 81 MG ECTAB PO SCH (08:55)
[2021-03-14] MEDS: SERTRALINE HCL 50 MG TABLET PO SCH (08:55)
[2021-03-14] MEDS: ENOXAPARIN INJ 40 MG/0.4 ML SYR SQ SCH (08:56)
[2021-03-14] MEDS: ONDANSETRON INJ 2 MG/ML 2 ML VIAL IV PRN ×2 (11:37→17:05)
--- NOTE | 2021-03-14 11:43 | Neurology Progress Note ---
Date of Service March 14, 2021 Assessment & Plan (1) NPH (normal pressure hydrocephalus): (2) Parkinsonian features: Plan: Although patient has been felt to have normal pressure hydrocephalus given symptoms/clinical history, examination and imaging findings, and modest response to high-volume lumbar puncture, he did not respond favorably to a third ventriculostomy procedure done with neurosurgery at [facility]. Furthermore, he has begun to exhibit unusual episodes of muscular stiffness, dystonia which may suggest atypical parkinsonism. He is bradykinetic but does not have a resting tremor. He did not tolerate a recent trial of Sinemet due to nausea and retching although his dosage of donepezil had also been recently increased. At this point, would recommend remaining off both of these medications. Would recommend a trial of ropinirole, will start with a low dose, 0.25 mg taken twice daily. Would increase gradually depending on response and tolerability. The patient does not tolerate ropinirole would consider a trial of the Neupro patch. However, dopamine agonists as a category have the potential to trigger nausea. An alternative option may be to try Cogentin. Cogentin would not typically trigger nausea or vomiting but does have the potential to worsen cognitive symptoms. Nonetheless, patient's episodes of muscular stiffness and dystonia seem to be more problematic than his cognitive decline and it may be worth while to try Cogentin if he does not tolerate dopamine agonists. Admission and Anticipated Discharge Date Admission Date: March 10, 2021 Subjective Follow-up for dystonia/dyskinesia Patient's daughter had contacted the office asking for an update regarding her father's condition. She was at bedside at the time of my assessment of him today. I last evaluated this patient in clinic on March 07, 2021 for normal pressure hydrocephalus, status post third ventriculostomy procedure last month at [facility]. Unfortunately, this procedure did not result in significant improvement in his gait. He began exhibiting episodes of freezing or locking up, stiffness of the limbs, inability to move, stand and walk, typically in the morning. The etiology of these episodes was not entirely clear although the possibility of an atypical parkinsonian syndrome was considered. As he had already been started on donepezil prior to my last assessment of him I had recommended increasing the dosage of this medication to 10 mg at bedtime with the consideration to potentially start Sinemet going forward. He was seen in the emergency department the following day for an episode of prolonged weakness/dystonia and was subsequently admitted for further evaluation and management. He was seen in consultation with Dr. Mcnally on March 09, a trial of Sinemet was recommended. However, he did not tolerate levodopa well due to nausea, vomiting and dry heaves, this medication was subsequently discontinued. Aricept was placed on hold as well. This morning, the patient is alert but somewhat inattentive, not very talkative, mildly bradykinetic, no resting tremor. Review of Systems Gastrointestinal: as per Subjective / HPI and + nausea Musculoskeletal: + muscle weakness Neurologic: + gait abnormality; no tremor(s) Results & Data ([facility]) Vital Signs (Past 12 Hours) Vital Signs Temp Pulse Resp BP Pulse Ox 03/14/21 07:43 36.7 C 74 17 138/79 95 Exam (Neuro) Physical Exam: Limited examination this morning. Frail, no acute distress. Patient is bradykinetic, not very talkative, speech soft, no resting tremor. Oriented to person and place only. Intact comprehension of vocabulary. Observed patient sitting up on bedside commode. Ocular motility normal. No facial droop. Neurologic: Oriented to:: Time Coding Level of Care Code 02828 Subseq Hosp Care Lvl 2 Diagnoses NPH (normal pressure hydrocephalus) G91.2 Parkinsonian features R25.9
[2021-03-14] MEDS ORDERED: OPTIRAY 320 100ml IV ONE (17:31)
--- NOTE | 2021-03-14 17:48 | CT Scan Report ---
ABDOMEN AND PELVIS CT WITH IV CONTRAST CT DOSE: 555.87 mGycm HISTORY: persistent vomiting, eval for intra-abd process TECHNIQUE: Multiaxial CT images of the abdomen and pelvis were performed following the use of intrave nous contrast. A dose lowering technique was utilized adhering to the principles of ALARA. COMPARISON STUDY: None. FINDINGS: Moderate fibrotic change within the lung bases. No pneumoperitoneum. No pneumatosis. Trace subcutaneous gas within the left lower quadrant abdominal wall is likely due to prior medication inje ction. There are old, healed left posterior rib fractures. No suspicious lytic or blastic osseous les ions. There is a small diverticulum at the second portion of the duodenum. A 1.1 cm hypodense lesion within the left hepatic lobe. This likely represents a cyst. The gallbladder, pancreas, spleen, and a drenal glands are unremarkable. There is mild bilateral perinephric edema. This is likely chronic. Th e kidneys enhance normally. No hydronephrosis. No retroperitoneal lymphadenopathy. Normal caliber abd ominal aorta. No pelvic free fluid or pelvic lymphadenopathy. Prior prostatectomy. Mild asymmetric th ickening within the left side of the bladder wall. Colonic diverticulosis. No evidence for acute dive rticulitis. No bowel wall thickening or obstruction. Normal appendix. IMPRESSION: 1. No bowel wall thickening or obstruction. 2. Normal appendix. 3. No hydronephrosis. 4. Moderate fibrotic change at the lung bases. 5. Colonic diverticulosis. No evidence for acute diverticulitis. 6. Mild nonspecific asymmetric thickening within the left side of the bladder wall. ACT 112: Negative or not required by law. Electronically signed by: Celso Martinez M.D. 03/14/2021 5:47 PM
[2021-03-14] MEDS: rOPINIRole HCL 0.25 MG TABLET PO SCH (21:01)
[2021-03-14] MEDS: PANTOprazole 40 MG TAB PO SCH (21:02)
[2021-03-14] MEDS: POLYETHYLENE (MIRALAX) 17 GM PACK PO SCH (21:02)
[2021-03-14] MEDS: SUCRALFATE 1 GM/10 ML UDC PO SCH (21:03)
--- NOTE | 2021-03-14 21:26 | Hospitalist Progress Note ---
Date of Service March 14, 2021 Assessment & Plan (1) Nausea and vomiting: Plan: uncertain etiology initially thought to be med side effects (sinemet, aricept, etc) however, still w/ N/V despite stopping those meds several days ago has had adequate Rx for UTI thus doubt such recent KUB with mild constipation but no ileus/SBO CT head without pathology I ordered CT abd/pelvis - no specific etiology found I went ahead and added carafate QID to his PPI will consult GI in am - need for EGD? other? (2) Muscle rigidity: Plan: Dr Mcnally's consultation much appreciated. Dr Scott's suggestions appreciated They see features of a Parkinson's disease or parkinsonian state on examination. Sinemet on hold due to ?GI side effects aricept on hold start requip 0.25mg BID (3) Lyme disease: Plan: ruled out western blot negative d/c doxy (4) Acute UTI: Plan: Pansensitive E. coli completed 7 days of Rx needs SHLOMO to r/o prostatitis (5) Weakness: Plan: likely multifactorial cont PT/OT (6) Anxiety: Plan: Continue sertraline and Buspar (7) OCD (obsessive compulsive disorder): Plan: As above for anxiety (8) NPH (normal pressure hydrocephalus): Plan: s/p 3rd ventriculostomy procedure in the last year no significant improvement in overall constitution, however, since the procedure per history (9) Dementia: Plan: at baseline holding aricept for now (concern that dose increase caused Nausea?) cont holding (10) Abnormal chest x-ray: Plan: cxr and lung cuts from CT a/p today with findings suggestive of PF nothing to do at this time O2 sats wnl no symptoms pulm referral post-d/c (11) Dysphagia: Plan: question of speech eval requested and they are following (12) Parkinsonian features: Plan: see #2 above (13) Hyponatremia: Plan: appears chronic for several years suspect 2nd to SSRI with development of low-grade SIADH possible NPH could cause SIADH as well (14) DVT prophylaxis: Plan: lovenox 40mg daily (15) Altered taste: Plan: started when he had ventriculostomy earlier this year. uncertain why this would have caused altered taste/smell. he has never had clinical COVID to family's knowledge. CT head without sinusitis. TSH, FT4, cortisol wnl. uncertain etiology GERD? other?? Plan: extensive update given to daughter by phone once again this evening Admission and Anticipated Discharge Date Admission Date: March 10, 2021 Subjective patient was speaking on the phone with his daughter while I was on rounds during my visit she remained on the phone to hear our conversation patient quite talkative today - even smiled once - denied complaints only had emesis x 1 today - it was about 11-1130am it was not food - just clear liquid/phlegm he tolerated lunch fine and dinner no other issues per staff I then spoke with his daughter by phone later in the evening - mentioned that the family has always been suspicious he has had reflux as he "always has bad breath" and things don't taste or smell right Review of Systems Review of Systems: gen - feels good, appetite is better pulm - no dyspnea or cough CV - no cp GI - no abd pain Physical Exam Physical Exam: gen - NAD, confused, but more sprightly today and smiling mouth - MMM neck - no JVD heart - RRR, s1 s2 lungs - bibasilar dry rales unchanged abd - soft, NT, ND, BS+, no HSM ext - no edema, pulses 2+ b/l psych - a/o x 2 only Results & Data Results & Data ([facility]) Vital Signs (Past 12 Hours) Vital Signs Temp Pulse Resp BP Pulse Ox 03/14/21 16:16 37.0 C 76 18 116/70 95 Laboratory Results Laboratory Results - last 24 hr 03/14/21 03/14/21 08:00 08:00 Sodium 130 L Potassium 3.6 Chloride 95 L Carbon Dioxide 29 Anion Gap 6.0 BUN 10 Creatinine 0.67 Est Cr Clr Drug Dosing 81.7 Est GFR ( Amer) 100.8 Est GFR (Non-Af Amer) 87.0 BUN/Creatinine Ratio 15.0 Glucose 110 H Calcium 8.9 Folate > 20.00 PG Care Time/CCT Total # of Minutes Spent Total Time Spent with Patient: Total time spent is greater than 50% in coordination of care (as documented) at patient's floor/unit and/or counseling patient: Coding Level of Care Code 87452 Subseq Hosp Care Lvl 3 Diagnoses Nausea and vomiting R11.2 Muscle rigidity R29.898 Lyme disease A69.20 Acute UTI N39.0 Weakness R53.1 Anxiety F41.9 OCD (obsessive compulsive disorder) F42.9 NPH (normal pressure hydrocephalus) G91.2 Dementia F03.90 Abnormal chest x-ray R93.89 Dysphagia R13.10 Parkinsonian features R25.9 Hyponatremia E87.1 DVT prophylaxis Z29.9 Altered taste R43.2
[2021-03-15] MEDS: busPIRone 5 MG TAB PO SCH ×2 (09:19→19:53)
[2021-03-15] MEDS: CEROVITE ADV FORMULA TAB PO SCH (09:20)
[2021-03-15] MEDS: ENOXAPARIN INJ 40 MG/0.4 ML SYR SQ SCH (09:20)
[2021-03-15] MEDS: SERTRALINE HCL 100 MG TABLET PO SCH (09:20)
[2021-03-15] MEDS: rOPINIRole HCL 0.25 MG TABLET PO SCH ×2 (09:20→19:53)
[2021-03-15] MEDS: ASPIRIN 81 MG ECTAB PO SCH (09:21)
[2021-03-15] MEDS: SUCRALFATE 1 GM/10 ML UDC PO SCH ×4 (09:21→19:53)
[2021-03-15] MEDS: SERTRALINE HCL 50 MG TABLET PO SCH (09:21)
--- NOTE | 2021-03-15 09:28 | Gastrointestinal Consultation ---
Date of Consultation March 15, 2021 Assessment & Plan (1) Nausea and vomiting: -EGD not possible as patient was given a breakfast tray this morning. Fortunately, there is no emergent need for endoscopic evaluation and this can be done in an outpatient setting. -Protonix 40 mg daily. -Zofran 4 mg q 6 hr prn. -Follow-up in the office for further evaluation and recommendations. Supervising Physician Co-Signing Physician Notes I personally evaluated the patient and agree with the findings as documented by ASHLEY Gonzalez Exam: abd: soft, nt, nd outpatient EGD to further evaluate symptoms History of Present Illness Reason for Consultation: Nausea & vomiting Attending Physician: Josiah Butler History of Present Illness Patient is an 85 yo male with dementia who is hospitalized due to UTI and muscle rigidity. GI was consulted to consider an EGD due to nausea & vomiting. He has a history of dementia and admits he's not a great historian and is unsure of the circumstances with his nausea & vomiting. He denies abdominal pain, n/v, heartburn or reflux at present. He thinks he may have had an EGD 20+ years ago. He is eating breakfast at the time of our evaluation. Allergies Allergy/AdvReac Type Severity Reaction Status Date / Time No Known Allergies Allergy Unverified 03/08/21 11:02 Home Medications Medication Instructions Recorded Confirmed Type [id number]-jlf-mkwld acid 300 1 tab PO QAM 02/17/18 03/08/21 History mcg-lycopene 600 mcg-lutein 300 mcg tablet (Centrum Silver Men) polyethylene glycol 3350 17 1 dose PO QPM 02/17/18 03/08/21 History gram/dose oral powder (Miralax) ibuprofen 200 mg tablet (Advil) 200 mg PO UD PRN MDD fever/pain 08/10/20 03/08/21 History aspirin 81 mg tablet,delayed 81 mg PO QAM 02/07/21 03/08/21 History release vit C-vit M-ppwowg-hubk ox-lutein 1 cap PO BID 02/07/21 03/08/21 History 226 mg-200 unit-5 mg-0.8 mg capsule (PreserVision Lutein) buspirone 5 mg tablet 2.5 mg PO BID 02/14/21 03/08/21 History sertraline 100 mg tablet 100 mg PO QAM 02/14/21 03/08/21 History sertraline 25 mg tablet 25 mg PO QAM 02/14/21 03/08/21 History cetirizine 10 mg tablet (Zyrtec) 10 mg PO HS 03/08/21 03/08/21 History donepezil 10 mg tablet 5 mg PO HS 03/08/21 03/08/21 History omeprazole 20 mg capsule,delayed 20 mg PO HS 03/08/21 03/08/21 History release Patient History Medical History Anxiety Arthritis Constipation Depression Eczema Hiatal hernia DX 30 YR AGO History of prostate cancer HX 1996 PROSTATECTOMY, NO CHEMO/NO RADIATION Hypertension Otosclerosis Overactive bladder Spinal stenosis B/L LE NEUROPATHY Urinary incontinence DEPENDS Urinary incontinence Weight loss 20 POUNDS OVER LAST 2 YRS/HAS UPCOMING APPOINTMENT WITH NEUROLOGY SEPTEMBER 2020 ...? [facility] Surgical History History of ankle surgery LEFT History of colonoscopy History of ear surgery L (WITH METAL IMPLANT) 2/2 OTOSCLEROSIS History of hernia repair History of inguinal hernia repair History of right cataract extraction Hx of prostatectomy Hx of tonsillectomy Family History Mother , age 84 with an intercerebral hemorrhage Family history of diabetes mellitus Hypertension Diabetes Sister Family history of diabetes mellitus Diabetes Anxiety Father , age 82 of pancreatic cancer Pancreatic cancer Brother No problems noted. 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, 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61 How many Children do You have: 4 Feels Safe at Home: Yes Safety Concerns: Feels Safe At This Time Assistive Devices: Glasses, Hearing Aid - Bilateral and Walker Review of Systems Constitutional: no increased appetite Respiratory: no cough Gastrointestinal: + nausea; no abdominal pain and no heartburn Neurologic: + memory loss Physical Exam Constitutional: no acute distress Respiratory: normal respiratory effort Cardiovascular: RRR, no murmur, no edema Gastrointestinal (Abdomen): normal bowel sounds, soft, nontender, no hepatosplenomegaly Musculoskeletal: Head/Neck/Chest: normocephalic Psychiatric: Orientation: alert Results & Data ([facility]) Vital Signs (Past 12 Hours) Vital Signs Temp Pulse Resp BP Pulse Ox 03/15/21 07:41 36.6 C 60 16 134/72 96 03/14/21 22:15 37 C 63 18 114/68 94 PG Care Time/CCT Total # of Minutes Spent Total Time Spent with Patient: Total time spent is greater than 50% in coordin ation of care (as documented) at patient's floor/unit and/or counseling patient: Coding Level of Care Code 15638 Initial Inpt Care Lvl 3 Diagnoses Nausea and vomiting R11.2
[2021-03-15] MEDS: ONDANSETRON INJ 2 MG/ML 2 ML VIAL IV PRN (12:16)
[2021-03-15] MEDS: POLYETHYLENE (MIRALAX) 17 GM PACK PO SCH (19:53)
[2021-03-15] MEDS: PANTOprazole 40 MG TAB PO SCH (19:53)
--- NOTE | 2021-03-15 22:15 | Hospitalist Progress Note ---
Date of Service March 15, 2021 Assessment & Plan (1) Nausea and vomiting: Plan: improved GI consult was obtained - they offered EGD but unfortunately he had eaten breakfast they plan on outpatient EGD since his symptoms seem better last 1-2 days uncertain etiology initially thought to be med side effects (sinemet, aricept, etc) however, still w/ N/V despite stopping those meds several days ago has had adequate Rx for UTI thus doubt such recent KUB with mild constipation but no ileus/SBO - moving bowels nicely CT head without pathology CT abd/pelvis - no specific etiology found I went ahead and added carafate QID to his PPI severe GERD with regurgitation? (2) Muscle rigidity: Plan: Dr Mcnally's consultation much appreciated. Dr Scott's suggestions appreciated They see features of a Parkinson's disease or parkinsonian state on examination. Sinemet on hold due to ?GI side effects aricept on hold started requip 0.25mg BID tolerating such (3) Lyme disease: Plan: ruled out western blot negative d/c doxy (4) Acute UTI: Plan: Pansensitive E. coli completed 7 days of Rx needs SHLOMO to r/o prostatitis will perform SHLOMO tomorrow (5) Weakness: Plan: likely multifactorial cont PT/OT therapy advising SNF unless family can provide 24/7 care (6) Anxiety: Plan: Continue sertraline and Buspar (7) OCD (obsessive compulsive disorder): Plan: As above for anxiety (8) NPH (normal pressure hydrocephalus): Plan: s/p 3rd ventriculostomy procedure in the last year no significant improvement in overall condition, however, since the procedure per history (9) Dementia: Plan: at baseline mod-severe holding aricept for now (concern that dose increase caused Nausea?) follows with Dr Scott - [facility] neuro (10) Abnormal chest x-ray: Plan: cxr and lung cuts from CT a/p with findings suggestive of PF nothing to do at this time O2 sats wnl no symptoms pulm referral post-d/c (11) Dysphagia: Plan: question of speech eval completed; no aspiration regular diet (12) Parkinsonian features: Plan: see #2 above (13) Hyponatremia: Plan: appears chronic for several years suspect 2nd to SSRI with development of low-grade SIADH possible NPH could cause SIADH as well check serum osm, urine osm, urine Na BMP am (14) DVT prophylaxis: Plan: lovenox 40mg daily (15) Altered taste: Plan: started when he had ventriculostomy earlier this year. uncertain why this would have caused altered taste/smell. he has never had clinical COVID to family's knowledge. CT head without sinusitis. TSH, FT4, cortisol wnl. uncertain etiology GERD? other?? Plan: extensive update given to daughter by phone last evening Admission and Anticipated Discharge Date Admission Date: March 10, 2021 Subjective per staff no new issues during bedside rounds he couldn't offer much in the way of history or ROS he initially said he was "terrible" when I asked him to explain he said "the people around here aren't nice" I asked who he was referring to and he did not respond he did not offer any other info - he then asked when his was coming he shifted from topic to topic denied any abd pain Review of Systems Review of Systems: Unobtainable due to cognitive status Physical Exam Physical Exam: gen - NAD, confused - unchanged mouth - MMM neck - no JVD heart - RRR, s1 s2 lungs - bibasilar dry rales unchanged abd - soft, NT, ND, BS+, no HSM ext - no edema, pulses 2+ b/l psych - a/o x 2 only skin - stasis changes right calf Results & Data Results & Data ([facility]) Vital Signs (Past 12 Hours) Vital Signs Temp Pulse Resp BP Pulse Ox 03/15/21 16:37 37.3 C 71 16 115/74 95 PG Care Time/CCT Total # of Minutes Spent Total Time Spent with Patient: Total time spent is greater than 50% in coordination of care (as documented) at patient's floor/unit and/or counseling patient: Coding Level of Care Code 61550 Subseq Hosp Care Lvl 2 Diagnoses Nausea and vomiting R11.2 Muscle rigidity R29.898 Lyme disease A69.20 Acute UTI N39.0 Weakness R53.1 Anxiety F41.9 OCD (obsessive compulsive disorder) F42.9 NPH (normal pressure hydrocephalus) G91.2 Dementia F03.90 Abnormal chest x-ray R93.89 Dysphagia R13.10 Parkinsonian features R25.9 Hyponatremia E87.1 DVT prophylaxis Z29.9 Altered taste R43.2
[2021-03-16 05:51] LABS: Hematocrit (blood only) 36.3 % (42-52); Hemoglobin 12.8 g/dL (14.0-18.0); Mean Corpuscular Hemoglobin 31.2 pg (25-34); Mean Corpuscular Hgb Conc 35.3 g/dL (32-36); Mean Corpuscular Volume 88.5 fL (80-100); Mean Platelet Volume 9.1 fL (7.4-10.4); Platelet Count 179 K/uL (130-400); RDW Coefficient of Variation 13.8 % (11.5-14.5); RDW Standard Deviation 45.2 fL (36.4-46.3); White Blood Count 7.17 K/uL (4.8-10.8)
[2021-03-16 06:10] LABS: BUN Creatinine Ratio 22.7 (10-20); Calcium 8.8 mg/dl (8.5-10.1); Creatinine Clr Calc Pharmacy 71.1 ml/min; Est GFR (African American) 95.2 ml/min; Est GFR (Non-African American) 82.2 ml/min; Potassium 3.7 mmol/L (3.5-5.1)
[2021-03-16] MEDS: ASPIRIN 81 MG ECTAB PO SCH (08:59)
[2021-03-16] MEDS: busPIRone 5 MG TAB PO SCH ×2 (09:00→20:57)
[2021-03-16] MEDS: rOPINIRole HCL 0.25 MG TABLET PO SCH (09:03)
[2021-03-16] MEDS: CEROVITE ADV FORMULA TAB PO SCH (09:03)
[2021-03-16] MEDS: ENOXAPARIN INJ 40 MG/0.4 ML SYR SQ SCH (09:03)
[2021-03-16] MEDS: SERTRALINE HCL 100 MG TABLET PO SCH (09:04)
[2021-03-16] MEDS: SUCRALFATE 1 GM/10 ML UDC PO SCH ×4 (09:04→20:59)
[2021-03-16] MEDS: SERTRALINE HCL 50 MG TABLET PO SCH (09:04)
[2021-03-16] MEDS: ONDANSETRON INJ 2 MG/ML 2 ML VIAL IV PRN (13:11)
[2021-03-16] MEDS ORDERED: IBUPROFEN 600 MG TAB PO STA (17:55)
--- NOTE | 2021-03-16 19:57 | Communication Note ---
Date of Service: March 16, 2021 Nursing messaged night team about ongoing hallucinations (patient thought he was climbing on the wall). This has apparently been occurring for past several nights. I did hold his am requip dose in the event this was contributory.
--- NOTE | 2021-03-16 20:25 | Hospitalist Progress Note ---
Date of Service March 16, 2021 Assessment & Plan (1) Nausea and vomiting: Plan: resolved no emesis in 24+ hours eating better GI consult was obtained yesterday - they offered EGD but unfortunately he had eaten breakfast they plan on outpatient EGD since his symptoms seem better last 1-2 days uncertain etiology initially thought to be med side effects (sinemet, aricept, etc) however, still w/ N/V despite stopping those meds several days ago has had adequate Rx for UTI thus doubt such recent KUB with mild constipation but no ileus/SBO - moving bowels nicely CT head without pathology CT abd/pelvis - no specific etiology found added carafate QID to his PPI severe GERD with regurgitation? either way symptoms are improved (2) Muscle rigidity: Plan: Dr Mcnally's consultation much appreciated. Dr Scott's suggestions appreciated. They see features of a Parkinson's disease or parkinsonian state on examination. Sinemet on hold due to ?GI side effects aricept on hold started requip 0.25mg BID for this issue (3) Lyme disease: Plan: ruled out doxycycline d/c once western blot returned negative (4) Acute UTI: Plan: Pansensitive E. coli completed 7 days of Rx needs SHLOMO to r/o prostatitis (5) Weakness: Plan: likely multifactorial cont PT/OT therapy advising SNF unless family can provide 24/ care (6) Anxiety: Plan: Continue sertraline and Buspar (7) OCD (obsessive compulsive disorder): Plan: As above for anxiety (8) NPH (normal pressure hydrocephalus): Plan: s/p 3rd ventriculostomy procedure in the last year no significant improvement in overall condition, however, since the procedure per history (9) Dementia: Plan: at baseline mod-severe holding aricept for now (concern that dose increase caused Nausea?) follows with Dr Scott - [facility] [place] (10) Abnormal chest x-ray: Plan: cxr and lung cuts from CT a/p with findings suggestive of PF nothing to do at this time O2 sats wnl no symptoms pulm referral post-d/c (11) Dysphagia: Plan: ruled out/not suspected speech eval completed; no aspiration regular diet (12) Parkinsonian features: Plan: see #2 above (13) Hyponatremia: Plan: appears chronic for several years initially suspected 2nd to SSRI with development of low-grade SIADH serum osm 280 urine osm quite high urine Na, however, only 10 suggesting solute deficiency will start NaCL 1gm daily and follow daily BMPs (14) DVT prophylaxis: Plan: lovenox 40mg daily (15) Altered taste: Plan: started when he had ventriculostomy earlier this year. uncertain why this would have caused altered taste/smell. he has never had clinical COVID to family's knowledge. CT head without sinusitis. TSH, FT4, cortisol wnl. uncertain etiology GERD? dementia?? other?? this will affect his overall appetite Plan: extensive updates given to daughter this week updated pt's at bedside this evening Admission and Anticipated Discharge Date Admission Date: March 10, 2021 Subjective eating better no vomiting episodes at bedside during the visit asks about his delirium/confusion - we had a discussion that delirium is common in the hospital especially in individuals that have pre-existing dementia Mr Ac was lying in bed comfortably during the visit he offered no complaints Review of Systems Review of Systems: Unobtainable due to cognitive status Physical Exam Physical Exam: gen - lying in bed comfortably, NAD, confused - unchanged mouth - MMM neck - no JVD heart - RRR, s1 s2, no murmur lungs - bibasilar dry rales unchanged; no wheeze, no increased work of breathing abd - soft, NT, ND, BS+, no HSM ext - no edema, pulses 2+ b/l; left forearm - former IV site with infiltration and small amount of induration over the vein; mildly tender over a 2cm area of a single vein; ?extension of induration more proximally in the vein? psych - a/o x 1 only (person) skin - stasis changes right calf - unchanged Results & Data [facility] Vital Signs (Past 12 Hours) Vital Signs Temp Pulse Resp BP Pulse Ox 03/16/21 16:05 36.7 C 66 18 120/78 92 Laboratory Results Laboratory Results - last 24 hr 03/16/21 03/16/21 03/16/21 05:25 05:25 05:25 WBC 7.17 RBC 4.10 L Hgb 12.8 L Hct 36.3 L MCV 88.5 MCH 31.2 MCHC 35.3 RDW Std Deviation 45.2 RDW Coeff of Bambi 13.8 Plt Count 179 MPV 9.1 Sodium 132 L Potassium 3.7 Chloride 96 L Carbon Dioxide 32 Anion Gap 4.0 BUN 18 D Creatinine 0.77 Est Cr Clr Drug Dosing 71.1 Est GFR ( Amer) 95.2 Est GFR (Non-Af Amer) 82.2 BUN/Creatinine Ratio 22.7 H Glucose 104 H Osmolality 280 Calcium 8.8 Urine Osmolality Ur Random Sodium 03/16/21 03/16/21 14:20 14:20 WBC RBC Hgb Hct MCV MCH MCHC RDW Std Deviation RDW Coeff of Bambi Plt Count MPV Sodium Potassium Chloride Carbon Dioxide Anion Gap BUN Creatinine Est Cr Clr Drug Dosing Est GFR ( Amer) Est GFR (Non-Af Amer) BUN/Creatinine Ratio Glucose Osmolality Calcium Urine Osmolality 689 Ur Random Sodium 10 PG Care Time/CCT Total # of Minutes Spent Total Time Spent with Patient: Total time spent is greater than 50% in coordination of care (as documented) at patient's floor/unit and/or counseling patient: Coding Level of Care Code 73598 Subseq Hosp Care Lvl 2 Diagnoses Nausea and vomiting R11.2 Muscle rigidity R29.898 Lyme disease A69.20 Acute UTI N39.0 Weakness R53.1 Anxiety F41.9 OCD (obsessive compulsive disorder) F42.9 NPH (normal pressure hydrocephalus) G91.2 Dementia F03.90 Abnormal chest x-ray R93.89 Dysphagia R13.10 Parkinsonian features R25.9 Hyponatremia E87.1 DVT prophylaxis Z29.9 Altered taste R43.2
[2021-03-16] MEDS: PANTOprazole 40 MG TAB PO SCH (20:58)
[2021-03-16] MEDS: SODIUM CHLORIDE 1 GM TABLET PO SCH (21:06)
[2021-03-16] MEDS: POLYETHYLENE (MIRALAX) 17 GM PACK PO SCH (21:06)
[2021-03-17 06:28] LABS: BUN Creatinine Ratio 21.6 (10-20); Calcium 8.6 mg/dl (8.5-10.1); Est GFR (African American) 97.3 ml/min; Potassium 3.7 mmol/L (3.5-5.1)
[2021-03-17] MEDS: ENOXAPARIN INJ 40 MG/0.4 ML SYR SQ SCH (09:27)
[2021-03-17] MEDS: SODIUM CHLORIDE 1 GM TABLET PO SCH (09:28)
[2021-03-17] MEDS: busPIRone 5 MG TAB PO SCH ×2 (09:28→20:42)
[2021-03-17] MEDS: SERTRALINE HCL 50 MG TABLET PO SCH (09:29)
[2021-03-17] MEDS: SERTRALINE HCL 100 MG TABLET PO SCH (09:29)
[2021-03-17] MEDS: CEROVITE ADV FORMULA TAB PO SCH (09:30)
[2021-03-17] MEDS: ASPIRIN 81 MG ECTAB PO SCH (09:30)
[2021-03-17] MEDS: SUCRALFATE 1 GM/10 ML UDC PO SCH ×4 (09:31→20:40)
[2021-03-17] MEDS: POLYETHYLENE (MIRALAX) 17 GM PACK PO SCH (20:40)
[2021-03-17] MEDS: PANTOprazole 40 MG TAB PO SCH (20:40)
--- NOTE | 2021-03-17 22:53 | Hospitalist Progress Note ---
Date of Service March 17, 2021 Assessment & Plan (1) Nausea and vomiting: Plan: resolved no emesis in 2-3 days eating better GI consult was obtained 03/15 - they offered EGD but unfortunately he had eaten breakfast that day and will do EGD as outpatient uncertain etiology initially thought to be med side effects (sinemet, aricept, etc) however, still had had N/V despite stopping those meds Rx of UTI did not lead to resolution of the GI symtpoms recent KUB with mild constipation but no ileus/SBO - moving bowels nicely CT head without pathology CT abd/pelvis - no specific etiology found added carafate QID to his PPI severe GERD with regurgitation? either way symptoms are resolved f/u with [facility] post-discharge for EGD (2) Muscle rigidity: Plan: Dr Mcnally's consultation and suggestions much appreciated. Dr Scott's suggestions appreciated. They see features of a Parkinson's disease or parkinsonian state on examination. Sinemet on hold due to ?GI side effects aricept on hold started requip 0.25mg BID for this issue a few days ago but family concerned he was more confused on it. thus, it is now on hold. defer Rx to neurology. (3) Lyme disease: Plan: ruled out doxycycline d/c once western blot returned negative (4) Acute UTI: Plan: Pansensitive E. coli completed 7 days of Rx records indicate he has had a prostatectomy - thus, defer on a SHLOMO (5) Weakness: Plan: likely multifactorial cont PT/OT therapy advising SNF unless family can provide 24/7 care (6) Anxiety: Plan: Continue sertraline and Buspar (7) OCD (obsessive compulsive disorder): Plan: As above for anxiety (8) NPH (normal pressure hydrocephalus): Plan: s/p 3rd ventriculostomy procedure in the last year no significant improvement in overall condition, however, since the procedure per history (9) Dementia: Plan: at baseline mod-severe holding aricept for now (concern that dose increase caused Nausea?) [place] Scott [place] [facility] [place] (10) Abnormal chest x-ray: Plan: cxr and lung cuts from CT a/p with findings suggestive of PF nothing to do at this time O2 sats wnl no symptoms pulm referral post-d/c (11) Dysphagia: Plan: ruled out/not suspected speech eval completed; no aspiration regular diet now tolerating such (12) Parkinsonian features: Plan: see #2 above (13) Hyponatremia: Plan: appears chronic for several years initially suspected 2nd to SSRI with development of low-grade SIADH serum osm 280 urine osm quite high urine Na, however, only 10 suggesting solute deficiency started NaCL 1gm daily and Na slowly rising repeat BMP am (14) DVT prophylaxis: Plan: lovenox 40mg daily (15) Altered taste: Plan: started when he had ventriculostomy earlier this year. uncertain why this would have caused altered taste/smell. he has never had clinical COVID to family's knowledge. CT head without sinusitis. TSH, FT4, cortisol wnl. uncertain etiology GERD? dementia?? other?? this will affect his overall appetite (16) Severe protein-calorie malnutrition: Plan: 5kg weight loss since October 2020 likely 2nd to dementia (17) IV infiltration: Plan: left arm improving small section of phlebitis in a superficial vein mid-forearm only it is smaller today continue to elevate the arm continue heat Plan: extensive updates given to daughter this week updated pt's at bedside yesterday, and then again by phone this evening again voices concerns about his delirium we have had several discussions about hospital delirium, its causes, its high prevalence in folks with dementia, etc I recommended against treating it as he has had multiple issues with several meds this admission (aricept, sinemet, ?requip, etc) and I would be concerned he would not tolerate an atypical antipsychotic he is relatively calm - no agitation, not attempting to climb out of bed, not physical with staff, etc - defer on treatment reassurance given to I told his elyssa that PT/OT are both strongly advising SNF placement Notes suggest he is near [place] assist to stand and transfer social work will need to assist w/ placement Admission and Anticipated Discharge Date Admission Date: March 10, 2021 Subjective no major events during bedside rounds he was resting in bed like all my prior visits he was confused but not agitated he asked about his , and asked when he could leave he did not realize he was in the hospital staff report confusion most times of the day with worsening of symptoms at night-time eating well with no N/V or abd pain Review of Systems Review of Systems: Unobtainable due to cognitive status Physical Exam Physical Exam: gen - lying in bed comfortably, NAD, confused - unchanged mouth - MMM neck - no JVD heart - RRR, s1 s2, no murmur lungs - bibasilar dry rales unchanged; no wheeze, no increased work of breathing abd - soft, NT, ND, BS+, no HSM ext - no edema, pulses 2+ b/l; left forearm - former IV site with infiltration and small amount of induration over the vein; mildly tender over a 2cm area of a single vein; this region is overall improved w/ less swelling/redness/tenderness psych - a/o x 1 only (person) skin - stasis changes right calf - unchanged Results & Data Results & Data ([facility]) Vital Signs (Past 12 Hours) Vital Signs Temp Pulse Resp BP Pulse Ox 03/17/21 16:00 36.5 C 90 18 100/64 96 Laboratory Results Laboratory Results - last 24 hr 03/17/21 05:27 Sodium 133 L Potassium 3.7 Chloride 96 L Carbon Dioxide 35 H Anion Gap 2.0 L BUN 16 Creatinine 0.73 Est Cr Clr Drug Dosing 75.0 Est GFR ( Amer) 97.3 Est GFR (Non-Af Amer) 84.0 BUN/Creatinine Ratio 21.6 H Glucose 93 Calcium 8.6 PG Care Time/CCT Total # of Minutes Spent Total Time Spent with Patient: Total time spent is greater than 50% in coordination of care (as documented) at patient's floor/unit and/or counseling patient: Coding Level of Care Code 67011 Subseq Hosp Care Lvl 2 Diagnoses Nausea and vomiting R11.2 Muscle rigidity R29.898 Lyme disease A69.20 Acute UTI N39.0 Weakness R53.1 Anxiety F41.9 OCD (obsessive compulsive disorder) F42.9 NPH (normal pressure hydrocephalus) G91.2 Dementia F03.90 Abnormal chest x-ray R93.89 Dysphagia R13.10 Parkinsonian features R25.9 Hyponatremia E87.1 DVT prophylaxis Z29.9 Altered taste R43.2 Severe protein-calorie malnutrition E43 IV infiltration T80.1XXA
[2021-03-18 06:35] LABS: BUN Creatinine Ratio 21.3 (10-20); Calcium 8.6 mg/dl (8.5-10.1); Est GFR (African American) 97.3 ml/min; Potassium 3.3 mmol/L (3.5-5.1)
[2021-03-18] MEDS: SUCRALFATE 1 GM/10 ML UDC PO SCH ×4 (08:23→21:47)
[2021-03-18] MEDS: SERTRALINE HCL 50 MG TABLET PO SCH (08:26)
[2021-03-18] MEDS: busPIRone 5 MG TAB PO SCH ×2 (08:27→21:47)
[2021-03-18] MEDS: CEROVITE ADV FORMULA TAB PO SCH (08:27)
[2021-03-18] MEDS: SODIUM CHLORIDE 1 GM TABLET PO SCH (08:27)
[2021-03-18] MEDS: ASPIRIN 81 MG ECTAB PO SCH (08:27)
[2021-03-18] MEDS: SERTRALINE HCL 100 MG TABLET PO SCH (08:27)
[2021-03-18] MEDS: ENOXAPARIN INJ 40 MG/0.4 ML SYR SQ SCH (08:28)
[2021-03-18] MEDS: SENNA 8.6 MG TAB PO SCH (08:29)
[2021-03-18] MEDS ORDERED: POTASSIUM CHLORIDE CRTAB 20 MEQ TABCR PO ONE (09:15)
--- NOTE | 2021-03-18 11:20 | Neurology Progress Note ---
Date of Service March 18, 2021 Assessment & Plan (1) Parkinsonian features: (2) Dementia: (3) NPH (normal pressure hydrocephalus): Plan: Parkinsonism/dementia with associated normal pressure hydrocephalus, status post third ventriculostomy at [facility], unfortunately did not experience significant durable benefit with this procedure. May have an element of hospital associated delirium/sundowning although has been potentially having hallucinations. Lewy body dementia not excluded. Poor tolerance to Sinemet and ropinirole. Would not continue with either of these medications. Questionable poor tolerance to donepezil noted as well, continue to hold this medication. If patient were to exhibit further episodes of dystonia would consider a trial of low-dose Cogentin, 0.5 mg/day as needed. Admission and Anticipated Discharge Date Admission Date: March 10, 2021 Subjective Follow-up for normal pressure hydrocephalus, parkinsonism Patient is apparently not tolerated recent trial of ropinirole due to development of hallucinations. Patient indicates that he has had the perception that he is floating up on the ceiling, also remarks that he sees people and the hospital room that he admits are probably not really there. There is a communication report from March 16, 2021, Dr. West, which indicates hallucinat ions, patient thought he was climbing on the wall, apparently occurring for the past several nights, ropinirole placed on hold. Patient's daughter did contact our office this morning reporting the above issue with request for potential to change his medication recommendation. Please see my previous note from March 14, 2021 for further details. Patient has not tolerated a previous trial of Sinemet due to nausea and retching. Patient donepezil also remains on hold as it was unclear if this medication could have been contributing to his GI symptoms as well. Review of Systems Neurologic: as per Subjective / HPI, + gait abnormality, + confusion and + memory loss; no tremor(s) Psychiatric: as per Subjective / HPI and + hallucinations; no auditory hallucinations Results & Data ([facility]) Vital Signs (Past 12 Hours) Vital Signs Temp Pulse Resp BP Pulse Ox 03/18/21 08:50 36.3 C L 68 18 143/77 H 95 03/17/21 23:17 37.1 C 67 16 109/67 94 Exam (Neuro) Neurologic: Oriented to:: Person; negative Place or Time Memory: negative Short Term Intact Attention: negative Span Intact or Concentration Intact Speech Fluency: negative Dysarthria or Dysfluency Fund of Knowledge: Vo cabulary Cranial Nerves: Normal II, III, IV, and VII Motor Strength: negative Normal Lower Extremities or Normal Upper Extremities Rigidity: None Muscle Bulk/Involuntary Movements: No Involuntary Movements Details: No dystonia, rigidity, or tremor observed at this time. Coding Level of Care Code 34347 Subseq Hosp Care Lvl 2 Diagnoses Parkinsonian features R25.9 Dementia F03.90 Dementia behavioral disturbance: without behavioral disturbance Dementia type: unspecified type NPH (normal pressure hydrocephalus) G91.2 (1) Dementia Dementia behavioral disturbance: without behavioral disturbance Dementia type: unspecified type Qualified Code(s): F03.90 - Unspecified dementia without behavioral disturbance
[2021-03-18] MEDS ORDERED: BENZTROPINE MESYLATE 0.5 MG TAB PO PRN (13:22)
--- NOTE | 2021-03-18 13:54 | Hospitalist Progress Note ---
Date of Service March 18, 2021 Assessment & Plan (1) Debility: Plan: - overall deconditioned state from extended SUSAN (12 days in hospital) - initially patient was adamantly refusing short term rehab but now self aware at just how debilitated he has become (unfortunately we just do not have the aggressive rehab that he needs). He is requesting rehab. I did explain this to his family who is unhappy and refusing - Family is concerned that he will become confused in a new facility (given his h/o dementia) and "get worse" and are willing to have the 3 children stay with the patient for 2-3 weeks at all times ("whatever is needed"). - Patient (per PT) is a good rehab candidate and has potential but will likely not get much better from physical standpoint at home. To have family meeting to determine if patient would like to peruse home with PT/OT vs placement for rehab. Family notified that ultimately it is up to the patient. They understand (2) Hypokalemia: Plan: - replace (3) Nausea and vomiting: Plan: resolved no emesis in 3-4 days eating better GI consult was obtained 03/15 - they offered EGD but unfortunately he had eaten breakfast that day and will do EGD as outpatient uncertain etiology initially thought to be med side effects (sinemet, aricept, etc) however, still had had N/V despite stopping those meds Rx of UTI did not lead to resolution of the GI symtpoms recent KUB with mild constipation but no ileus/SBO - moving bowels nicely CT head without pathology CT abd/pelvis - no specific etiology found added carafate QID to his PPI severe GERD with regurgitation? either way symptoms are resolved f/u with [facility] post-discharge for EGD it does seem as if prolonged hospital stay is contributing to GI upset and decreased oral intake. Per daughter, patient suffers from anxiety and depression--? likely exacerbated given lengthy hospitalization. Discussed addition of Remeron (which would help with depression and stimulate appetite); however, I feel it is best to avoid any new medications as of now given recent trial of multiple meds and intolerance to them (4) Muscle rigidity: Plan: Dr Mcnally's consultation and suggestions much appreciated. Dr Scott's suggestions appreciated. They see features of a Parkinson's disease or parkinsonian state on examination. Sinemet on hold due to ?GI side effects aricept on hold requip 0.25mg held given increased confusion and hallucinations add PRN Cogentin (as per Neurology) for dystonia but avoid other medications for now as ? GI side effects (5) Lyme disease: Plan: ruled out Initial IgM positive with negative Western Blot doxycycline d/c'ed once western blot returned negative (6) Acute UTI: Plan: Pansensitive E. coli completed 7 days of Rx records indicate he has had a prostatectomy - thus, defer on a SHLOMO (7) Anxiety: Plan: with OCD Continue sertraline and Buspar (8) NPH (normal pressure hydrocephalus): Plan: s/p 3rd ventriculostomy procedure in the last year no significant improvement in overall condition, however, since the procedure per history (9) Dementia: Plan: at baseline mod-severe holding aricept for now (concern that dose increase caused Nausea?) follows with Dr Scott - [facility] [place] (10) Abnormal chest x-ray: Plan: cxr and lung cuts from CT a/p with findings suggestive of PF--> no respiratory symptoms. Does have occasional rhonchi that clears with coughing. No hypoxemia. CXR showing interstitial markings for which ST consulted and recommended a normal diet. No concern for aspiration. (11) Hyponatremia: Plan: appears chronic for several years , Mild (130-132) initially suspected 2nd to SSRI with development of low-grade SIADH serum osm 280 urine osm quite high urine Na, however, only 10 suggesting solute deficiency started on NaCL 1gm daily but would not treat unless symptomatic (again, ongoing as far back as 2018) and acceptable. Likely related to pyBahoui meds Plan: plan of care D/W daughter plan is for rehab vs home with home services-- to have family meeting today plan of care D/W Dr. Mary Admission and Anticipated Discharge Date Admission Date: March 10, 2021 Subjective Patient seen on daily rounds today. Over the course of the past week, has become more deconditioned. Was ambulating to the bathroom with a wheeled walker and a minimum assist of 1. Now is requiring max assist of 2 and is still very unsteady. PT/OT recommending placement for short-term rehab. Patient was initially adamantly refusing this however is agreeable. His family; however, is refusing. In addition, patient has had intolerances to multiple medications that were tried for his parkinsonian features. Sinemet, Requip, and increased Aricept seem to cause nausea and vomiting. These all remain on hold and his nausea and vomiting are improving. Did not eat breakfast but tolerated lunch without issu es. Was seen by GI who recommends outpatient EGD. Patient empirically placed on PPI and Carafate. Review of Systems Review of Systems: All systems reviewed and are unremarkable except as noted in HPI and below Denies fevers, chills, headache, nasal congestion, sore throat, cough, chest pain, shortness of breath, palpitations, orthopnea, PND, abdominal pain, nausea, vomiting, diarrhea, constipation, dysuria, hematuria, frequency, back pain, joint pain or swelling, easy bruising or bleeding, skin lesions or rashes. Physical Exam Physical Exam: General: Resting comfortably in his hospital bed. Masked faci es. Flat affect. HEENT: Head is AT/NC buccal mucosa is moist and pink Neck: No JVD. Negative hepatojugular reflex Cardiac: RRR distant heart sounds Lungs: Speaking full sentences on ambient air scattered rhonchi throughout that clears with coughing. No wheezes or rails Abdomen: Normoactive X4. Soft and nontender in all quadrants. Extremities: No peripheral clubbing cyanosis or edema Neuro: A&O X4 cranial nerves II through XII are grossly intact no focal neuro deficits Skin: No obvious skin lesions or rashes Psych: Appropriate affect pleasant and cooperative Results & Data Results & Data ([facility]) Vital Signs (Past 12 Hours) Vital Signs Temp Pulse Resp BP Pulse Ox 03/18/21 11:28 36.5 C 71 20 121/74 95 03/18/21 08:50 36.3 C L 68 18 143/77 H 95 Laboratory Results 03/16/21 05:25 03/18/21 05:38 PG Care Time/CCT Total # of Minutes Spent Total Time Spent with Patient: Total time spent is greater than 50% in coordination of care (as documented) at patient's floor/unit and/or counseling patient: Coding [place] [address] Subseq Hosp Care Lvl 3 Patient Type Established History Detailed Exam Detailed Medical Decision Making Moderate Complexity Diagnoses Nausea and vomiting R11.2 Muscle rigidity R29.898 Lyme disease A69.20 Acute UTI N39.0 Anxiety F41.9 NPH (normal pressure hydrocephalus) G91.2 Dementia F03.90 Abnormal chest x-ray R93.89 Hyponatremia E87.1 Debility R53.81 Hypokalemia E87.6
[2021-03-18] MEDS: POLYETHYLENE (MIRALAX) 17 GM PACK PO SCH (21:47)
[2021-03-18] MEDS: PANTOprazole 40 MG TAB PO SCH (21:47)
[2021-03-19 07:33] LABS: Calcium 8.9 mg/dl (8.5-10.1); Est GFR (African American) 97.3 ml/min; Potassium 3.8 mmol/L (3.5-5.1)
[2021-03-19] MEDS: busPIRone 5 MG TAB PO SCH (09:11)
[2021-03-19] MEDS: SERTRALINE HCL 50 MG TABLET PO SCH (09:12)
[2021-03-19] MEDS: SERTRALINE HCL 100 MG TABLET PO SCH (09:12)
[2021-03-19] MEDS: SENNA 8.6 MG TAB PO SCH (09:13)
[2021-03-19] MEDS: ASPIRIN 81 MG ECTAB PO SCH (09:15)
[2021-03-19] MEDS: CEROVITE ADV FORMULA TAB PO SCH (09:16)
[2021-03-19] MEDS: ENOXAPARIN INJ 40 MG/0.4 ML SYR SQ SCH (09:16)
[2021-03-19] MEDS: SUCRALFATE 1 GM/10 ML UDC PO SCH (09:16)
--- NOTE | 2021-03-19 16:00 | Discharge Summary ---
Date of Service March 19, 2021 Admission HPI Per Admitting Provider Ish Ac is an 85 year old male with anxiety, OCD and normal pressure hydrocephalus who presents to the ER with dystonia. Most of the history is taken from his daughter at bedside. She reports this was the same kind of episode to what happened on March 06 and prior admission on February 14. He wakes up in the morning and has bilateral increased tone in all his limbs. This can take hours to improve. Reportedly on arrival to the ER he was in decorticate posturing and it was very difficult to move any of his limbs. Prior workup for CVA on February 14 was negative and he was discharged with diagnosis of possible viral illness. On that occasion he was having increased tone during a nap in the afternoon. No pain noted during episodes. He is unable to speak proper during the episode as cannot move his mouth. Current after Ativan given in the ER he is more back to his normal self although speech is a little slow and tone remains mildly increased but supposedly much improved from arrival. She notes high anxiety and OCD with her father that has been present all his life but only needed treatment because of worsening severity in the last 5 years. He has normal pressure hydrocephalus and underwent third ventriculostomy at [facility] in January. His case was discussed with Dr Scott prior to admission and this was not felt to be causing his current symptoms. The patient lives with his and usually mobilizes with a cane. He was referred to medicine for weakness and muscle rigidity. Principal Diagnosis 1. Deconditioned state/debility 2. 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 Nausea and vomitingresolved and thought to be medication induced 4. UTIcompleted full course of antibiotic therapy 5. Abnormal CXRrefer to pulmonology Discharge Exam General: Resting comfortably in his hospital bed. Masked facies. Flat affect. HEENT: Head is AT/NC buccal mucosa is moist and pink Neck: No JVD. Negative hepatojugular reflex Cardiac: RRR distant heart sounds Lungs: Speaking full sentences on ambient air scattered rhonchi throughout that clears with coughing. No wheezes or rails Abdomen: Normoactive X4. Soft and nontender in all quadrants. Extremities: No peripheral clubbing cyanosis or edema Neuro: A&O X4 cranial nerves II through XII are grossly intact no focal neuro deficits Skin: No obvious skin lesions or rashes Psych: Appropriate affect pleasant and cooperative Discharge Data Allergies Allergy/AdvReac Type Severity Reaction Status Date / Time No Known Allergies Allergy Unverified 03/08/21 11:02 Consultations 03/08/21 11:07 ED Decision to Admit Stat 03/08/21 14:59 Consult Neurology Routine March 09, 2021 Assessment & Plan (1) Bradykinesia: (2) Weakness: (3) Muscle rigidity: (4) Dementia: (5) Urinary incontinence: (6) NPH (normal pressure hydrocephalus): (7) Spinal stenosis: This patient is somewhat complicated neurologically. CT scans in August 2020 were not convincing for normal pressure hydrocephalus, but he did have some temporary improvement after a lumbar puncture/ CSF removal Test (for 24 hours). They went ahead and did the 3rd ventriculostomy procedure and he has had minimal improvement in gait and incontinence since. His cognitive function has not improved. Interestingly, today he is fairly good and his memory is somewhat reasonable to conversation both long and short-term. On examination he has rigidity, legs greater than arms bilaterally and symmetrically with some cogwheeling in the arms. He has bradykinesia and a masklike face. There was no tremor but he does have decreased facility in the hands, relatively brisk reflexes in the right arm and leg compared to the left and upgoing toes on the right. he cannot even maintain a sitting posture and falls to the right. Given his clinical presentation, I cannot exclude a previous Left hemispheric stroke. Patient cannot get MRIs ( due to metallic implants in his ear). CT scan of the head on March 06 was unremarkable. He has a Parkinson's picture currently. An akinetic rigid form of Parkinson's (no tremor) along with some cognitive dysfunction is possible. Interestingly, he has episodic worsening of his muscle stiffness (including some dystonia ), but he still has significant rigidity and bradykinesia today (and he says his ep isode is completely over and he feels better) Patient does have a history of lumbar spinal stenosis. With his neck pain, I cannot exclude cervical spinal stenosis giving the upper motor neuron signs in the right arm and leg. Recommendations: 1. Since we cannot get MRIs obtain: CT scan of the cervical spine and brain, without contrast 2. initiate carbidopa/levodopa, 25/100mg, 1 tablets 3 times a day. 3. Increased an episode ill to 5 mg at bedtime. 4. continue antidepressants 5. Physical, occupational, and speech therapy consults Overall, I spent a total of 90 minutes with this case including review of records, review of CT films, direct evaluation the patient bedside, and discussion of the case with the patient at bedside, RN at bedside, and Dr. Kramer, including differential diagnosis and treatment options. 03/10/21: Neurology recommendations 1. Change carbidopa/levodopa, 25/100 milligram, 2-1/2 tablet 3 times a day taken with a little bit of food (avoid big protein loads with each dose ) 2. change donepezil to 10 milligrams at bedtime 3. continue antidepressants at current doses 4. continue Physical, occupational, and speech therapy Overall, I spent a total of 35minutes with this case including review of records, review of CT films, direct evaluation the patient bedside, and d iscussion of the case with the patient at bedside and Myrna Petit PA-C, including differential diagnosis and treatment options. March 14, 2021 Neurology: Assessment & Plan (1) NPH (normal pressure hydrocephalus): (2) Parkinsonian features: Plan: Although patient has been felt to have normal pressure hydrocephalus given symptoms/clinical history, examination and imaging findings, and modest response to high-volume lumbar puncture, he did not respond favorably to a third ventriculostomy procedure done with neurosurgery at [facility]. Furthermore, he has begun to exhibit unusual episodes of muscular stiffness, dystonia which may suggest atypical parkinsonism. He is bradykinetic but does not have a resting tremor. He did not tolerate a recent trial of Sinemet due to nausea and retching although his dosage of donepezil had also been recently increased. At this point, would recommend remaining off both of these medications. Would recommend a trial of ropinirole, will start with a low dose, 0.25 mg taken twice daily. Would increase gradually depending on response and tolerability. The patient does not tolerate ropinirole would consider a trial of the Neupro patch. However, dopamine agonists as a category have the potential to trigger nausea. An alternative option may be to try Cogentin. Cogentin would not typically trigger nausea or vomiting but does have the potential to worsen cognitive symptoms. Nonetheless, patient's episodes of muscular stiffness and dystonia seem to be more problematic than his cognitive decline and it may be worth while to try Cogentin if he does not tolerate dopamine agonists. March 18 Neurology Assessment & Plan (1) Parkinsonian features: (2) Dementia: (3) NPH (normal pressure hydrocephalus): Plan: Parkinsonism/dementia with associated normal pressure hydrocephalus, status post third ventriculostomy at [facility], unfortunately did not experience significant durable benefit with this procedure. May have an element of hospital associated delirium/sundowning although has been potentially having hallucinations. Lewy body dementia not excluded. Poor tolerance to Sinemet and ropinirole. Would not continue with either of these medications. Questionable poor tolerance to donepezil noted as well, continue to hold this medication. If patient were to exhibit further episodes of dystonia would consider a trial of low-dose Cogentin, 0.5 mg/day as needed. _ 03/15/21 07:12 Consult Gastroenterology Routine Assessment & Plan (1) Nausea and vomiting: -EGD not possible as patient was given a breakfast tray this morning. Fortunately, there is no emergent need for endoscopic evaluation and this can be done in an outpatient setting. -Protonix 40 mg daily. -Zofran 4 mg q 6 hr prn. -Follow-up in the office for further evaluation and recommendations. Supervising Physician Co-Signing Physician Notes I personally evaluated the patient and agree with the findings as documented by Jocelyne Sy, ASHLEY Exam: abd: soft, nt, nd outpatient EGD to further evaluate symptoms Ordered Studies 03/09/21 11:13 CT cervical spine wo con Routine IMPRESSION: 1. No fractures within the cervical spine. 2. Advanced degenerative changes throughout the cervical spine resulting in multilevel moderate to severe central canal and neural foraminal narrowing. This is most pronounced at the C3-C4 level. CT head/brain wo con Routine Impression: No significant change compared to the prior study. No acute intracranial abnormality. 03/14/21 17:02 CT abd pelvis IV con only Routine IMPRESSION: 1. No bowel wall thickening or obstruction. 2. Normal appendix. 3. No hydronephrosis. 4. Moderate fibrotic change at the lung bases. 5. Colonic diverticulosis. No evidence for acute diverticulitis. 6. Mild nonspecific asymmetric thickening within the left side of the bladder wall. Hospital Course (1) Debility: - overall deconditioned state from extended SUSAN (12 days in hospital) -Initially was doing well and recommendations were for home with PT/OT and family help but now therapy is recommending short-term rehab. Patient has been [id number] and as of yesterday he was requesting to go to rehab; however, now "would like his family to decide". I have been talking with patient's daughter (Pinky) at length who vocalizes concerns with him going to rehab (which are legitimate). She is concerned that he will become more confused given his underlying dementia and risk for institutional delirium. In addition, she is well aware that currently there is SUCH A LACK OF BEDS and patient are sitting in the hospital for 7-15 days (and even a few for weeks) with placement issues and she is concerned that he will decline further given the lack of therapy serv ices THAT HE NEEDS that can not be provided for him here in the hospital. -daughter and patient are also aware that patient will not be getting the aggressive therapy that he would benefit from in his home setting. In addition, there is concern for falling at home (as he is currently a max assist of 2). Daughter reports that between her and her siblings, they will be staying with the patient. He has a chair lift and we have arranged for a wheelchair and a hospital bed -ultimately, despite recommendations for acute rehab, family and patient have decided upon D/C to home with home PT/OT, visiting nurses and family support. (2) Hypokalemia: - replaced/resolved (3) Nausea and vomiting: resolved no emesis in 3-4 days eating better GI consult was obtained 03/15 - they offered EGD but unfortunately he had eaten breakfast that day and will do EGD as outpatient uncertain etiology initially thought to be med side effects (sinemet, aricept, etc) however, still had had N/V despite stopping those meds Rx of UTI did not lead to resolution of the GI symtpoms recent KUB with mild constipation but no ileus/SBO - moving bowels nicely CT head without pathology CT abd/pelvis - no specific etiology found added carafate QID to his PPI severe GERD with regurgitation? Honestly, seems to be medication induced (Sinemet, Aricept, Rocephin and then doxycycline, Requip). N/V resolved after discontinuing all of these medications. either way symptoms are resolved f/u with [facility] post-discharge for EGD it does seem as if prolonged hospital stay is contributing to GI upset and decreased oral intake. Per daughter, patient suffers from anxiety and depression--? likely exacerbated given lengthy hospitalization. Discussed addition of Remeron (which would help with depression and stimulate appetite); however, I feel it is best to avoid any new medications as of now given recent trial of multiple meds and intolerance to them (4) Muscle rigidity: Dr Mcnally's consultation and suggestions much appreciated. Dr Scott's suggestions appreciated. They see features of a Parkinson's disease or parkinsonian state on examination. Sinemet on hold due to ?GI side effects aricept on hold requip 0.25mg held given increased confusion and hallucinations add PRN Cogentin (as per Neurology) for dystonia but avoid other medications for now as ? GI side effects Follow-up with neurology as an outpatient. (5) Lyme disease: ruled out Initial IgM positive with negative Western Blot doxycycline d/c'ed once western blot returned negative (6) Acute UTI: Pansensitive E. coli completed 7 days of Rx records indicate he has had a prostatectomy - thus, defer on a SHLOMO (7) Anxiety: with OCD Continue sertraline and Buspar (8) NPH (normal pressure hydrocephalus): s/p 3rd ventriculostomy procedure in the last year no significant improvement in overall condition, however, since the procedure per history (9) Dementia: at baseline mod-severe holding aricept for now (concern that dose increase caused Nausea?) follows with Dr Scott - [facility] neuro (10) Abnormal chest x-ray: cxr and lung cuts from CT a/p with findings suggestive of PF--> no respiratory symptoms. Does have occasional rhonchi that clears with coughing. No hypoxemia. CXR showing interstitial markings for which ST consulted and recommended a normal diet. No concern for aspiration. Consider pulmonology referral as an outpatient (11) Hyponatremia: appears chronic for several years , Mild (130-132) initially suspected 2nd to SSRI with development of low-grade SIADH serum osm 280 urine osm quite high urine Na, however, only 10 suggesting solute deficiency started on NaCL 1gm daily but would not treat unless symptomatic (again, ongoing as far back as 2018) and acceptable. Likely related to pysch meds Salt tablet subsequently stopped Discharge recommendations (at discretion of PCP): 1. Follow-up with neurology 2. Referral to GI for possible EGD if nausea and vomiting persists 3. Pulmonology referral given fibrotic change seen on imaging 4. Follow-up labs (metabolic panel to further trend sodium) Home Health Attestation I certify that this patient is under my care and that I, or a physicians administrative assistant data entry working with me, had a face to-face encounter that meets the home health [id number] encounter requirements with this patient. The encounter with the patient was in whole, or in part, for the following med ical condition, which is the primary reason for home health care (list medical condition): complicated UTI I certify that, based on my findings, the following services are medically necessary home health services: My clinical findings support the need for the above services because: OT Assess ADL Status and Restore Function w ADLs PT Gait and Balance Training, Strengthening and Safety Skilled Nsg Assessment Further, I certify that my clinical findings support that this patient is homebound (i.e. absences from home require considerable and taxing effort and are for medical reasons or restoration services or infrequently or of short duration when for other reasons) because: Assistance of 1 Person for Ambulation/Activities Transportation Assistance/Unable to Leave Home Unassisted Certification for Home Health Services: Based on the above findings, I certify that this patient is confined to the home and needs intermittent penitentiary care, physical therapy and/or speech therapy or continues to need occupational therapy. The patient is under my care, and I have initiated the establishment of the plan of care. This patient will be followed by a physician who will periodically review the plan of care. Total Time Total Time Spent Total Time Spent (In Minutes): 90 minutes including time spent with patient, calling daughter, coordination of care with case management and completion of documentation Discharge Plan Discharge Items Patient Disposition: Home - Home Health Services Reason For Visit: DYSTONIA,UTI Discharge Diagnosis: 1. Dystonia- ? Parkinsonian Features/Parkinsonism 2. UTI- completed full course of antibiotics 3. Debility/Deconditioned state- Acute rehab recommended. Patient/Family declining 4. Nausea/Vomiting- suspect multifactorial (medication induced and from anxiety)-- recommend GI referral as OP 5. ? Fibrotic changes (lung) seen in imagin-- recommend referral to Pulmonology Condition on Discharge: Fair Activity: Per Instructions section Activity Comment: Recommend home PT/OT Non-emergency contact: Primary Care Provider, Recreation Manager, Neurologist and Order Desk Clerk Call non-emergency contact if: you have any medication questions and your symptoms worsen Follow-up/Referrals: Del Montenegro DO [Physician] - Steven Scott MD [Physician] - Shaun Felix MD [Primary Care Provider] - 03/26/21 2:15 pm (Cancel 03/20/[address] Felix. Keep 03/26/21 at 2:15 p.m.) Diet: Regular Addtl Attending Provider Instructions: - You were hospitalized with issues/concerns for dystonia (muscle tensing/abnormal movements) - Neurology has been on board and it appears as it these movements are consistent with Parkinson features/Parkinsonism - You were started on Medications for Parkinson's; however, you didn't tolerate them (in that you had developed nausea and vomiting) - The medication (Sinemet) dose was decreased but you still were unable to tolerate this medication - Sinemet was stopped and you were trialed on Requip and this also didn't sit well in your stomach - Your Sinemet/Requip and Aricept (as this dose was increased) were all stopped and your Nausea and Vomiting resolved - GI was consulted and recommended the addition of Reflux reducing medications (which has been prescribed) and would like to proceed with this as an outpatient --your omeproazole has been changed to pantoprazone (take twice a day for 2 weeks and then daily) --carafate has been started (recommend taking for 1-3 months). Dissolve 1 tab in 15mL liquid and take as a slurry - We have opted to avoid routine meds for Parkinson's and instead, can utilize Cogentin as needed for the abnormal muscle tensing (as recommended by Dr. Scott) - Follow up with Neuro (Dr. Scott) within 2 weeks - You have a UTI while you were in the hospital and complete a full course of antibiotics (this could have contributed to the nausea) - You initially had a positive Lyme test and were placed on antibiotics for this. The confirmatory test subsequently came back negative and the Doxycycline was stopped - During your time in the hospital, you (unfortunately) became weaker and more deconditioned. It was recommended that you go to an inpatient rehab facility but you and your family have declined and instead have opted to go home with home services (including nursing, PT/OT). In addition, your grown children have offered to stay with you (which is fantastic) - If you decide that you can not remain at home (on account of the weakness), notify your Family Physician (who can try to arrange for rehab from home) - Last, you were noted to have an abnormality on your chest xray (which appears to be fibrotic changes-- could be from aspiration from your Parkinsons?, could be Fibrosis). At any rate, consider Pulmonology referral (at discretion of PCP) - Follow up with your PCP: 7-10 days - return to the ED for new or worsening symptoms Pending Studies at Discharge: No Stand-Alone Forms: My [facility] Medications and DC Order Prescriptions: New benztropine 0.5 mg Tablet 0.5 mg PO DAILY PRN (Reason: dystonia/ muscle rigidity) Qty: 30 RF: 0 pantoprazole 40 mg Tablet,Delayed Release (Dr/Ec) 40 mg PO BID Qty: 45 RF: 0 sucralfate [Carafate] 1 gram tablet 1 g PO ACHS Qty: 120 RF: 0 Continued polyethylene glycol 3350 [Miralax] 17 gram/dose Powder 1 dose PO QPM RF: 0 Centrum Silver Men 300-600-300 mcg Tablet 1 tab PO QAM RF: 0 aspirin 81 mg Tablet,Delayed Release (Dr/Ec) 81 mg PO QAM RF: 0 PreserVision Lutein 226 mg-200 unit -5 mg-0.8 mg Capsule 1 cap PO BID RF: 0 buspirone 5 mg Tablet 2.5 mg PO BID RF: 0 sertraline 100 mg Tablet 100 mg PO QAM RF: 0 sertraline 25 mg Tablet 25 mg PO QAM RF: 0 cetirizine [Zyrtec] 10 mg Tablet 10 mg PO HS RF: 0 Discontinued ibuprofen [Advil] 200 mg Tablet 200 mg PO UD MDD fever/pain PRN (Reason: Pain) RF: 0 omeprazole 20 mg Capsule,Delayed Release(Dr/Ec) 20 mg PO HS RF: 0 donepezil 10 mg tablet 5 mg PO HS RF: 0 Discharge Orders: Discharge Order (Routine); Ordered 03/19/21 Ordered By: Myrna Mckeon/Other Patient Handouts: Understanding Functional Dystonia Admission Data Admit Date/Time: 03/10/21 15:57 Attending Provider: Rainer Mary Admit Provider: Josiah Miller Primary Care Provider: Shaun Felix Other Providers: David Mcnally ; [facility] ; Del Montenegro ; Rainer Mary Other Interventions: Discharge Summary Assessment (RN) Last Done: 03/19/21 11:52 Supervising Physician Co-Signing Physician Notes I supervised Myrna Petit PA-C on the care of this patient. I interviewed and examined the patient independently of her. The plan is as written in her note except for any following changes/exceptions: None Doing well today. Denies any symptoms. Ready for discharge. Coding Level of Care Code D/C DAY MANAGEMENT >30 MINS Diagnoses Debility R53.81 Hypokalemia E87.6 Nausea and vomiting R11.2 Muscle rigidity R29.898 Lyme disease A69.20 Acute UTI N39.0 Anxiety F41.9 NPH (normal pressure hydrocephalus) G91.2 Dementia F03.90 Abnormal chest x-ray R93.89 Hyponatremia E87.1
== END 2021-03-19 13:26 | disposition home health service (06) | DRG 56 ==
LOC: EDINP 08:43 → ED 08:43 → SUATTDRO 12:08 → 2N 14:37 → 3N 03-10 15:57 → SUATTDRO 03-10 15:57

== ENCOUNTER 2021-10-06 09:07 | Observation (INO) ==
[2021-10-06] MEDS ORDERED: SODIUM CHLORIDE 0.9% 500 ML IV SCH (10:00)
--- NOTE | 2021-10-06 10:02 | Emergency Department Note ---
History of Present Illness General Chief complaint: Weakness Stated complaint: weakness Time Seen by Provider: 10/06/21 09:39 Source: patient, family (Daughter who is at the bedside), RN notes reviewed and old records reviewed Mode of arrival: EMS Limitations: no limitations History of Present Illness This patient is an 86-year-old male has a very complicated medical history is brought in by his family via EMS after he has had increasing weakness. It has been going on for about the last week. He is baseline weak but is gotten worse. He did have a Prevnar shot on Thursday he also gets these episodes where he gets dystonia and they give him Cogentin but it typically makes him weak for a couple days his daughter thinks he is just a lot more weaker than normal. Today they were trying to get him out of the lift and he slid and they could not get him up. There is no trauma they had to call ambulance. He had increased difficulty walking. His weakness is global and nonfocal. He has a chronic cough that is been unchanged. They thought that he felt warm at one point but has had no documented fever. No dysuria hematuria denies pain anywhere no headache. No difficulty speaking or swallowing. No vomiting or diarrhea. Melena stool. He is on no blood thinners. He does have parkinsonian-like symptoms on they have tried him on Sinemet in the past and it made him significantly worse. He also has a shunt for normal pressure hydrocephalus which his daughter says has not improved his symptoms either. Home Medications Medication Instructions Recorded Confirmed Type vdfaxvse-sah-hdyzk acid 300 1 tab PO QAM 02/17/18 10/06/21 History mcg-lycopene 600 mcg-lutein 300 mcg tablet (Centrum Silver Men) polyethylene glycol 3350 17 1 dose PO QPM 02/17/18 10/06/21 History gram/dose oral powder (Miralax) aspirin 81 mg tablet,delayed 81 mg PO QAM 02/07/21 10/06/21 History release sertraline 100 mg tablet 100 mg PO QAM 02/14/21 10/06/21 History sertraline 25 mg tablet 25 mg PO QAM 02/14/21 10/06/21 History cetirizine 10 mg tablet (Zyrtec) 10 mg PO HS 03/08/21 10/06/21 History buspirone 5 mg tablet 5 mg PO TID tab 07/15/21 10/06/21 History donepezil 5 mg tablet (Aricept) 2.5 mg PO DAILY #30 tab 07/15/21 10/06/21 Rx Flutter Valve #1 ea 07/30/21 07/30/21 Rx omeprazole 20 mg capsule,delayed 20 mg PO BID #60 cap 08/07/21 10/06/21 Rx release benztropine 1 mg tablet 1 mg PO DAILY PRN #30 tab 08/12/21 10/06/21 Rx fluticasone propionate 50 1 spray INTRANASAL DAILY PRN 10/06/21 10/06/21 History mcg/actuation nasal spray,suspension (Allergy Relief (fluticasone)) ibuprofen 200 mg tablet 200 mg PO Q6H PRN 10/06/21 10/06/21 History vit C 250 mg-vit E 90 mg-zinc 40 1 tab PO BID 10/06/21 10/06/21 History mg-copper 1 im-[id number]-mcrvcd capsule (PreserVision AREDS-2) Allergies Allergy/AdvReac Type Severity Reaction Status Date / Time No Known Allergies Allergy Verified 10/06/21 10:16 Past Med/Surg History Medical History (Updated 10/06/21 @ 16:19 by Steven Sotelo MD) Anxiety Arthritis Constipation Depression Eczema Hiatal hernia DX 30 YR AGO History of prostate cancer HX 1996 PROSTATECTOMY, NO CHEMO/NO RADIATION Hypertension Otosclerosis Overactive bladder Spinal stenosis B/L LE NEUROPATHY Urinary incontinence DEPENDS Urinary incontinence Weight loss 20 POUNDS OVER LAST 2 YRS/HAS UPCOMING APPOINTMENT WITH NEUROLOGY SEPTEMBER 2020 ...? [facility] Surgical History History of ankle surgery LEFT History of colonoscopy History of ear surgery L (WITH METAL IMPLANT) 2/2 OTOSCLEROSIS History of hernia repair History of inguinal hernia repair History of right cataract extraction Hx of prostatectomy Hx of tonsillectomy Family History Mother , age 84 with an intercerebral hemorrhage Family history of diabetes mellitus Hypertension Diabetes Sister Family history of diabetes mellitus Diabetes Anxiety Father , age 82 of pancreatic cancer Pancreatic cancer Brother No problems noted. 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, 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61 How many Children do You have: 4 Feels Safe at Home: Yes Assistive Devices: Hearing Aid - Bilateral and Walker Review of Systems A total of 10 systems reviewed and were otherwise negative Physical Exam Vital Signs Vital Signs - 24 hr 10/06/21 09:27 10/06/21 10:00 10/06/21 11:48 Temperature 36.5 C Temperature Source Oral Pulse Rate 96 H Pulse Rate [Apical] 55 L 56 L Respiratory Rate 20 20 18 Blood Pressure 128/72 Blood Pressure [Right Arm] 115/70 125/76 Blood Pressure Mean 90 Blood Pressure Mean [Right Arm] 85 92 Pulse Oximetry 97 98 99 Oxygen Delivery Method Room Air Room Air Room Air Sepsis Recent Fever Within 48 Hours No Sepsis New/Unexplained Change in Mental Status No Sepsis Action Taken by Nursing No Action Required General: Well developed well nourished older male who is hard of hearing but answers questions appropriately. In no acute distress, breathing comfortably on room air. Normal speech HEENT: Normal cephalic atraumatic. Pupils are equal round and reactive to light. Extraocular movements are intact. Oropharynx is pink with moist mucous membranes. No swelling of the mouth lips or tongue. There is a deficit felt in the skull table from where he had surgery for shunt. It is healed and there is no tenderness or drainage. Neck: Supple with a midline trachea. No meningeal signs or stiffness, no JVD or bruits. No Stridor. Chest: Clear to auscultation bilaterally. No wheezes or rhonchi. No increased work of breathing. Heart: Regular rate and rhythm without murmurs or gallops. Abdomen: Soft nontender, nondistended without rebound guarding or rigidity. Extremities: No cyanosis clubbing or edema. No calf tenderness or assymetry Spine/Back. Non tender to palpation. No CVA tenderness Skin: Good turgor without rashes. Neurologic exam: Cranial nerves two through 12 are intact. Motor and sensation are intact and symmetrical throughout although he is globally weak in the arms and legs. Course Administered Medications Buspirone HCl (Buspirone 5 Mg Tab) 5 mg PO TID [facility] Stop: 11/05/21 14:06 Last Admin: 10/06/21 15:32 Dose: 5 mg Documented by: [id number] Fluticasone Propionate (Fluticasone Propionate Na Spr 16 Gm Btl) 1 sprays VESTA D ANABELLA [facility] Stop: 11/05/21 14:06 Last Admin: 10/06/21 15:32 Dose: 1 sprays Documented by: [id number] Discontinued Medications Aspirin (Aspirin 81 Mg Ectab) 81 mg PO NOW ONE Stop: 10/06/21 13:01 Last Admin: 10/06/21 13:24 Dose: 81 mg Documented by: [id number] Donepezil HCl (Donepezil Hcl 5 Mg Tab) 2.5 mg PO NOW ONE Stop: 10/06/21 12:46 Last Admin: 10/06/21 14:54 Dose: Not Given Documented by: [id number] Sodium Chloride (Nss) 500 mls @ 999 mls/hr IV .Q31M [facility] Stop: 10/06/21 10:30 Last Infusion: 10/06/21 11:10 Dose: 0 mls/hr Documented by: [id number] Admin: 10/06/21 10:37 Dose: 999 mls/hr Documented by: [id number] Sertraline HCl (Sertraline Hcl 50 Mg Tablet) 125 mg PO NOW ONE Stop: 10/06/21 12:46 Last Admin: 10/06/21 13:24 Dose: 125 mg Documented by: [id number] Medical Decision Making Differential Diagnosis Weakness, dehydration, UTI, infection, medication side effect, arrhythmia, neurologic disease, electrolyte or metabolic abnormality Medical Records Attestation: I reviewed the patient's medical records. Home Medications Current Medication List: was personally reviewed by me Laboratory Data Attestation: I reviewed the patient's lab results. Result diagrams: 10/06/21 10:18 10/06/21 10:18 Lab Results 10/06/21 10/06/21 10/06/21 Range/Units 10:18 10:18 10:18 WBC 5.92 (4.8-10.8) K/uL RBC 4.15 L (4.7-6.1) M/uL Hgb 13.3 L (14.0-18.0) g/dL Hct 38.1 L (42-52) % MCV 91.8 (80-100) fL MCH 32.0 (25-34) pg MCHC 34.9 (32-36) g/dL RDW Std Deviation 46.5 H (36.4-46.3) fL RDW Coeff of Bambi 13.8 (11.5-14.5) % Plt Count 147 (130-400) K/uL MPV 9.1 (7.4-10.4) fL Immature Gran % (Auto) 0.8 % Neut % (Auto) 70.4 % Lymph % (Auto) 16.9 % [place] % (Auto) 11.0 % Eos % (Auto) 0.7 % Baso % (Auto) 0.2 % Neut # (Auto) 4.17 (1.4-6.5) K/uL Lymph # (Auto) 1.00 L (1.2-3.4) K/uL [place] # (Auto) 0.65 H (0.11-0.59) K/uL Eos # (Auto) 0.04 (0-0.5) K/uL Baso # (Auto) 0.01 (0-0.2) K/uL Immature Gran # (Auto) 0.05 H (0.00-0.02) K/uL PT 11.9 (9.0-12.0) Seconds INR 1.1 (0.9-1.1) Sodium 132 L (136-145) mmol/L Potassium 4.2 (3.5-5.1) mmol/L Chloride 95 L (98-107) mmol/L Carbon Dioxide 32 (21-32) mmol/L Anion Gap 5 (3-11) BUN 11 (6-23) mg/dl Creatinine 0.70 (0.6-1.4) mg/dl Est Cr Clr Drug Dosing 71.9 ml/min Est GFR ( Amer) 98.3 ml/min Est GFR (Non-Af Amer) 84.9 ml/min BUN/Creatinine Ratio 15.7 (10-20) Glucose 91 (70-99(Fasting)) mg/dl Lactate (0.4-2.0) mmol/L Calcium 9.0 (8.5-10.1) mg/dl Magnesium 2.1 (1.7-2.4) mg/dl Total Bilirubin 1.5 H (0.2-1.0) mg/dl AST 29 (13-39) U/L ALT 26 (7-52) U/L Alkaline Phosphatase 88 (34-104) U/L Total Creatine Kinase 35 (30-223) U/L Troponin I High Sens 3.1 (0-20) pg/ml Total Protein 7.3 (6.0-8.3) gm/dl Albumin 4.0 (3.4-5.0) gm/dl Globulin 3.3 (2.5-4.0) gm/dl Albumin/Globulin Ratio 1.2 (0.9-2) TSH (0.300-4.500) uIu/ml Urine Color Urine Appearance (Clear) Urine pH (4.5-7.5) Ur Specific [place] (1.000-1.030) Urine Protein (Negative) Urine Glucose (UA) (Negative) Urine Ketones (Negative) Urine Blood (Negative) Urine Nitrite (Negative) Urine Bilirubin (Negative) Urine Urobilinogen (Negative) Ur Leukocyte Esterase (Negative) Urine WBC (Auto) (0-5) /hpf Urine RBC (Auto) (0-4) /hpf U Hyaline Cast (Auto) (0-5) /lpf U Epithel Cells (Auto) (0-5) /lpf Urine Bacteria (Auto) (Negative) SARS-CoV-2 (PCR) (Negative) Influenza Type A (PCR) (Neg) Influenza Type B (PCR) (Neg) RSV (RT-PCR) (Neg) 10/06/21 10/06/21 10/06/21 Range/Units 10:18 10:18 10:34 WBC (4.8-10.8) K/uL RBC (4.7-6.1) M/uL Hgb (14.0-18.0) g/dL Hct (42-52) % MCV (80-100) fL MCH (25-34) pg MCHC (32-36) g/dL RDW Std Deviation (36.4-46.3) fL RDW Coeff of Bambi (11.5-14.5) % Plt Count (130-400) K/uL MPV (7.4-10.4) fL Immature Gran % (Auto) % Neut % (Auto) % Lymph % (Auto) % [place] % (Auto) % Eos % (Auto) % Baso % (Auto) % Neut # (Auto) (1.4-6.5) K/uL Lymph # (Auto) (1.2-3.4) K/uL [place] # (Auto) (0.11-0.59) K/uL Eos # (Auto) (0-0.5) K/uL Baso # (Auto) (0-0.2) K/uL Immature Gran # (Auto) (0.00-0.02) K/uL PT (9.0-12.0) Seconds INR (0.9-1.1) Sodium (136-145) mmol/L Potassium (3.5-5.1) mmol/L Chloride (98-107) mmol/L Carbon Dioxide (21-32) mmol/L Anion Gap (3-11) BUN (6-23) mg/dl Creatinine (0.6-1.4) mg/dl Est Cr Clr Drug Dosing ml/min Est GFR ( Amer) ml/min Est GFR (Non-Af Amer) ml/min BUN/Creatinine Ratio (10-20) Glucose (70-99(Fasting)) mg/dl Lactate 0.7 (0.4-2.0) mmol/L Calcium (8.5-10.1) mg/dl Magnesium (1.7-2.4) mg/dl Total Bilirubin (0.2-1.0) mg/dl AST (13-39) U/L ALT (7-52) U/L Alkaline Phosphatase (34-104) U/L Total Creatine Kinase (30-223) U/L Troponin I High Sens (0-20) pg/ml Total Protein (6.0-8.3) gm/dl Albumin (3.4-5.0) gm/dl Globulin (2.5-4.0) gm/dl Albumin/Globulin Ratio (0.9-2) TSH 1.903 (0.300-4.500) uIu/ml Urine Color Urine Appearance (Clear) Urine pH (4.5-7.5) Ur Specific [place] (1.000-1.030) Urine Protein (Negative) Urine Glucose (UA) (Negative) Urine Ketones (Negative) Urine Blood (Negative) Urine Nitrite (Negative) Urine Bilirubin (Negative) Urine Urobilinogen (Negative) Ur Leukocyte Esterase (Negative) Urine WBC (Auto) (0-5) /hpf Urine RBC (Auto) (0-4) /hpf U Hyaline Cast (Auto) (0-5) /lpf U Epithel Cells (Auto) (0-5) /lpf Urine Bacteria (Auto) (Negative) SARS-CoV-2 (PCR) NEGATIVE (Negative) Influenza Type A (PCR) Negative (Neg) Influenza Type B (PCR) Negative (Neg) RSV (RT-PCR) Negative (Neg) 10/06/21 Range/Units 10:48 WBC (4.8-10.8) K/uL RBC (4.7-6.1) M/uL Hgb (14.0-18.0) g/dL Hct (42-52) % MCV (80-100) fL MCH (25-34) pg MCHC (32-36) g/dL RDW Std Deviation (36.4-46.3) fL RDW Coeff of Bambi (11.5-14.5) % Plt Count (130-400) K/uL MPV (7.4-10.4) fL Immature Gran % (Auto) % Neut % (Auto) % Lymph % (Auto) % [place] % (Auto) % Eos % (Auto) % Baso % (Auto) % Neut # (Auto) (1.4-6.5) K/uL Lymph # (Auto) (1.2-3.4) K/uL [place] # (Auto) (0.11-0.59) K/uL Eos # (Auto) (0-0.5) K/uL Baso # (Auto) (0-0.2) K/uL Immature Gran # (Auto) (0.00-0.02) K/uL PT (9.0-12.0) Seconds INR (0.9-1.1) Sodium (136-145) mmol/L Potassium (3.5-5.1) mmol/L Chloride (98-107) mmol/L Carbon Dioxide (21-32) mmol/L Anion Gap (3-11) BUN (6-23) mg/dl Creatinine (0.6-1.4) mg/dl Est Cr Clr Drug Dosing ml/min Est GFR ( Amer) ml/min Est GFR (Non-Af Amer) ml/min BUN/Creatinine Ratio (10-20) Glucose (70-99(Fasting)) mg/dl Lactate (0.4-2.0) mmol/L Calcium (8.5-10.1) mg/dl Magnesium (1.7-2.4) mg/dl Total Bilirubin (0.2-1.0) mg/dl AST (13-39) U/L ALT (7-52) U/L Alkaline Phosphatase (34-104) U/L Total Creatine Kinase (30-223) U/L Troponin I High Sens (0-20) pg/ml Total Protein (6.0-8.3) gm/dl Albumin (3.4-5.0) gm/dl Globulin (2.5-4.0) gm/dl Albumin/Globulin Ratio (0.9-2) TSH (0.300-4.500) uIu/ml Urine Color Yellow Urine Appearance Cloudy A (Clear) Urine pH 8.5 H (4.5-7.5) Ur Specific [place] 1.009 (1.000-1.030) Urine Protein Negative (Negative) Urine Glucose (UA) Negative (Negative) Urine Ketones Negative (Negative) Urine Blood Negative (Negative) Urine Nitrite Negative (Negative) Urine Bilirubin Negative (Negative) Urine Urobilinogen Negative (Negative) Ur Leukocyte Esterase Negative (Negative) Urine WBC (Auto) 0 (0-5) /hpf Urine RBC (Auto) 0-4 (0-4) /hpf U Hyaline Cast (Auto) 0 (0-5) /lpf U Epithel Cells (Auto) 0-5 (0-5) /lpf Urine Bacteria (Auto) Negative (Negative) SARS-CoV-2 (PCR) (Negative) Influenza Type A (PCR) (Neg) Influenza Type B (PCR) (Neg) RSV (RT-PCR) (Neg) Imaging Data Attestation: I personally reviewed and interpreted this imaging study as rey jeronimo: My Impression: Chest x-rayno acute infiltrate, failure, pneumothorax seen. CTNo hemorrhage or mass-effect. Radiologist's Impression: Chest X-Ray 10/06/21 09:53 XR chest 1V portable HISTORY: weakness COMPARISON: Chest 03/11/2021. FINDINGS: There are low lung volumes. No pneumothorax. No pleural effusions. The heart remains mildly enlarged. Chronic interstitial thickening persists. No new focal lung consolidations identified. No evidence for pulmonary edema. IMPRESSION: Low lung volumes with chronic interstitial thickening, unchanged. ACT 112: Negative or not required by law. Electronically signed by: Celso Martinez M.D. 10/06/2021 10:[address] 10/06/21 09:[address] DOSE: 1228.53 mGy.cm HISTORY: weakness TECHNIQUE: Multiaxial CT images of the head were performed without the use of intravenous contrast. Automated exposure control was utilized for this study. A dose lowering technique was utilized adhering to the principles of ALARA. Comparison: None. Findings: The paranasal sinuses and mastoid air cells are clear. The calvarium and skull base are intact. There is no mass, hematoma, midline shift, acute infarct. White matter hypodensity is nonspecific but suggestive of microvascular ischemic change. The ventricles and sulci demonstrate mild age-related involutional changes. Right frontal omar hole with an old right frontal ventr iculostomy tract again noted. Impression: No significant change compared to the prior study. No acute intracranial abnormality. ACT 112: Negative or not required by law. Electronically signed by: Celso Martinez M.D. 10/06/2021 11:30 AM ECG Data Attestation: I personally reviewed and interpreted this ECG as follows: Indication: + weakness Rate (beats per minute): 59 Rhythm: + sinus bradycardia ECG Intervals/blocks: + Right Bundle branch block ECG [place]: + Normal ECG ST segments: + Normal ST segments ECG Findings: + Poor R wave progression and + Other (Poor Baseline/artifact); no PACs or no PVCs Comparison ECG Date: from (02/24/21) Change: no significant change MDM Narrative This patient comes in as described above he has baseline weakness but lives at home he is got increasingly weak over the last week. He is nonfocal on my exam and is just globally weak he has stable vital signs. IV access was established multiple blood testing was obtained to evaluate his weakness this included blood cultures and lactic acid as well as urinalysis and culture to evaluate for possible infection his abdomen is benign. I did do a CAT scan of his head given his history and also an EKG and urinalysis and culture. He was reassessed frequently. I did talk to his daughter at length who is at the bedside. CAT scan of his head is unremarkable. Chest x-ray is unremarkable. EKG does not suggest acute coronary syndrome and is unchanged from previous. He has no elevation of his troponin. No severe electrolyte or metabolic abnormalities. Urinalysis is unremarkable. Despite all of his work-up thus far looking unremarkable but he is very weak. This apparently has been getting worse over the last several days to weeks. I am concerned about their ability to care for him in his current state. The family is not agreement with him admitting for further evaluation and work-up. I have consulted Dr. Miller who is the hospitalist to see her in the ER for these measures Continuous cardiac monitoring: An order was placed in the EMR for continuous cardiac monitoring. The patient was noted to be in sinus bradycardia with a rate of 58. Impression & Plan Weakness, NPH (normal pressure hydrocephalus), Dementia, Ambulatory dysfunction, Bradycardia, sinus, Lab test negative for COVID-19 virus Discharge Plan Visit Data Chief Complaint: Weakness Stated Complaint: weakness ED Provider: Steven Sotelo Discharge Problem: Weakness, NPH (normal pressure hydrocephalus), Dementia, Ambulatory dysfunction, Bradycardia, sinus, Lab test negative for COVID-19 virus Patient Disposition: Admitted As Inpatient Discharge Instructions Interventions: ED Discharge Assessment Last Done: 10/06/21 13:36
[2021-10-06 10:29] LABS: Basophils # (auto) 0.01 K/uL (0-0.2); Basophils % (auto) 0.2 %; Eosinophils # (auto) 0.04 K/uL (0-0.5); Eosinophils % (auto) 0.7 %; Hematocrit (blood only) 38.1 % (42-52); Hemoglobin 13.3 g/dL (14.0-18.0); Immature Granulocytes # (auto) 0.05 K/uL (0.00-0.02); Immature Granulocytes % (auto) 0.8 %; Lymphocytes % (auto) 16.9 %; Mean Corpuscular Hgb Conc 34.9 g/dL (32-36); Mean Corpuscular Volume 91.8 fL (80-100); Mean Platelet Volume 9.1 fL (7.4-10.4); Monocytes # (auto) 0.65 K/uL (0.11-0.59); Neutrophils # (auto) 4.17 K/uL (1.4-6.5); Neutrophils % (auto) 70.4 %; Platelet Count 147 K/uL (130-400); RDW Coefficient of Variation 13.8 % (11.5-14.5); RDW Standard Deviation 46.5 fL (36.4-46.3); Red Blood Count 4.15 M/uL (4.7-6.1); White Blood Count 5.92 K/uL (4.8-10.8)
--- NOTE | 2021-10-06 10:35 | XRay Report ---
XR chest 1V portable HISTORY: weakness COMPARISON: Chest 03/11/2021. FINDINGS: There are low lung volumes. No pneumothorax. No pleural effusions. The heart remains mildly enlarged. Chronic interstitial thickening persists. No new focal lung consolidations identified. No evidence for pulmonary edema. IMPRESSION: Low lung volumes with chronic interstitial thickening, unchanged. ACT 112: Negative or not required by law. Electronically signed by: Celso Martinez M.D. 10/06/2021 10:34 AM
[2021-10-06 10:48] LABS: Albumin Globulin Ratio 1.2 (0.9-2); BUN Creatinine Ratio 15.7 (10-20); Bilirubin,Total 1.5 mg/dl (0.2-1.0); Creatinine Clr Calc Pharmacy 71.9 ml/min; Est GFR (African American) 98.3 ml/min; Est GFR (Non-African American) 84.9 ml/min; Globulin 3.3 gm/dl (2.5-4.0); Magnesium 2.1 mg/dl (1.7-2.4); Potassium 4.2 mmol/L (3.5-5.1); Total Protein 7.3 gm/dl (6.0-8.3)
[2021-10-06 10:54] LABS: Troponin I High Sensitivity 3.1 pg/ml (0-20)
[2021-10-06 11:00] LABS: Appearance Urine Cloudy (Clear); Bacteria Urine Automated Negative (Negative); Bilirubin Urine Negative (Negative); Blood Urine Negative (Negative); Cast Urine Automated 0 /lpf (0-5); Color Urine Yellow; Epithelial Cell Urine Auto 0-5 /lpf (0-5); Glucose Urine UA Negative (Negative); Ketones Urine Negative (Negative); Leukocyte Esterase Urine Negative (Negative); Nitrite Urine Negative (Negative); Protein Urine Negative (Negative); RBC Urine Automated 0-4 /hpf (0-4); Specific Gravity Urine 1.009 (1.000-1.030); Urobilinogen Urine Negative (Negative); WBC Urine Automated 0 /hpf (0-5); pH Urine 8.5 (4.5-7.5)
[2021-10-06 11:02] LABS: INR 1.1 (0.9-1.1); Prothrombin Time 11.9 Seconds (9.0-12.0)
[2021-10-06 11:23] LABS: Influenza A virus by PCR Negative (Neg); Influenza B virus by PCR Negative (Neg); RSV by PCR Negative (Neg); SARS CoV2 RNA(COVID-19) InHosp NEGATIVE (Negative)
--- NOTE | 2021-10-06 11:32 | CT Scan Report ---
HEAD CT NONCONTRAST CT DOSE: 1228.53 mGy.cm HISTORY: weakness TECHNIQUE: Multiaxial CT images of the head were performed without the use of intravenous contrast. A utomated exposure control was utilized for this study. A dose lowering technique was utilized adheri ng to the principles of ALARA. Comparison: None. Findings: The paranasal sinuses and mastoid air cells are clear. The calvarium and skull base are int act. There is no mass, hematoma, midline shift, acute infarct. White matter hypodensity is nonspecifi c but suggestive of microvascular ischemic change. The ventricles and sulci demonstrate mild age-rela sammy involutional changes. Right frontal omar hole with an old right frontal ventriculostomy tract aga in noted. Impression: No significant change compared to the prior study. No acute intracranial abnormality. ACT 112: Negative or not required by law. Electronically signed by: Celso Martinez M.D. 10/06/2021 11:30 AM
--- NOTE | 2021-10-06 12:40 | History & Physical Report ---
Date of Service October 06, 2021 Assessment & Plan (1) Weakness: Plan: - Chronic, but worse since receiving Prevnar vaccine on Thursday. No focal weakness or numbness/tingling. Labs and imaging unremarkable. - Will keep patient overnight for observation, will have PT and OT evaluation in AM. Patient's family is not seeking placement unless patient is severely debilitated and unable to return home safely. Patient and to move in with daughter within a month. (2) Parkinsonian features: Plan: - Ongoing eval with neurology. 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 - Continue Aricept 2.5 mg daily, benztropine 1 mg as needed. - Follow-up appointment w/ Dr. Scott on 10/18. (3) Depression: Plan: - Continue sertraline 125 mg daily. (4) Anxiety: Plan: - Continue BuSpar 3 times daily. - History of hospital associated anxiety/agitation. Patient's daughterPinky will be staying with patient as she is his caregiver, patient has potential become harm to himself during hospitalization due to anxiety/agitation. (5) Constipation: Plan: - MiraLAX daily with as needed milk of magnesia. (6) GERD (gastroesophageal reflux disease): Plan: - Continue PPI. (7) Allergic rhinitis with postnasal drip: Plan: - Continue Flonase per as needed, Zyrtec 10 mg at night. Plan: - Med/surge overnight for observation. - SCDs for DVT PPx. - DNR/DNI. History of Present Illness Chief Complaint: increasing weakness x 2 days Primary Care Provider: Shaun Felix MD Mr. Ac is an 86-year-old male with past medical history of atypical Parkinson symptoms, depression, anxiety, and GERD who presents today from home with increase in baseline weakness. Patient received a Prevnar vaccine on Thursday, since then he has been more weak than usual and fatigued. This morning, they were trying to get him up when he slid onto the ground. No injuries, however family had difficulty getting patient up so they called EMS. EMS recommended evaluation in ED for increased global weakness. Over the past few days, besides his weakness and fatigue, he is been without fever/chills, chest pain, palpitations, shortness of breath, change in baseline chronic cough, nausea, vomiting, abdominal pain. No change to bowel movements, no dysuria, increased urinary frequency or urinary retention. He is being seen by neurology for work-up of weakness, as well as dystonic episodes. Previously treated with Sinemet for presumed Parkinson's, however made patient significantly worse. 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 In ED, he is mildly bradycardic HR 56, otherwise VS wnl and stable. Labs showed baseline anemia Hgb 13.3, Na 134, t. bili 1.5, TSH within normal limits. UA without evidence of infection. CXR shows chronic interstitial thickening which is unchanged. Head CT showed no significant change since prior study, no acute intracranial abnormality. Allergies Allergy/AdvReac Type Severity Reaction Status Date / Time No Known Allergies Allergy Verified 10/06/21 10:16 Home Medications Medication Instructions Recorded Confirmed Type dvglyhqb-vzs-iawuu acid 300 1 tab PO QAM 02/17/18 10/06/21 History mcg-lycopene 600 mcg-lutein 300 mcg tablet (Centrum Silver Men) polyethylene glycol 3350 17 1 dose PO QPM 02/17/18 10/06/21 History gram/dose oral powder (Miralax) aspirin 81 mg tablet,delayed 81 mg PO QAM 02/07/21 10/06/21 History release sertraline 100 mg tablet 100 mg PO QAM 02/14/21 10/06/21 History sertraline 25 mg tablet 25 mg PO QAM 02/14/21 10/06/21 History cetirizine 10 mg tablet (Zyrtec) 10 mg PO HS 03/08/21 10/06/21 History buspirone 5 mg tablet 5 mg PO TID tab 07/15/21 10/06/21 History Flutter Valve #1 ea 07/30/21 07/30/21 Rx omeprazole 20 mg capsule,delayed 20 mg PO BID #60 cap 08/07/21 10/06/21 Rx release benztropine 1 mg tablet 1 mg PO DAILY PRN #30 tab 08/12/21 10/06/21 Rx fluticasone propionate 50 1 spray INTRANASAL DAILY PRN 10/06/21 10/06/21 History mcg/actuation nasal spray,suspension (Allergy Relief (fluticasone)) ibuprofen 200 mg tablet 200 mg PO Q6H PRN 10/06/21 10/06/21 History vit C 250 mg-vit E 90 mg-zinc 40 1 tab PO BID 10/06/21 10/06/21 History mg-copper 1 vb-cgnarm-mogsil capsule (PreserVision AREDS-2) donepezil 5 mg tablet (Aricept) 5 mg PO DAILY #30 tab 10/07/21 10/06/21 Rx thiamine HCl (vitamin B1) 100 mg 100 mg PO QAM #30 tab 10/07/21 Rx tablet Past Med/Surg History Medical History (Updated 10/06/21 @ 16:19 by Steven Sotelo MD) Anxiety Arthritis Constipation Depression Eczema Hiatal hernia DX 30 YR AGO History of prostate cancer HX 1996 PROSTATECTOMY, NO CHEMO/NO RADIATION Hypertension Otosclerosis Overactive bladder Spinal stenosis B/L LE NEUROPATHY Urinary incontinence DEPENDS Urinary incontinence Weight loss 20 POUNDS OVER LAST 2 YRS/HAS UPCOMING APPOINTMENT WITH NEUROLOGY SEPTEMBER 2020 ...? [facility] Surgical History History of ankle surgery LEFT History of colonoscopy History of ear surgery L (WITH METAL IMPLANT) 2/2 OTOSCLEROSIS History of hernia repair History of inguinal hernia repair History of right cataract extraction Hx of prostatectomy Hx of tonsillectomy Family History Mother , age 84 with an intercerebral hemorrhage Family history of diabetes mellitus Hypertension Diabetes Sister Family history of diabetes mellitus Diabetes Anxiety Father , age 82 of pancreatic cancer Pancreatic cancer Brother No problems noted. 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, 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61 How many Children do You have: 4 Feels Safe at Home: Yes Assistive Devices: Walker Review of Systems Review of Systems: Constitutional: worsening of chronic global weakness x 2 days; No fever/chills, fatigue, myalgias, anorexia, night sweats Eyes: No diplopia, no worsening or blurred vision ENT: normal hearing, no trouble swallowing Respiratory: No cough, sputum, dyspnea at rest or on exertion Cardiovascular: No chest pain, tightness or palpitations Abdomen: No pain, nausea, vomiting, diarrhea or constipation : Denies dysuria, hematuria, increased urgency/frequency, urinary retention Musculoskeletal: No joint pain, calf pain, swelling Neurologic: No weakness, numbness/tingling, or balance problems Psychiatric: No anxiety or depression Skin: No rash or itch Physical Exam Physical Exam: General: awake, alert, no apparent distress Head: Normocephalic, atraumatic ENT: PERRL, EOMI, no pharyngeal exudate, mucous membranes moist Chest: Clear to auscultation, on room air, no adventitious breath sounds Cardiac: Regular rate and rhythm, no murmur, no JVD, normal peripheral pulses, good capillary refill Abdominal: NABS x 4 quadrants, soft, nontender to palpation, no rebound, guarding or tenderness Extremities: Normal inspection, no peripheral edema or erythema, calfs nontender to palpation Psych: Normal mood and affect Neuro: AAO x 3, strength intact bilaterally and rated 5/5, no motor deficits, speech is clear, no peripheral sensory deficits Skin: no rash or erythema Results & Data Results & Data ([facility]) Vital Signs (Past 12 Hours) Vital Signs Temp Pulse Pulse Resp BP BP Pulse Ox 10/06/21 11:48 56 L 18 125/76 99 10/06/21 10:00 55 L 20 115/70 98 10/06/21 09:27 36.5 C 96 H 20 128/72 97 Laboratory Results Abnormal lab results 10/06/21 10/06/21 10/06/21 Range/Units 10:18 10:18 10:48 RBC 4.15 L (4.7-6.1) M/uL Hgb 13.3 L (14.0-18.0) g/dL Hct 38.1 L (42-52) % RDW Std Deviation 46.5 H (36.4-46.3) fL Lymph # (Auto) 1.00 L (1.2-3.4) K/uL Edwards # (Auto) 0.65 H (0.11-0.59) K/uL Immature Gran # (Auto) 0.05 H (0.00-0.02) K/uL Sodium 132 L (136-145) mmol/L Chloride 95 L (98-107) mmol/L Total Bilirubin 1.5 H (0.2-1.0) mg/dl Urine Appearance Cloudy A (Clear) Urine pH 8.5 H (4.5-7.5) Diagnostic Findings Chest X-Ray 10/06/21 09:53 XR chest 1V portable HISTORY: weakness COMPARISON: Chest 03/11/2021. FINDINGS: There are low lung volumes. No pneumothorax. No pleural effusions. The heart remains mildly enlarged. Chronic interstitial thickening persists. No new focal lung consolidations identified. No evidence for pulmonary edema. IMPRESSION: Low lung volumes with chronic interstitial thickening, unchanged. ACT 112: Negative or not required by law. Electronically signed by: Celso Martinez M.D. 10/06/2021 10:[address] 10/06/21 09:[address] DOSE: 1228.53 mGy.cm HISTORY: weakness TECHNIQUE: Multiaxial CT images of the head were performed without the use of intravenous contrast. Automated exposure control was utilized for this study. A dose lowering technique was utilized adhering to the principles of ALARA. Comparison: None. Findings: The paranasal sinuses and mastoid air cells are clear. The calvarium and skull base are intact. There is no mass, hematoma, midline shift, acute infarct. White matter hypodensity is nonspecific but suggestive of microvascular ischemic change. The ventricles and sulci demonstrate mild age-related involutional changes. 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 Impression: No significant change compared to the prior study. No acute intracranial abnormality. ACT 112: Negative or not required by law. Electronically signed by: Celso Martinez M.D. 10/06/2021 11:30 AM ECG Additional Comments: Sinus bradycardia Right bundle branch block Septal infarct (cited on or before 06-OCT-2021) Abnormal ECG When compared with ECG of 06-MAR-2021 08:41, QRS duration has increased Questionable change in initial forces of Septal leads ST no longer elevated in Inferior leads ST no longer depressed in Lateral leads. Code Status & VTE Plan Code Status DNR/DNI. Supervising Physician Co-Signing Physician Notes I personally saw and examined the patient. 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 Increased fatigue following Prevnar vaccination. O/E A&O3, HS RRR, no murmurs, Chest CTBA, Abdo SNT A/P Fatigue - Suspect related to Prevnar. No change in medications recommended. PT/OT. Likely able to discharge home. PG Care Time/CCT Total # of Minutes Spent Total Time Spent with Patient: Total time spent is greater than 50% in coordination of care (as documented) at patient's floor/unit and/or counseling patient: Coding Level of Care Code INT OBSERVATION CARE 70M LVL 3 Diagnoses Weakness R53.1 Parkinsonian features R25.9 Depression F32.9 Anxiety F41.9 Constipation K59.00 GERD (gastroesophageal reflux disease) K21.9 Allergic rhinitis with postnasal drip J30.9; R09.82
[2021-10-06] MEDS ORDERED: SERTRALINE HCL 50 MG TABLET PO ONE (12:45)
[2021-10-06] MEDS ORDERED: DONEPEZIL HCL 5 MG TAB PO ONE (12:45)
[2021-10-06] MEDS ORDERED: ASPIRIN 81 MG ECTAB PO ONE (13:00)
[2021-10-06] MEDS ORDERED: MAGNESIUM HYDROXIDE SUSP 30 ML UDC PO PRN (14:07)
[2021-10-06] MEDS ORDERED: IBUPROFEN 200 MG TAB PO PRN (14:07)
[2021-10-06] MEDS ORDERED: ONDANSETRON INJ 2 MG/ML 2 ML VIAL IV PRN (14:07)
[2021-10-06] MEDS ORDERED: ACETAMINOPHEN 325 MG TAB PO PRN (14:07)
[2021-10-06] MEDS ORDERED: BENZTROPINE MESYLATE 1 MG TAB PO PRN (14:07)
[2021-10-06] MEDS: FLUTICASONE PROPIONATE NA SPR 16 GM BTL NAE SCH (15:32)
[2021-10-06] MEDS: busPIRone 5 MG TAB PO SCH ×2 (15:32→20:39)
[2021-10-06] MEDS: PANTOprazole 40 MG TAB PO SCH (20:40)
[2021-10-06] MEDS ORDERED: DONEPEZIL HCL 5 MG TAB PO SCH (21:00)
[2021-10-06] MEDS ORDERED: NON-FORMULARY MEDICATION (Vit C,E-Zn-Coppr-Lutein-Zeaxan [Preservision Areds-2] 250-90-40- PO SCH (21:00)
[2021-10-06] MEDS ORDERED: CETIRIZINE HCL 10 MG TABLET PO SCH (21:00)
[2021-10-06] MEDS ORDERED: POLYETHYLENE (MIRALAX) 17 GM PACK PO SCH (21:00)
--- NOTE | 2021-10-07 08:26 | Hospitalist Progress Note ---
Date of Service October 07, 2021 Assessment & Plan (1) Weakness: Plan: - Chronic, but worse since receiving Prevnar vaccine on Thursday. No focal weakness or numbness/tingling. Labs and imaging unremarkable. - Will keep patient overnight for observation, will have PT and OT evaluation in AM. Patient's family is not seeking placement unless patient is severely debilitated and unable to return home safely. Patient and to move in with daughter within a month. (2) Parkinsonian features: Plan: - Ongoing eval with neurology. 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 - Continue Aricept 2.5 mg daily, benztropine 1 mg as needed. - Follow-up appointment w/ Dr. Scott on 10/18. (3) Depression: Plan: - Continue sertraline 125 mg daily. (4) Anxiety: Plan: - Continue BuSpar 3 times daily. - History of hospital associated anxiety/agitation. Patient's daughterPinky will be staying with patient as she is his caregiver, patient has potential become harm to himself during hospitalization due to anxiety/agitation. (5) Constipation: Plan: - MiraLAX daily with as needed milk of magnesia. (6) GERD (gastroesophageal reflux disease): Plan: - Continue PPI. (7) Allergic rhinitis with postnasal drip: Plan: - Continue Flonase per as needed, Zyrtec 10 mg at night. Plan: - Med/surge overnight for observation. - SCDs for DVT PPx. - DNR/DNI. Admission and Anticipated Discharge Date Admission Date: October 06, 2021 Results & Data Results & Data ([facility]) Vital Signs (Past 12 Hours) Vital Signs Temp Pulse Resp BP BP Pulse Ox 10/07/21 07:33 36.7 C 60 16 134/68 95 10/06/21 22:46 36.7 C 81 16 110/67 94 PG Care Time/CCT Total # of Minutes Spent Total Time Spent with Patient: Total time spent is greater than 50% in coordination of care (as documented) at patient's floor/unit and/or counseling patient: Coding Diagnoses Weakness R53.1 Parkinsonian features R25.9 Depression F32.9 Anxiety F41.9 Constipation K59.00 GERD (gastroesophageal reflux disease) K21.9 Allergic rhinitis with postnasal drip J30.9; R09.82
[2021-10-07] MEDS ORDERED: DONEPEZIL HCL 5 MG TAB PO SCH (09:00)
[2021-10-07] MEDS ORDERED: SERTRALINE HCL 100 MG TABLET PO SCH (09:00)
[2021-10-07] MEDS ORDERED: ASPIRIN 81 MG ECTAB PO SCH (09:00)
[2021-10-07] MEDS ORDERED: SERTRALINE HCL 50 MG TABLET PO SCH (09:00)
[2021-10-07] MEDS ORDERED: MULTIVITAMIN TAB PO SCH (09:00)
[2021-10-07] MEDS: PANTOprazole 40 MG TAB PO SCH (09:05)
[2021-10-07] MEDS: FLUTICASONE PROPIONATE NA SPR 16 GM BTL NAE SCH (09:05)
[2021-10-07] MEDS: busPIRone 5 MG TAB PO SCH ×2 (09:05→14:07)
[2021-10-07 09:38] LABS: Hemoglobin 13.1 g/dL (14.0-18.0); Mean Corpuscular Hgb Conc 34.5 g/dL (32-36); Mean Corpuscular Volume 92.7 fL (80-100); Mean Platelet Volume 9.8 fL (7.4-10.4); Platelet Count 167 K/uL (130-400); RDW Coefficient of Variation 13.9 % (11.5-14.5); RDW Standard Deviation 47.1 fL (36.4-46.3); White Blood Count 5.93 K/uL (4.8-10.8)
[2021-10-07 09:44] LABS: Albumin Level 3.8 gm/dl (3.4-5.0); BUN Creatinine Ratio 18.1 (10-20); Bilirubin Direct 0.2 mg/dl (0-0.2); Bilirubin,Total 1.2 mg/dl (0.2-1.0); Calcium 8.8 mg/dl (8.5-10.1); Creatinine Clr Calc Pharmacy 69.9 ml/min; Est GFR (African American) 97.2 ml/min; Est GFR (Non-African American) 83.9 ml/min; Total Protein 6.8 gm/dl (6.0-8.3)
[2021-10-07 10:01] LABS: Lyme Ab IgG w/WB Rflx Negative (Negative)
[2021-10-07 10:18] LABS: Lyme Ab IgM w/WB Rflx Positive (Negative)
[2021-10-07] MEDS ORDERED: THIAMINE HCL 100 MG TAB PO SCH (11:00)
--- NOTE | 2021-10-07 13:03 | Electrocardiogram Report ---
Test Reason : Blood Pressure : / mmHG Vent. Rate : 059 BPM Atrial Rate : 059 BPM P-R Int : 206 ms QRS Dur : 134 ms QT Int : 456 ms P-R-T Axes : 044 001 004 degrees QTc Int : 451 ms Poor data quality, interpretation may be adversely affected Sinus bradycardia Right bundle branch block Abnormal ECG When compared with ECG of 06-MAR-2021 08:41, QRS duration has increased ST no longer elevated in Inferior leads ST no longer depressed in Lateral leads Confirmed by Alexis Lynn ([id number]) on 10/07/2021 1:03:05 PM Referred By: REFERRED SELF Confirmed By:Syed Lynn
--- NOTE | 2021-10-07 13:30 | Discharge Summary ---
Date of Service October 07, 2021 Admission HPI Per Admitting Provider Mr. Ac is an 86-year-old male with past medical history of atypical Parkinson symptoms, depression, anxiety, and GERD who presents today from home with increase in baseline weakness. Patient received a Prevnar vaccine on Thursday, since then he has been more weak than usual and fatigued. This morning, they were trying to get him up when he slid onto the ground. No injuries, however family had difficulty getting patient up so they called EMS. EMS recommended evaluation in ED for increased global weakness. Over the past few days, besides his weakness and fatigue, he is been without fever/chills, chest pain, palpitations, shortness of breath, change in baseline chronic cough, nausea, vomiting, abdominal pain. No change to bowel movements, no dysuria, increased urinary frequency or urinary retention. He is being seen by neurology for work-up of weakness, as well as dystonic episodes. Previously treated with Sinemet for presumed Parkinson's, however made patient significantly worse. 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 In ED, he is mildly bradycardic HR 56, otherwise VS wnl and stable. Labs showed baseline anemia Hgb 13.3, Na 134, t. bili 1.5, TSH within normal limits. UA without evidence of infection. CXR shows chronic interstitial thickening which is unchanged. Head CT showed no significant change since prior study, no acute intracranial abnormality. Admission Exam Per Admitting Provider General: awake, alert, no apparent distress Head: Normocephalic, atraumatic ENT: PERRL, EOMI, no pharyngeal exudate, mucous membranes moist Chest: Clear to auscultation, on room air, no adventitious breath sounds Cardiac: Regular rate and rhythm, no murmur, no JVD, normal peripheral pulses, good capillary refill Abdominal: NABS x 4 quadrants, soft, nontender to palpation, no rebound, guarding or tenderness Extremities: Normal inspection, no peripheral edema or erythema, calfs nontender to palpation Psych: Normal mood and affect Neuro: AAO x 3, strength intact bilaterally and rated 5/5, no motor deficits, speech is clear, no peripheral sensory deficits Skin: no rash or erythema Principal Diagnosis Weakness following vaccine Discharge Exam General: WD, WN male sitting in bed, NAD, daughter at bedside HEENT: head normocephalic, atraumatic, mm slightly dry, trachea midline without deviation Resp: CTAB, no w/c, on room air CV: RRR, no m/r/g, calves non-tender, pulses palpable, NVI GI: +BS, soft, non-tender : no ayala MSK/Neuro: moves all extremities, follows commands, CN intact grossly, strength equal bilaterally, no facial droop Skin: warm, dry, small skin/tear ?start decubitus ulcer to R buttocks (wound RN to see) Psych: Aox3, pleasant and cooperative Discharge Data Allergies Allergy/AdvReac Type Severity Reaction Status Date / Time No Known Allergies Allergy Verified 10/06/21 10:16 Consultations 10/06/21 11:48 ED Decision to Admit Stat Ordered Studies Chest X-Ray 10/06/21 09:53 XR chest 1V portable HISTORY: weakness COMPARISON: Chest 03/11/2021. FINDINGS: There are low lung volumes. No pneumothorax. No pleural effusions. The heart remains mildly enlarged. Chronic interstitial thickening persists. No new focal lung consolidations identified. No evidence for pulmonary edema. IMPRESSION: Low lung volumes with chronic interstitial thickening, unchanged. ACT 112: Negative or not required by law. Electronically signed by: Celso Martinez M.D. 10/06/2021 10:[address] 10/06/21 09:[address] DOSE: 1228.53 mGy.cm HISTORY: weakness TECHNIQUE: Multiaxial CT images of the head were performed without the use of intravenous contrast. Automated exposure control was utilized for this study. A dose lowering technique was utilized adhering to the principles of ALARA. Comparison: None. Findings: The paranasal sinuses and mastoid air cells are clear. The calvarium and skull base are intact. There is no mass, hematoma, midline shift, acute infarct. White matter hypodensity is nonspecific but suggestive of microvascular ischemic change. The ventricles and sulci demonstrate mild age-related involutional changes. 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 Impression: No significant change compared to the prior study. No acute intracranial abnormality. ACT 112: Negative or not required by law. Electronically signed by: Celso Martinez M.D. 10/06/2021 11:30 AM Hospital Course (1) Weakness: Chronic, but worse since receiving Prevnar vaccine on Thursday. No focal weakness or numbness/tingling. Labs and imaging unremarkable. Observed overnight. Back to baseline, reportedly ~95% per daughter who had been staying with him (they also lift weights daily) UA without evidence for infection. WBC without elevation. Afebrile CXR with unchanged chronic interstitial thickening Does have CT chest in prior month ordered by pulmonary --> peripheral honeycombing seen. 5mm nodule in LLL. F/u outpatient * Of note, also does note a small thyroid nodule which can be evaluated outpatient with non-emergent thyroid ultrasound. TSH 1.[address] head NEGATIVE PT/OT consulted-- ok for return home, rec'd 15/12 care Placed on empiric thiamine daily -- B1 level obtained prior to d/c but send out testing Did not want HH arranged as gets nursing visit through the [place]. Patient's family is not seeking placement unless patient is severely debilitated and unable to return home safely. Patient and to move in with daughter within the next month. Did have wound RN see prior to d/c for possible start of R sided decubitus ulcer. --> Optifoam placed. To continue if effective, otherwise can clean with soap/water and use aloe barrier type cream. F/u PCP (2) Parkinsonian features: Ongoing eval with neurology. Atypical features, possibly Lewy body disease, In the setting of NPH s/p 3rd ventriculostomy at [facility]. Continued Aricept, but has been taking 5mg daily (had prior increased to 10mg daily but decreased back to 5mg per daughter due to side effects) Continued benztropine 1 mg as needed. Follow-up appointment w/ Dr. Scott on 10/18 (3) Depression: Continued sertraline 125 mg daily. ?if contributing to hyponatremia at baseline (4) Anxiety: - Continue BuSpar 3 times daily. - History of hospital associated anxiety/agitation. Patient's daughterPinky stayed during inpatient stay -- she is his caregiver (5) Constipation: - MiraLAX daily with as needed milk of magnesia. --> given and diarrhea x 2. Given specimen cup if persistent issues with such at home but likely just moving bowels. No abdominal pain or nausea/vomiting reported (6) GERD (gastroesophageal reflux disease): - Continued PPI. (7) Allergic rhinitis with postnasal drip: - Continue Flonase per as needed, Zyrtec 10 mg at night. --> increased use flonase next 3 days, instructed occasional mucinex (had taken in past) and should continue with the omeprazole BID given possible allergy related/reflux/cough discharged home with family support Total Time Total Time Spent Total Time Spent (In Minutes): 60 Discharge Plan Discharge Items Patient Disposition: Home - Home Health Services Reason For Visit: ACUTE ON CHRONIC WEAKNESS Discharge Diagnosis: Weakness from Vaccine Goals: You have been hospitalized for an acute medical problem. During your stay at [facility], we have made an effort to correct the problem that brought you to the hospital while keeping you as comfortable as possible. Medications were used to bring your condition under control and your discharge instructions will include directions for any medications you should take after leaving the hospital. Please make sure you see your Primary Care Provider as part of your follow up plan. Activity: Resume your previous activity Non-emergency contact: Primary Care Provider Call non-emergency contact if: you have any medication questions and your symptoms worsen Follow-up/Referrals: Steven Scott MD [Physician] - 10/18/21 10:00 am (already with appointment 10/18) Shaun Felix MD [Primary Care Provider] - 10/15/21 9:00 am Diet: Heart Healthy Ambulatory Orders: Giardia Ag, Stool (Routine) Location: None Selected Ordered By: Amy Nina Attending Provider Instructions: You have been hospitalized for weakness.CT of the head was NEGATIVE for acute process.Urine did not show any evidence for infection. Lab testing inconclusive for any abnormalities. Did discuss possible Lyme, however is similar to last admission and you will be called if the sent out test for confirmation returns positive. Chest xray did not show any evidence for pneumonia and as discussed, chronic thickening and can use flonase as well as occasional Mucinex to help thin secretions. * There was a note of a small thyroid nodule on the prior CT of the chest done in August. It is recommended you have a non-emergent ultrasound of this that can be done on an outpatient basis. Of note, we did check a thyroid stimulating hormone while inpatient, and this level was normal as well. You have also been given a cup if diarrhea persists for testing, but this could have been from medications given to prevent constipation. You have been started on empiric thiamine (B1) and this lab will likely take a week or two to return. If normal, this can be stopped. It is a water soluble vitamin and excess will be urinated out. Your sodium level appears to be chronically low. It is stable in comparison to prior values, and can be related to your SSRI (sertraline). They have been stable, as discussed, but may not be a bad idea to discuss, given addition of buspar, which may be contributing as well. Keep area of buttocks clean, reposition every several hours. Clean with soap/water and can use topical aloe, otherwise if Optifoam successful at healing this you can continue these as well. You should follow up with your PCP in the next 7-10 days to monitor your status after discharge. They can consider additional urine studies for sodium if warranted. Please return to the ER for any worsening symptoms, fever, chest pain, shortness of breath, or for any other symptoms concerning for you. Take care! Pending Studies at Discharge: Yes Studies:: Blood cultures -- no growth to date Western Blot for Lyme B1 (thiamine level) Stand-Alone Forms: My [facility] Medications and DC Order Prescriptions: New thiamine HCl (vitamin B1) 100 mg Tablet 100 mg PO QAM Qty: 30 RF: 0 Continued buspirone 5 mg tablet 5 mg PO TID RF: 0 omeprazole 20 mg capsule,delayed release(DR/EC) 20 mg PO BID Qty: 60 RF: 2 benztropine 1 mg tablet 1 mg PO DAILY PRN (Reason: dystonia/ muscle rigidity) Qty: 30 RF: 0 (DME) Flutter Valve Device See Rx Instructions .MEDSUPPLY Qty: 1 RF: 0 polyethylene glycol 3350 [Miralax] 17 gram/dose Powder 1 dose PO QPM RF: 0 Centrum Silver Men 300-600-300 mcg Tablet 1 tab PO QAM RF: 0 aspirin 81 mg Tablet,Delayed Release (Dr/Ec) 81 mg PO QAM RF: 0 sertraline 100 mg Tablet 100 mg PO QAM RF: 0 sertraline 25 mg Tablet 25 mg PO QAM RF: 0 cetirizine [Zyrtec] 10 mg Tablet 10 mg PO HS RF: 0 PreserVision AREDS-2 250-90-40-1 mg Capsule 1 tab PO BID RF: 0 fluticasone propionate [Allergy Relief (fluticasone)] 50 mcg/actuation spray,suspension 1 spray intranasal DAILY PRN (Reason: Other) RF: 0 ibuprofen 200 mg Tablet 200 mg PO Q6H PRN (Reason: Pain) RF: 0 Changed donepezil [Aricept] 5 mg tablet 5 mg PO DAILY Qty: 30 RF: 2 Discharge Orders: Discharge Order (Routine); Ordered 10/07/21 Ordered By: Amy Becerra Admission Data Admit Date/Time: 10/06/21 12:38 Attending Provider: Josiah Butler Admit Provider: Josiah Miller Primary Care Provider: Shaun Felix Other Providers: Steven Scott ; Sara Mir ; Josiah Miller Other Interventions: Discharge Summary Assessment (RN) Last Done: 10/07/21 15:49 Coding Level of Care Code D/C DAY MANAGEMENT >30 MINS Diagnoses Weakness R53.1 Parkinsonian features R25.9 Depression F32.9 Anxiety F41.9 Constipation K59.00 GERD (gastroesophageal reflux disease) K21.9 Allergic rhinitis with postnasal drip J30.9; R09.82
[2021-10-09 02:12] LABS: 18KDIGG Band REACTIVE; 23KDIGG Band NON-REACTIVE; 23KDIGM Band REACTIVE; 28KDIGG Band NON-REACTIVE; 30KDIGG Band NON-REACTIVE; 39KDIGG Band NON-REACTIVE; 39KDIGM Band NON-REACTIVE; 41KDIGG Band REACTIVE; 41KDIGM Band NON-REACTIVE; 45KDIGG Band NON-REACTIVE; 58KDIGG Band NON-REACTIVE; 66KDIGG Band NON-REACTIVE; 93KDIGG Band NON-REACTIVE; Lyme Antibodies, WB IgG NEGATIVE (NEGATIVE); Lyme Antibodies, WB IgM NEGATIVE (NEGATIVE)
== END 2021-10-07 16:15 | disposition home health service (06) ==
LOC: 3N 09:07 → ED 09:07 → SUATTDRO 12:38 → 3N 13:36